=== PATIENT | female | born 1985 | race Caucasian/White ===

== ENCOUNTER 2020-04-27 13:39 | Emergency (ER) | payer SELFPAY ==
--- NOTE | 2020-04-27 14:55 | ER ---
Nurse's Notes [facility] Name: Alison Morelos Age: 34 yrs Sex: Female : 1985 Arrival Date: 04/27/2020 Time: 13:50 Bed 12 Private MD: Diagnosis: Allergic contact dermatitis Presentation: 04/27 14:16 Chief complaint: Patient states: Rashes on arms and legs x 1 week. Reports itchiness. ca1 Coronavirus screen: Proceed with normal triage. Patient denies a cough. Patient denies shortness of breath or difficulty breathing. Patient denies measured and/or subjective temperature greater than 100.4F prior to today's visit. Patient denies travel on a cruise ship or to a country the [facility] currently lists as an affected area. Patient denies contact with known and/or suspected case of COVID-19. Ebola Screen: Patient negative for fever greater than or equal to 101.5 degrees Fahrenheit, and additional compatible Ebola Virus Disease symptoms Patient denies exposure to infectious person. Patient denies travel to an Ebola-affected area in the 21 days before illness onset. No symptoms or risks identified at this time. Initial Sepsis Screen: Does the patient meet any 2 criteria? No. Patient's initial sepsis screen is negative. Does the patient have a suspected source of infection? No. Patient's initial sepsis screen is negative. Risk Assessment: Do you want to hurt yourself or someone else? Patient reports no desire to harm self or others. Onset of symptoms was April 27, 2020. 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 - Social history:: Smoking status: Patient reports the use of cigarette tobacco products, smokes one-half pack cigarettes per day. Screenin:51 Abuse screen: Denies threats or abuse. Denies injuries from another. Nutritional ss screening: No deficits noted. Tuberculosis screening: Never had TB. Fall Risk None identified. Assessment: 14:51 General: Appears in no apparent distress. comfortable, Behavior is calm, cooperative. ss Pain: Denies pain. Neuro: Level of Consciousness is awake, alert, obeys commands, Oriented to person, place, time, situation. Cardiovascular: Capillary refill < 3 seconds is brisk in bilateral fingers. Respiratory: Airway is patent Respiratory effort is even, unlabored, Respiratory pattern is regular, symmetrical. GI: Patient currently denies diarrhea, nausea, vomiting. Derm: Skin is intact, is healthy with good turgor, Skin is pink, warm \T\ dry. normal. Derm: Skin Skin is Skin is Rash noted that is itchy, on right arm, left arm, right leg and left leg. Musculoskeletal: Circulation, motion, and sensation intact. Range of motion: intact in all extremities. 14:51 Reassessment: Pt reports she climbed a tree and two days later her rash popped up. Has ss been 6 days. Vital Signs: 14:16 BP 111 / 79; Pulse 88; Resp 15 S; Temp 97.4(TE); Pulse Ox 100% on R/A; Weight 58.97 kg ca1 (R); Height 5 ft. 1 in. (154.94 cm) (M); 14:16 Body Mass Index 24.56 (58.97 kg, 154.94 cm) ca1 ED Course: 13:50 Patient arrived in ED. fj1 14:18 Triage completed. ca1 14:19 Arm band placed on right wrist. ca1 14:39 Patricia Bass [facility]-C [facility]. kb 14:39 Tommy Bone MD is Attending Physician. kb 14:51 Damari Bernal RN is Primary Nurse. ss 14:51 Patient has correct armband on for positive identification. Bed in low position. Call ss light in reach. 14:57 No provider procedures requiring assistance completed. Patient did not have IV access ss during this emergency room visit. Administered Medications: No medications were administered Outcome: 14:55 Discharge ordered by . kb 14:57 Discharged to home ss 14:57 Condition: good 14:57 Discharge instructions given to patient, Instructed on discharge instructions, follow up and referral plans. medication usage, Demonstrated understanding of instructions, follow-up care, medications, Prescriptions given X 2. 14:58 Patient left the ED. Signatures: Patricia Bass FNP-C OCCUPATIONAL THERAPY CO DIRECTOR-Damari Alarcon RN RN Gypsy Maldonado RN RN ca1 Shalom, Michael fj1
--- NOTE | 2020-04-27 14:55 | EDPHYS ---
Physician Documentation [facility] Name: Alison Morelos Age: 34 yrs Sex: Female : 1985 Arrival Date: 04/27/2020 Time: 13:50 Bed 12 Private MD: ED Physician Tommy Bone HPI: 04/27 14:53 This 34 yrs old Female presents to ER via Ambulatory with complaints of Rash. kb 14:53 The patient's rash thought to be caused by an unknown cause. The rash is located on the kb right arm, left arm, right leg and left leg. The rash can be described as macular, papular. Onset: The symptoms/episode began/occurred 7 day(s) ago. Associated signs and symptoms: Pertinent positives: itching. Severity of symptoms: At their worst the symptoms were moderate in the emergency department the symptoms are unchanged. Treatment given at home: Benadryl. The patient has not experienced similar symptoms in the past. The patient has not recently seen a physician. Pt reports rash to arms and legs that started on Friday and has been spreading. 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 - Social history:: Smoking status: Patient reports the use of cigarette tobacco products, smokes one-half pack cigarettes per day. ROS: 14:52 Constitutional: Negative for fever, chills, and weight loss, Cardiovascular: Negative kb for chest pain, palpitations, and edema, Respiratory: Negative for shortness of breath, cough, wheezing, and pleuritic chest pain, Abdomen/GI: Negative for abdominal pain, nausea, vomiting, diarrhea, and constipation, Back: Negative for injury and pain, MS/Extremity: Negative for injury and deformity, Neuro: Negative for headache, weakness, numbness, tingling, and seizure. 14:52 Skin: Positive for rash, of the right arm, left arm, right leg and left leg. Exam: 14:52 Constitutional: This is a well developed, well nourished patient who is awake, alert, kb and in no acute distress. Head/Face: Normocephalic, atraumatic. Chest/axilla: Normal chest wall appearance and motion. Nontender with no deformity. No lesions are appreciated. Cardiovascular: Regular rate and rhythm with a normal S1 and S2. No gallops, murmurs, or rubs. Normal PMI, no JVD. No pulse deficits. Respiratory: Lungs have equal breath sounds bilaterally, clear to auscultation and percussion. No rales, rhonchi or wheezes noted. No increased work of breathing, no retractions or nasal flaring. Abdomen/GI: Soft, non-tender, with normal bowel sounds. No distension or tympany. No guarding or rebound. No evidence of tenderness throughout. MS/ Extremity: Pulses equal, no cyanosis. Neurovascular intact. Full, normal range of motion. Neuro: Awake and alert, GCS 15, oriented to person, place, time, and situation. Cranial nerves II-XII grossly intact. Motor strength 5/5 in all extremities. Sensory grossly intact. Cerebellar exam normal. Normal gait. 14:52 Skin: rash a moderate rash is noted, consistent with contact dermatitis, on the right arm, left arm, right leg and left leg. Vital Signs: 14:16 BP 111 / 79; Pulse 88; Resp 15 S; Temp 97.4(TE); Pulse Ox 100% on R/A; Weight 58.97 kg ca1 (R); Height 5 ft. 1 in. (154.94 cm) (M); 14:16 Body Mass Index 24.56 (58.97 kg, 154.94 cm) ca1 MDM: 14:39 Patient medically screened. kb 14:51 Data reviewed: vital signs, nurses notes. Data interpreted: Pulse oximetry: on room air kb is 100 %. Interpretation: normal. Counseling: I had a detailed discussion with the patient and/or guardian regarding: the historical points, exam findings, and any diagnostic results supporting the discharge/admit diagnosis, the need for outpatient follow up, a family practitioner, to return to the emergency department if symptoms worsen or persist or if there are any questions or concerns that arise at home. Administered Medications: No medications were administered Disposition: 04/27/20 14:55 Discharged to Home. Impression: Allergic contact dermatitis. - Condition is Stable. - Discharge Instructions: Contact Dermatitis, [id number]. - Prescriptions for Pepcid 20 mg Oral Tablet - take 1 tablet by ORAL route every 12 hours for 5 days; 10 tablet. Prednisone 20 mg Oral Tablet - take 1 tablet by ORAL route once daily for 5 days; 5 tablet. - Medication Reconciliation Form, Thank You Letter, Antibiotic Education, Prescription Opioid Use form. - Follow up: Private Physician; When: 2 - 3 days; Reason: Recheck today's complaints, Continuance of care, Re-evaluation by your physician. Follow up: Emergency Department; When: As needed; Reason: Worsening of condition. Addendum: 05/01/2020 16:30 Co-signature as Attending Physician, Tommy Bone MD I agree with the assessment and k dr plan of care. Signatures: Patricia Bass, MAXIM-C STUDENT ACTIVITIES DIRECTOR-CkTommy Garcia MD MD [facility] Damari Bernal, NELSON RN ss Gypsy Maldonado RN RN ca1 Corrections: (The following items were deleted from the chart) 04/27 14:58 14:55 04/27/2020 14:55 Discharged to Home. Impression: Allergic contact dermatitis. ss Condition is Stable. Forms are Medication Reconciliation Form, Thank You Letter, Antibiotic Education, Prescription Opioid Use. Follow up: Private Physician; When: 2 - 3 days; Reason: Recheck today's complaints, Continuance of care, Re-evaluation by your physician. Follow up: Emergency Department; When: As needed; Reason: Worsening of condition. kb
[2020-04-27 15:26] VITALS: BP 111/79; TEMP 97.4; O2SAT 100
== END 2020-04-27 14:58 | disposition home or self-care (01) ==
LOC: ER 13:39
DX: L23.9 Allergic contact dermatitis, unspecified cause (principal); F17.210 Nicotine dependence, cigarettes, uncomplicated
CPT/HCPCS: 99282

== ENCOUNTER 2020-10-26 15:52 | Emergency (ER) | payer SELFPAY ==
--- OUTSIDE RECORDS SUMMARY | 2020-10-26 15:53 | XMS REPORT | Clinical Summary ---
:1985 Author Organization [facility] Address [address] [place] [address] Care Team Providers Name Role Phone Pcp, No MD Primary Care Provider Unavailable Allergies No Known Allergies Medications Not on file Active Problems Not on file Encounters Date Type Specialty Care Team Description 06/13/2020 Emergency Emergency Medicine Obinna Fortune MD Rash (Primary Dx) 06/13/2020 Travel 06/12/2020 Travel after 10/26/2019 Social History Tobacco Use Types Packs/Day Years Used Date Never Assessed Sex Assigned at Date Recorded Not on file Last Filed Vital Signs Vital Sign Reading Time Taken Comments Blood Pressure 135/80 06/13/2020 2:30 AM CDT Pulse 92 06/13/2020 2:30 AM CDT Temperature 36.6 C (97.9 F) 06/12/2020 5:45 PM CDT Respiratory Rate 17 06/13/2020 2:30 AM CDT Oxygen Saturation 98% 06/13/2020 2:30 AM CDT Inhaled Oxygen Concentration - - Weight 59 kg (130 lb) 06/12/2020 5:45 PM CDT Height 154.9 cm (5' 1") 06/12/2020 5:45 PM CDT Body Mass Index 24.56 06/12/2020 5:45 PM CDT Plan of Treatment Health Maintenance Due Date Last Done Comments CERVICAL CANCER SCREENING PAP ONLY (Age 21-65) 2006 INFLUENZA VACCINE (#1) 2020 Results Not on fileafter 10/26/2019
--- OUTSIDE RECORDS SUMMARY | 2020-10-26 15:53 | XMS REPORT | Continuity of Care Document ---
:1985 Author Organization [facility] t Address [address] [place] [address] Care Team Providers Name Role Phone Pcp MD Primary Care Physician Unavailable Devika ARZATE, R Attending Clinician Zurdo SEANZ L Attending Clinician Adin ARZATE O Attending Clinician Problems This patient has no known problems. Allergies, Adverse Reactions, Alerts This patient has no known allergies or adverse reactions. Social History Social Habit Start Date Stop Date Quantity Comments Source Sex Assigned At [facility] Medications This patient has no known medications. Vital Signs Vital Name Observation Time Observation Value Comments Source Systolic blood 2020-06-13 02:30:00 135 mm[Hg] [facility] Diastolic blood 2020-06-13 02:30:00 80 mm[Hg] [facility] Heart rate 2020-06-13 02:30:00 92 /min [facility] Respiratory rate 2020-06-13 02:30:00 17 /min [facility] Oxygen saturation in 2020-06-13 02:30:00 98 /min [facility] - Arterial blood by [facility] Pulse oximetry Body temperature 2020-06-12 17:45:00 36.61 Precious [facility] Body height 2020-06-12 17:45:00 154.9 cm [facility] Body weight 2020-06-12 17:45:00 58.968 kg [facility] BMI 2020-06-12 17:45:00 24.56 kg/m2 [facility] Procedures This patient has no known procedures. Plan of Care Planned Activity Planned Date Details Comments Source Future Scheduled 2020-06-[address] [facility] - Test 00:00:00 (#1) [code = [facility] INFLUENZA VACCINE (#1)] Future Scheduled 2006 Screening for JORDIN Khoury es - Test 00:00:00 malignant neoplasm Medical [facility] enter of cervix (procedure) [code = 236553523] Encounters Start End Encounter Admission Attending Care Care Encounter Source Date/Time Date/Time Type Type Clinicians Facility Department ID 2020-04-30 2020-05-01 Emergency Renner, TRAUMA [id number] 23:17:08 00:49:00 Dexter Omalley DRISCOLL [id number] 2019-12-04 2019-12-04 Emergency Morrical, TRAUMA [id number] 13:46:09 17:21:00 Paco Harvey DRISCOLL [id number] Results This patient has no known results.
[2020-10-26] MEDS ORDERED: NA CHLORIDE 0.9% 1,000 ML ONE (17:46)
[2020-10-26] MEDS ORDERED: KETOROLAC 30 MG/ML INJ ONE (17:46)
[2020-10-26 17:51] LABS: Urine Bacteria <20 /HPF (<20); Urine RBC <5 /HPF (NONE SEEN)
[2020-10-26 17:52] LABS: Urine Mucus 1+ /HPF (NONE SEEN)
[2020-10-26 17:52] LABS: Urine Blood NEGATIVE (NEG); Urine Glucose NEGATIVE (NEG); Urine Protein NEGATIVE (NEG); Urine Specific Gravity 1.025 (1.005-1.030)
--- NOTE | 2020-10-26 19:08 | RAD REPORT ---
EXAM DESCRIPTION: CT - Abdomen Pelvis Wo Contrast - 10/26/2020 6:33 pm CLINICAL HISTORY: Abdominal pain COMPARISON: None TECHNIQUE: Computed axial tomography of the abdomen and pelvis was obtained. IV and oral contrast we re not requested. All CT scans are performed using dose optimization technique as appropriate and may include automated exposure control or mA/KV adjustment according to patient size. FINDINGS: The evaluation of solid organs, vessels and bowel is limited secondary to the lack of con trast administration. The liver, pancreas, adrenals and kidneys appear grossly normal. Splenic granulomata The appendix is normal. There is no evidence of diverticulitis. Moderate amount of stool within the colon. An IUD is in good position Mild dilatation of several loops of jejunum. Mild wall thickening. Fluid is present within jejunum Mild to moderate anterior subluxation L5 on S1. Spondylolysis L5 IMPRESSION: Mild dilatation of several loops of jejunum. Mild wall thickening. Fluid is present with in jejunum. These findings may indicate an enteritis Moderate amount stool within the colon
[2020-10-26 21:21] LABS: Basophils % 0.1 % (0-1.3); Hematocrit 41.7 % (36.0-45.0); Lymphocytes % 4.1 % (15.3-44.8); MPV 8.7 fL (7.6-11.3); RBC Red Blood Cell Count 4.65 M/uL (3.86-4.86)
[2020-10-26 21:24] LABS: BUN Blood Urea Nitrogen 12 mg/dL (7-18); Bicarbonate 24 mmol/L (21-32); Glucose Level 113 mg/dL (74-106); Potassium 3.4 mmol/L (3.5-5.1); Sodium Level 138 mmol/L (136-145)
[2020-10-26 22:00] LABS: Blood Morphology Comment NOT SEEN (NOT SEEN); Platelet Estimate ADEQ
[2020-10-26] MEDS ORDERED: AZITHROMYCIN 250 MG TAB ONE (22:16)
[2020-10-26] MEDS ORDERED: CEFTRIAXONE 250 MG/VIAL ONE (22:17)
[2020-10-26] MEDS ORDERED: WATER FOR INJ,STERILE 10 ML ONE (22:18)
--- NOTE | 2020-10-26 23:38 | EDPHYS ---
Physician Documentation [facility] Name: Alison Morelos Age: 35 yrs Sex: Female : 1985 Arrival Date: 10/26/2020 Time: 15:54 Bed 23 Private MD: ED Physician Tommy Bone HPI: 10/26 20:18 This 35 yrs old Female presents to ER via Ambulatory with complaints of Side kb Pain. 20:18 The patient presents with abdominal pain in the left lower quadrant. Onset: The kb symptoms/episode began/occurred this morning. The symptoms do not radiate. Associated signs and symptoms: none. The symptoms are described as constant. Modifying factors: The symptoms are alleviated by nothing, the symptoms are aggravated by pressure. Severity of pain: At its worst the pain was moderate in the emergency department the pain is unchanged. The patient has not experienced similar symptoms in the past. The patient has not recently seen a physician. Pt reports LLQ pain that started this morning. Also reports vaginal discharge for 4 days. Reports she has had unprotected sex and believes she got a STD from a partner. 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 - Social history:: Smoking status: Patient reports the use of cigarette tobacco products, smokes one-half pack cigarettes per day. ROS: 20:18 Constitutional: Negative for fever, chills, and weight loss, Cardiovascular: Negative kb for chest pain, palpitations, and edema, Respiratory: Negative for shortness of breath, cough, wheezing, and pleuritic chest pain, Back: Negative for injury and pain, MS/Extremity: Negative for injury and deformity, Skin: Negative for injury, rash, and discoloration, Neuro: Negative for headache, weakness, numbness, tingling, and seizure. 20:18 Abdomen/GI: Positive for abdominal pain, Negative for nausea, vomiting, and diarrhea. 20:18 : Positive for vaginal discharge. Exam: 20:18 Constitutional: This is a well developed, well nourished patient who is awake, alert, kb and in no acute distress. Head/Face: Normocephalic, atraumatic. Chest/axilla: Normal chest wall appearance and motion. Nontender with no deformity. No lesions are appreciated. Cardiovascular: Regular rate and rhythm with a normal S1 and S2. No gallops, murmurs, or rubs. Normal PMI, no JVD. No pulse deficits. Respiratory: Lungs have equal breath sounds bilaterally, clear to auscultation and percussion. No rales, rhonchi or wheezes noted. No increased work of breathing, no retractions or nasal flaring. Skin: Warm, dry with normal turgor. Normal color with no rashes, no lesions, and no evidence of cellulitis. MS/ Extremity: Pulses equal, no cyanosis. Neurovascular intact. Full, normal range of motion. Neuro: Awake and alert, GCS 15, oriented to person, place, time, and situation. Cranial nerves II-XII grossly intact. Motor strength 5/5 in all extremities. Sensory grossly intact. Cerebellar exam normal. Normal gait. 20:18 Abdomen/GI: Inspection: abdomen appears normal, Bowel sounds: normal, in all quadrants, Palpation: soft, in all quadrants, mild abdominal tenderness, in the left lower quadrant. Vital Signs: 16:10 BP 118 / 91; Pulse 115; Resp 18; Temp 98.7(O); Pulse Ox 100% on R/A; Weight 57.61 kg; em Height 5 ft. 1 in. (154.94 cm); Pain 8/10; 17:30 BP 107 / 59; Pulse 107; Resp 16; Pulse Ox 98% on R/A; vg1 18:30 BP 112 / 78; Pulse 96; Resp 16; Pulse Ox 100% on R/A; vg1 19:00 BP 119 / 81; Pulse 98; Resp 16; Pulse Ox 100% on R/A; vg1 20:00 BP 110 / 76; Pulse 100; Resp 18; Pulse Ox 100% on R/A; vg1 21:00 BP 120 / 85; Pulse 105; Resp 18; Pulse Ox 97% on R/A; vg1 22:00 BP 107 / 69; Pulse 103; Resp 16; Pulse Ox 98% on R/A; vg1 23:00 BP 107 / 68; Pulse 102; Resp 14; Pulse Ox 98% on R/A; vg1 16:10 Body Mass Index 24.00 (57.61 kg, 154.94 cm) em MDM: 17:12 Patient medically screened. kb 20:17 Data reviewed: vital signs, nurses notes. Data interpreted: Pulse oximetry: on room air kb is 100 %. Interpretation: normal. 21:58 ED course: Pt reports she doesn't drink fluids like she should and has had decreased kb urine output. . 23:29 Counseling: I had a detailed discussion with the patient and/or guardian regarding: the kb historical points, exam findings, and any diagnostic results supporting the discharge/admit diagnosis, lab results, radiology results, the need for outpatient follow up, a family practitioner, an OB/Gyne specialist, to return to the emergency department if symptoms worsen or persist or if there are any questions or concerns that arise at home. 10/26 16:20 Order name: Urine Microscopic Only; Complete Time: 17:54 kb 10/26 17:22 Order name: Basic Metabolic Panel; Complete Time: 21:37 kb 10/26 17:22 Order name: CBC with Diff; Complete Time: 22:06 kb 10/26 17:29 Order name: Urine Dipstick--Ancillary (enter results); Complete Time: 17:54 kj1 10/26 17:29 Order name: Urine --Ancillary (enter results); Complete Time: 17:54 kj1 10/26 17:53 Order name: Urine Culture EDKS 10/26 18:32 Order name: Abdomen ; Complete Time: 19:11 [facility] 10/26 21:31 Order name: Manual Differential; Complete Time: 22:06 [facility] 10/26 16:20 Order name: Urine Test (obtain specimen); Complete Time: 17:27 kb 10/26 16:20 Order name: Urine Dipstick-Ancillary (obtain specimen); Complete Time: 17:27 kb 10/26 17:22 Order name: IV Saline Lock; Complete Time: 23:16 kb 10/26 17:22 Order name: Labs collected and sent; Complete Time: 20:03 kb Administered Medications: 20:02 Not Given (Physician Discretion): NS 0.9% 1000 ml IV at 1000 ml once kb 20:02 Not Given (Other Intervention Used): TORadol 30 mg IVP once kb 20:10 Drug: TORadol 30 mg Route: IM; Site: left deltoid; vg1 21:09 Follow up: Response: No adverse reaction; Pain is decreased vg1 22:15 Drug: Zithromax 1 grams Route: PO; vg1 10/27 00:33 Follow up: Response: No adverse reaction vg1 10/26 22:15 Drug: Rocephin (cefTRIAXone) 250 mg Route: IM; Site: right gluteus; vg1 10/27 00:33 Follow up: Response: No adverse reaction vg1 10/26 23:14 Drug: NS 0.9% 1000 ml Route: IV; Rate: 1000 ml; Site: right wrist; vg1 10/27 00:33 Follow up: IV Status: Completed infusion; IV Intake: 1000ml vg1 Disposition: 06:09 Co-signature as Attending Physician, Tommy Bone MD I agree with the assessment and kdr plan of care. PA/SEISMOLOGY TECHNICAL OFFICER's history reviewed, patient interviewed, and examined. Disposition: 10/26/20 23:37 Discharged to Home. Impression: Lower abdominal pain, unspecified, Enteritis. - Condition is Stable. - Discharge Instructions: Sexually Transmitted Disease, [id number], Abdominal Pain, Adult, [id number]. - Prescriptions for Cipro 500 mg Oral Tablet - take 1 tablet by ORAL route every 12 hours for 10 days; 20 tablet. - Medication Reconciliation Form, Thank You Letter, Antibiotic Education, Prescription Opioid Use form. - Follow up: Emergency Department; When: As needed; Reason: Worsening of condition. Follow up: Private Physician; When: 2 - 3 days; Reason: Recheck today's complaints, Continuance of care, Re-evaluation by your physician. Signatures: Dispatcher [employer] [facility] Patricia Bass, TOBACCO CONDITIONER-C TOBACCO CONDITIONER-Tommy Moses MD MD kdr Munoz, Edgar, RN RN Jovana Cartwright, RN RN vg1 Corrections: (The following items were deleted from the chart) 10/26 18:31 17:23 Abdomen Pelvis W Con+CT.RAD.BRZ ordered. [facility] 20:19 20:17 Counseling: I had a detailed discussion with the patient and/or guardian adan regarding: the historical points, exam findings, and any diagnostic results supporting the discharge/admit diagnosis, the need for outpatient follow up, a pipeliner, to return to the emergency department if symptoms worsen or persist or if there are any questions or concerns that arise at home, adan 20:19 20:17 Response to treatment: the patient's symptoms have markedly improved after kb treatment, 10/27 00:41 10/26 23:37 10/26/2020 23:37 Discharged to Home. Impression: Lower abdominal pain, vg1 unspecified; Enteritis. Condition is Stable. Forms are Medication Reconciliation Form, Thank You Letter, Antibiotic Education, Prescription Opioid Use. Follow up: Emergency Department; When: As needed; Reason: Worsening of condition. Follow up: Private Physician; When: 2 - 3 days; Reason: Recheck today's complaints, Continuance of care, Re-evaluation by your physician. adan 10/27 13:31 10/26 20:18 Pt reports LLQ pain that started this morning. Also reports vaginal kb discharge for 4 days.. kb
--- NOTE | 2020-10-26 23:38 | ER ---
Nurse's Notes [facility] Name: Alison Morelos Age: 35 yrs Sex: Female : 1985 Arrival Date: 10/26/2020 Time: 15:54 Bed 23 Private MD: Diagnosis: Lower abdominal pain, unspecified;Enteritis Presentation: 10/26 16:10 Chief complaint: Patient states: reports lower abdominal pain that started this em morning, also reports vaginal discharge that has foul odor, denies fever N/V/D. Coronavirus screen: Client denies travel out of the [place] in the last 14 days. Ebola Screen: Patient negative for fever greater than or equal to 101.5 degrees Fahrenheit, and additional compatible Ebola Virus Disease symptoms Patient denies exposure to infectious person. Patient denies travel to an Ebola-affected area in the 21 days before illness onset. No symptoms or risks identified at this time. Initial Sepsis Screen: Does the patient meet any 2 criteria? HR > 90 bpm. No. Patient's initial sepsis screen is negative. Does the patient have a suspected source of infection? Yes: Dysuria/Frequency/Urgency/UTI. Risk Assessment: Do you want to hurt yourself or someone else? Patient reports no desire to harm self or others. Onset of symptoms was October 20, 2020. 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 - Social history:: Smoking status: Patient reports the use of cigarette tobacco products, smokes one-half pack cigarettes per day. Screenin:35 Abuse screen: Denies threats or abuse. Nutritional screening: No deficits noted. vg1 Tuberculosis screening: No symptoms or risk factors identified. Fall Risk None identified. Assessment: 17:35 General: Appears in no apparent distress. Behavior is calm, cooperative. vg1 17:35 Pain: Complains of pain in left upper quadrant and left lower quadrant Pain currently vg1 is 6 out of 10 on a pain scale. Pain began this morning. Neuro: Level of Consciousness is awake, alert, obeys commands, Oriented to person, place, time, situation. Cardiovascular: Patient's skin is warm and dry. Respiratory: Airway is patent Respiratory effort is even, unlabored, Respiratory pattern is regular, symmetrical. GI: Abdomen is flat, Bowel sounds present X 4 quads. hypoactive in right upper quadrant, left upper quadrant, right lower quadrant and left lower quadrant Abd is soft and non tender X 4 quads. Reports Last BM on Friday. Stated stool was hard and were like alka. Stated that usually has a BM once a week. Patient currently denies diarrhea, nausea, vomiting. : Reports vaginal discharge with odor. EENT: No signs and/or symptoms were reported regarding the EENT system. Derm: Skin is intact, is healthy with good turgor. Musculoskeletal: Circulation, motion, and sensation intact. 17:45 Reassessment: Unable to find a vein to begin IV. Asked for assistance. Provider vg1 notified. 18:50 Reassessment: Patient appears in no apparent distress at this time. No changes from vg1 previously documented assessment. Patient is alert, oriented x 3, equal unlabored respirations, skin warm/dry/pink. Lab was called to assist in blood draw. Provider Notified. 20:11 Reassessment: Patient appears in no apparent distress at this time. Rated pain level vg1 03/29. 21:08 Reassessment: Patient appears in no apparent distress at this time. Provider Notified. vg1 Patient denies pain at this time. 21:29 Reassessment: Spoke with Josselin Allen from lab and reported patients WBC results 23.9. vg1 Notified provider. 22:40 Reassessment: Patient appears in no apparent distress at this time. No changes from vg1 previously documented assessment. Patient is alert, oriented x 3, equal unlabored respirations, skin warm/dry/pink. 23:44 Reassessment: Patient appears in no apparent distress at this time. Patient resting vg1 with eyes closed. Patient up for d/c, awaiting for IV fluids to finish. Vital Signs: 16:10 BP 118 / 91; Pulse 115; Resp 18; Temp 98.7(O); Pulse Ox 100% on R/A; Weight 57.61 kg; em Height 5 ft. 1 in. (154.94 cm); Pain 8/10; 17:30 BP 107 / 59; Pulse 107; Resp 16; Pulse Ox 98% on R/A; vg1 18:30 BP 112 / 78; Pulse 96; Resp 16; Pulse Ox 100% on R/A; vg1 19:00 BP 119 / 81; Pulse 98; Resp 16; Pulse Ox 100% on R/A; vg1 20:00 BP 110 / 76; Pulse 100; Resp 18; Pulse Ox 100% on R/A; vg1 21:00 BP 120 / 85; Pulse 105; Resp 18; Pulse Ox 97% on R/A; vg1 22:00 BP 107 / 69; Pulse 103; Resp 16; Pulse Ox 98% on R/A; vg1 23:00 BP 107 / 68; Pulse 102; Resp 14; Pulse Ox 98% on R/A; vg1 16:10 Body Mass Index 24.00 (57.61 kg, 154.94 cm) em ED Course: 15:54 Patient arrived in ED. ds1 16:13 Triage completed. em 16:14 Arm band placed on. em 16:19 Patricia Bass FNP-C is PHCP. kb 16:19 Tommy Bone MD is Attending Physician. kb 17:15 Jovana Black, NELSON is Primary Nurse. vg1 17:26 Radiology exam delayed due to test not completed at this time. vm2 17:27 Urine collected: clean catch specimen, cloudy. em 17:40 Patient has correct armband on for positive identification. Bed in low position. Call vg1 light in reach. Door closed. Warm blanket given. 18:[address] via stretcher. vg1 18:34 Abdomen In Process Unspecified. EDMS 18:38 Patient moved back from [address]. vg1 18:40 Missed attempt(s): 22 gauge in right antecubital area. Bleeding controlled, band aid em applied, catheter tip intact. 19:00 Missed attempt(s): 20 gauge in right antecubital area. Bleeding controlled, band aid jp3 applied, catheter tip intact. 19:45 Initial lab(s) drawn, by me, sent to lab. jp3 22:31 Missed attempt(s): 22 gauge in left antecubital area. Bleeding controlled, band aid sg applied, catheter tip intact. Missed attempt(s): 22 gauge in left forearm. Bleeding controlled, band aid applied, catheter tip intact. 23:16 Inserted saline lock: 24 gauge in right wrist, using aseptic technique. rr5 10/27 00:34 No provider procedures requiring assistance completed. IV discontinued, intact, vg1 bleeding controlled, No redness/swelling at site. Pressure dressing applied. Administered Medications: 10/26 20:02 Not Given (Physician Discretion): NS 0.9% 1000 ml IV at 1000 ml once kb 20:02 Not Given (Other Intervention Used): TORadol 30 mg IVP once kb 20:10 Drug: TORadol 30 mg Route: IM; Site: left deltoid; vg1 21:09 Follow up: Response: No adverse reaction; Pain is decreased vg1 22:15 Drug: Zithromax 1 grams Route: PO; vg1 10/27 00:33 Follow up: Response: No adverse reaction vg1 10/26 22:15 Drug: Rocephin (cefTRIAXone) 250 mg Route: IM; Site: right gluteus; vg1 10/27 00:33 Follow up: Response: No adverse reaction vg1 10/26 23:14 Drug: NS 0.9% 1000 ml Route: IV; Rate: 1000 ml; Site: right wrist; vg1 10/27 00:33 Follow up: IV Status: Completed infusion; IV Intake: 1000ml vg1 Intake: 00:33 IV: 1000ml; Total: 1000ml. vg1 Outcome: 10/26 23:37 Discharge ordered by . kb 10/27 00:34 Discharged to home ambulatory. vg1 Condition: stable Discharge instructions given to patient, Instructed on discharge instructions, follow up and referral plans. medication usage, Demonstrated understanding of instructions, follow-up care, medications, Prescriptions given X 1. 00:41 Patient left the ED. vg1 Signatures: Dispatcher [employer] EDHI Patricia Bass, [employer] SALES REPRESENTATIVE-Sammy Danielson RN RN sg Hoang Campos, NELSON RN Ester Alba ds1 Jovana Trevizo2 Estiven Elizondo jp3 Nishant Fuentes RN RN rr5 Jovana Black, RN RN vg1 Corrections: (The following items were deleted from the chart) 10/26 19:34 18:50 Reassessment: Lab was called to assist in blood draw. vg1 vg1 19:34 18:50 Reassessment: Patient appears in no apparent distress at this time. No changes vg1 from previously documented assessment. Patient is alert, oriented x 3, equal unlabored respirations, skin warm/dry/pink. Lab was called to assist in blood draw. vg1
[2020-10-27 01:31] VITALS: TEMP 98.7
[2020-10-27 01:39] VITALS: O2SAT 98
[2020-10-27 01:40] VITALS: BP 107/68
== END 2020-10-27 00:41 | disposition home or self-care (01) ==
LOC: ER 15:52
DX: K52.9 Noninfective gastroenteritis and colitis, unspecified (principal); F17.210 Nicotine dependence, cigarettes, uncomplicated
CPT/HCPCS: 36415; 74176; 80048; 81003; 81015; 81025; 85025; 87086; 87088; 96360; 96372; 99284; J0696; J7030

== ENCOUNTER 2021-10-24 09:42 | Emergency (ER) | payer SELFPAY ==
--- OUTSIDE RECORDS SUMMARY | 2021-10-24 09:46 | XMS REPORT | Continuity of Care Document ---
:[address] [facility] t Address [address] [place] [address] Care Team Providers Name Role Phone Tutu Ramirez Attending Clinician TUTU MCGILL Attending Clinician Unavailable Lyssa Shepard APN Attending Clinician Lyssa SHEPARD Attending Clinician Unavailable Morjim ARZATE O Attending Clinician Problems Condition Condition Condition Status Onset Resolution Last Treating Co mments Source Name Details Category Date Date Treatment Clinician Date Acute Acute Disease Active 2016-10 [facility] osteomyeli osteomyeli 0-22 it y of [place] [facility] Allergies, Adverse Reactions, Alerts Allergy Allergy Status Severity Reaction(s) Onset Inactive Treating Comm ents Source Name Type Date Date Clinician NO KNOWN Drug Active Univers ALLERGIE Class ity of [facility] NO KNOWN Allergy Active [facility] Social History Social Habit Start Date Stop Date Quantity Comments Source Exposure to Not sure [facility] SARS-CoV-2 (event) Medica l Branch Sex Ass[birth year] [facility] 00:00:00 00:00:00 Medical Branch Smoking Status Start Date Stop Date Source Unknown if ever smoked [facility] acute hospital Medications Ordered Filled Start Stop Current Ordering Indication Dosage Frequency Signature Comments Components Source Medication Medication Date Date Medication? Clinician (SIG) Name Name cephALEXin 2020-0 202- No 500mg 500 mg, Un jareth (KEFLEX) 7-17 07-17 Oral, ity of capsule 500 01:30: 00:31 ONCE, 1 [place] 00 :00 dose, Fri Medical 05/04/21 at Branch 2030, PRIMITIVO
Re ason for Anti-Infec tive: Documented Infection< br>Documen nj Infection Site: Skin / Soft Tissue
Duration of Therapy: 10 days ibuprofen Yes [id number] 600mg Take 1 U nivers 600 mg 7-16 tablet by ity of tablet 00:00: mouth [place] 00 every 6 Medical (six) Branch hours as needed for Pain (scale 4-6). cephALEXin 2020- No [id number] 500mg Take 1 Univers (KEFLEX) 7-16 07-27 capsule by ity of 500 mg 00:00: 04:59 mouth 3 [place] capsule 00 :00 (three) Medical times Branch daily for 10 days. clindamycin Yes 450mg 450 mg, Un jareth (CLEOCIN 7-13 Oral, QID, ity o f HCL) 13:00: First dose [place] capsule 450 00 on Mon Medica l mg 05/01/20 at Branch 0800, Until Discontinu ed, PRIMITIVO
Re ason for Anti-Infec tive: Empiric Therapy for Suspected Infection< br>Empiric Therapy Site: Skin / Soft tissue
Duration of therapy: 72 hours
R estricted use approved by: ED PROVIDER<b r>Indicati on for Clindamyci n use: cellulitis clindamycin 2019- 2020- No [id number] 450mg Take 3 Univers 150 mg 7-13 07-24 capsules ity of capsule 00:00: 04:59 by mouth 3 [place] 00 :00 (three) Medical times Branch daily for 10 days. sulfamethox 2019-0 Yes [id number] 2{tbl} Take 2 Univers azole-trime 2-15 tablets by it y of thoprim 00:00: mouth [place] 800-160 mg 00 every 12 Medic al per tablet (twelve) Branc h hours. hydrocortis 2019-0 Yes [id number] Apply to Univers one 2.5 % 2-15 affected ity of cream 00:00: area(s) 2 [place] 00 (two) Medical times Branch daily. methylPREDN 2019-0 Yes [id number] Take by [facility] ISolone 4 2-15 mouth ity of mg tablets 00:00: [place]-INSTRU [place] 00 CTIONS. Medical follow Branch package directions sulfamethox 2020-0 Yes [id number] 2{tbl} Take 2 Univers azole-trime 2-15 tablets by it y of thoprim 00:00: mouth [place] 800-160 mg 00 every 12 Medic al per tablet (twelve) Branc h hours. hydrocortis 2020-0 Yes [id number] Apply to Univers one 2.5 % 2-15 affected ity of cream 00:00: area(s) 2 [place] (two) Medical times Branch daily. methylPREDN 2020-0 Yes [id number] Take by Univers ISolone 4 2-15 mouth ity of mg tablets 00:00: [place]-INSTRU [place] CTIONS. Medical follow Branch package directions sulfamethox 2020-0 Yes [id number] 2{tbl} Take 2 Univers azole-trime 2-15 tablets by it y of thoprim 00:00: mouth [place] 800-160 mg 00 every 12 Medic al per tablet (twelve) Branc h hours. hydrocortis 2020-0 Yes [id number] Apply to Univers one 2.5 % 2-15 affected ity of cream 00:00: area(s) 2 [place] (two) Medical times Branch daily. methylPREDN 2020-0 Yes [id number] Take by Univers ISolone 4 2-15 mouth ity of mg tablets 00:00: SEE-INSTRU [place] 00 CTIONS. Medical follow Branch package directions cephALEXin 2020-0 2020- No [id number] 500mg Take 1 Univers 500 mg 2-15 - capsule by ity of capsule 00:00: 05:59 mouth 2 [place] 00 :00 (two) Medical times Branch daily for 10 days. ketorolac 2018-0 Yes 10mg Take 1 Univer s 10 mg 9-03 tablet by ity of tablet 00:00: mouth [place] 00 every 6 Medical (six) Branch hours as needed for Pain (scale 4-6). ketorolac 2018-0 Yes 10mg Take 1 Univer s 10 mg 9-03 tablet by ity of tablet 00:00: mouth [place] 00 every 6 Medical (six) Branch hours as needed for Pain (scale 4-6). ketorolac 2018-0 Yes 10mg Take 1 Univer s 10 mg 9-03 tablet by ity of tablet 00:00: mouth [place] 00 every 6 Medical (six) Branch hours as needed for Pain (scale 4-6). cephALEXin 2016- Yes 500mg Take 1 Univ ers (KEFLEX) 0-22 capsule by ity o f 500 mg 00:00: mouth 4 [place] capsule 00 (four) Medical times Branch daily. traMADOL 2016-10 Yes 50mg Take 1 Univers (ULTRAM) 50 0-22 tablet by ity of mg tablet 00:00: mouth [place] 00 every 6 Medical (six) Branch hours as needed for Pain (scale 7-10). cephALEXin 2016-10 Yes 500mg Take 1 Univ ers (KEFLEX) 0-22 capsule by ity o f 500 mg 00:00: mouth 4 [place] capsule 00 (four) Medical times Branch daily. traMADOL 2016-10 Yes 50mg Take 1 Univers (ULTRAM) 50 0-22 tablet by ity of mg tablet 00:00: mouth [place] 00 every 6 Medical (six) Branch hours as needed for Pain (scale 7-10). cephALEXin 2016-10 Yes 500mg Take 1 Univ ers (KEFLEX) 0-22 capsule by ity o f 500 mg 00:00: mouth 4 [place] capsule 00 (four) Medical times Branch daily. traMADOL 2016-10 Yes 50mg Take 1 Univers (ULTRAM) 50 0-22 tablet by ity of mg tablet 00:00: mouth [place] 00 every 6 Medical (six) Branch hours as needed for Pain (scale 7-10). traMADOL 2016- Yes 50mg Take 1 Univers (ULTRAM) 50 0-11 tablet by ity of mg tablet 00:00: mouth [place] 00 every 6 Medical (six) Branch hours as needed for Pain (scale 4-6). traMADOL 2016- Yes 50mg Take 1 Univers (ULTRAM) 50 0-11 tablet by ity of mg tablet 00:00: mouth [place] 00 every 6 Medical (six) Branch hours as needed for Pain (scale 4-6). traMADOL 2016- Yes 50mg Take 1 Univers (ULTRAM) 50 0-11 tablet by ity of mg tablet 00:00: mouth [place] 00 every 6 Medical (six) Branch hours as needed for Pain (scale 4-6). proMETHazin Yes 25mg Take 1 Univ ers e 25 mg 3-19 tablet by ity of tablet 00:00: mouth [place] 00 every 6 Medical (six) Branch hours as needed for Nausea and Vomiting (N/V). metroNIDAZO 2017-0 Yes 500mg Take 1 Uni vers LE 500 mg 3-19 tablet by ity o f tablet 00:00: mouth 2 [place] 00 (two) Medical times Branch daily. proMETHazin 2017-0 Yes 25mg Take 1 Univ ers e 25 mg 3-19 tablet by ity of tablet 00:00: mouth [place] 00 every 6 Medical (six) Branch hours as needed for Nausea and Vomiting (N/V). metroNIDAZO 2017-0 Yes 500mg Take 1 Uni vers LE 500 mg 3-19 tablet by ity o f tablet 00:00: mouth 2 [place] 00 (two) Medical times Branch daily. proMETHazin 2017-0 Yes 25mg Take 1 Univ ers e 25 mg 3-19 tablet by ity of tablet 00:00: mouth [place] 00 every 6 Medical (six) Branch hours as needed for Nausea and Vomiting (N/V). metroNIDAZO 2017-0 Yes 500mg Take 1 Uni vers LE 500 mg 3-19 tablet by ity o f tablet 00:00: mouth 2 [place] 00 (two) Medical times Branch daily. Vital Signs Vital Name Observation Time Observation Value Comments Source Systolic blood 2021-05-05 00:00:00 135 mm[Hg] [place] [facility] 2021-05-05 00:00:00 91 mm[Hg] [facility] Heart rate 2021-05-05 00:00:00 111 /min [facility] Body temperature 2021-05-05 00:00:00 36.78 [facility] Respiratory rate 2021-05-05 00:00:00 16 /min [facility] Body weight 2021-05-05 00:00:[address] [facility] BMI 2021-05-05 00:00:00 23.62 kg/m2 [facility] Oxygen saturation in 2021-05-05 00:00:00 99 /min [facility] Arterial blood by [facility] Pulse oximetry Branch HEIGHT 2020-06-12 00:00:00 154.9 cm WEIGHT 2020-06-12 00:00:00 58.968 kg Systolic blood 2020-05-01 04:16:00 128 mm[Hg] Univer sity of pressure [place] [facility] Diastolic blood 2020-05-01 04:16:00 95 mm[Hg] Unive rsity of pressure [place] [facility] Heart rate 2020-05-01 04:16:00 95 /min [facility] [place] [facility] Body temperature 2020-05-01 04:16:00 36.94 Precious [facility] [place] [facility] Respiratory rate 2020-05-01 04:16:00 16 /min [facility] [place] [facility] Body weight 2020-05-01 04:16:00 58.999 kg [facility] [place] [facility] BMI 2020-05-01 04:16:00 24.58 kg/m2 [facility] [place] [facility] Oxygen saturation in 2020-05-01 04:16:00 97 /min University of [facility]ial blood by [facility] Pulse oximetry Branch Systolic blood 2020-05-01 04:16:00 128 mm[Hg] Univer sity of pressure [place] [facility] Diastolic blood 2020-05-01 04:16:00 95 mm[Hg] Unive rsity of pressure [place] [facility] Heart rate 2020-05-01 04:16:00 95 /min [facility] [place] [facility] Body temperature 2020-05-01 04:16:00 36.94 Precious [facility] [place] [facility] Respiratory rate 2020-05-01 04:16:00 16 /min [facility] [place] [facility] Body weight 2020-05-01 04:16:00 58.999 kg [facility] [place] [facility] BMI 2020-05-01 04:16:00 24.58 kg/m2 [facility] [place] [facility] Oxygen saturation in 2020-05-01 04:16:00 97 /min [facility] Pulse oxim[facility] Branch Body temperature 2019-12-04 21:54:00 36.78 Precious [facility] [place] [facility] Respiratory rate 2019-12-04 21:54:00 18 /min [facility] [place] [facility] Oxygen saturation in 2019-12-04 21:54:00 100 /min University [facility] by [facility] Pulse oxim[facility] Branch Systolic blood 2019-12-04 21:54:00 131 mm[Hg] Univer sity of pressure [place] [facility] Diastolic blood 2019-12-04 21:54:00 89 mm[Hg] Unive rsity of pressure [facility] Heart rate 2019-12-04 21:54:00 96 /min Universi ty of [facility] Body weight 2019-12-04 19:44:00 68.04 kg Universi ty of [facility] BMI 2019-12-04 19:44:00 28.34 kg/m2 Universi ty of [facility] Body temperature 2019-12-04 21:54:00 36.78 Precious Univ ersity of [facility] Respiratory rate 2019-12-04 21:54:00 18 /min [facility] Oxygen saturation in 2019-12-04 21:54:00 100 /min [facility] Arterial blood by [facility] Pulse oximetry Branch Systolic blood 2019-12-04 21:54:00 131 mm[Hg] Univer sity of pressure [facility] Diastolic blood 2019-12-04 21:54:00 89 mm[Hg] Unive rsity of pressure [facility] Heart rate 2019-12-04 21:54:00 96 /min Universi ty of [facility] Body weight 2019-12-04 19:44:00 68.04 kg Universi ty of [facility] BMI 2019-12-04 19:44:00 28.34 kg/m2 Universi ty [facility] Procedures Procedure Date / Time Performed Performing Clinician Sourc e URINALYSIS 2021-05-05 00:28:00 Kehinde Mcgill [place] [facility] NOTICE OF PRIVACY 2021-05-04 23:51:32 [facility]igned, [facility] Branch CONSENT/REFUSAL FOR 2021-05-04 23:51:08 Doctor Unassigned, [facility] [place] [facility] DI[facility] AND Name Medical Branch TREATMENT Encounters Start End Encounter Admission Attending Care Care Encounter Source Date/Time Date/Time Type Type Clinicians Facility Department ID 2021-05-04 2021-05-04 Emergency Kehinde Mcgill [facility] [id number] [facility] [place] [facility] 18:58:00 20:28:00 Tutu Martinez [id number] i [facility] [id number] [facility] [id number] [facility] 084 Branch 2021-05-04 2021-05-04 Emergency X Kehinde MCGILL [facility] ERT [id number] Univers 18:48:00 18:48:00 ity of [facility] 2020-06-12 2020-06-12 Emergency ER [facility] Emergency [id number] [facility] 17:39:00 17:39:00 2020-04-30 2020-05-01 Emergency Shepard, TRAUMA [id number] 23:17:08 00:49:00 Sandhya L CENTER [id number] 2020-04-30 2020-05-01 Emergency Shepard, TRAUMA [id number] Univers 23:17:08 00:49:00 Sandhya L CENTER [id number] [place] [id number] [address] 2020-04-30 2020-04-30 Emergency X DEVYN, [facility] ERT [id number] Univers 23:17:08 23:17:08 SANDHYA ity of [facility] 2020-03-21 2020-03-21 Emergency X [facility] ERT [id number] Univers 11:28:00 11:28:00 ity of [facility] 2019-12-04 2019-12-04 Emergency Morrical, TRAUMA [id number] Univers 13:46:09 17:21:00 [place] [facility] [id number] [place] [id number] [address] 2019-12-04 2019-12-04 Emergency Morrical, TRAUMA [id number] 13:46:09 17:21:00 [place] [facility] [id number] Results Test Description Test Time Test Comments Results Result Comments Source URINALYSIS 2021-05-05 01:06:22 Test Item Value Reference Range Interpretation Comme nts APPEARANCE (test code = Clear Clear [id number]) COLOR (test code = 2928625129) Ashley Yellow A PH (test code = 5877479598) 4.8-8.0 SP GRAVITY (test code = 1.003-1.030 9910449996) GLU U QUAL (test code = Normal Normal 4898983815) BLOOD (test code = 8256073499) Negative Negative KETONES (test code = 4819524396) 5 mg/dL Negative A PROTEIN (test code = 2887-8) Negative Negative UROBILIN (test code = Normal Normal 2971266308) BILIRUBIN (test code = Negative Negative 2604291807) NITRITE (test code = 4522020240) Negative Negative LEUK CRUZ (test code = Negative Negative 0442625849) RBC/HPF (test code = 5940333554) See_Comment [Automated message] The system which [employer] nerated this result transmit jn reference range: 0 - 3 HP F. The reference range was not used to interpret th is result as normal/abnormal . WBC/HPF (test code = 5803073368) See_Comment [Automated message] The system which [employer] nerated this result transmit jn reference range: 0 - 5 HP F. The reference range was not used to interpret th is result as normal/abnormal . BACTERIA (test code = Negative Negative 9229019226) MUCOUS (test code = 1561451852) Moderate Negative LPF A SQ EPITH (test code = HPF 6395434297) Lab Interpretation (test code = Abnormal 17548-3) [facility]
[2021-10-24 10:20] LABS: Urine Blood Trace-intact (Negative); Urine Glucose Negative (Negative); Urine Protein Negative (Negative); Urine Specific Gravity 1.025 (1.005-1.030); Urine pH 6.5 (5.0-7.0)
--- NOTE | 2021-10-24 10:24 | ER ---
Nurse's Notes [facility] Name: Alison Morelos Age: 36 yrs Sex: Female : 1985 Arrival Date: 10/24/2021 Time: 09:46 Bed 9 Private MD: Diagnosis: Cutaneous abscess of right lower limb;UTI/ Urinary tract infection, site not specified Presentation: 10/24 10:06 Chief complaint: Patient states: pain with urination x1 week. ant bite with reddness eisenberg middle of right calf x1 week. Coronavirus screen: Vaccine status: Patient reports being unvaccinated. Ebola Screen: Patient denies travel to an Ebola-affected area in the 21 days before illness onset. Initial Sepsis Screen: Does the patient meet any 2 criteria? RR > 20 per min. HR > 90 bpm. Does the patient have a suspected source of infection? No. Patient's initial sepsis screen is negative. Risk Assessment: Do you want to hurt yourself or someone else? Patient reports no desire to harm self or others. Onset of symptoms was October 16, 2021. 10:06 Method Of Arrival: Ambulatory eisenberg 10:06 Acuity: TRACI 3 eisenberg Triage Assessment: 10:10 General: Appears in no apparent distress. Behavior is calm, cooperative. Pain: eisenberg Complains of pain in abdomen and pelvis. 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 - Social history:: Smoking status: Patient reports the use of cigarette tobacco products, smokes one-half pack cigarettes per day. Screenin:11 Abuse screen: Denies threats or abuse. Denies injuries from another. Nutritional eisenberg screening: No deficits noted. Tuberculosis screening: No symptoms or risk factors identified. Fall Risk None identified. Vital Signs: 10:06 BP 136 / 95; Pulse 100; Resp 20; Temp 97.6(O); Pulse Ox 100% ; Weight 61.23 kg; Height eisenberg 5 ft. 1 in. (154.94 cm); 10:06 Body Mass Index 25.51 (61.23 kg, 154.94 cm) eisenberg ED Course: 09:46 Patient arrived in ED. 10:00 Sebastien Rhoades NP is PHCP. pm1 10:00 Prieto Damon MD is Attending Physician. pm1 10:04 PHCP role handed off by Sebastien Rhoades NP kb 10:04 Patricia Bass FNP-C is PHCP. kb 10:10 Triage completed. eisenberg 10:10 Arm band placed on. eisenberg 10:11 Patient has correct armband on for positive identification. eisenberg 10:11 No provider procedures requiring assistance completed. eisenberg 10:25 Urine Microscopic Only Sent. eisenberg 10:31 Patient did not have IV access during this emergency room visit. eisenberg Administered Medications: No medications were administered Outcome: 10:23 Discharge ordered by . kb 10:31 Discharged to home eisenberg 10: Condition: good 10: Discharge instructions given to Prescriptions given X 1. 10:31 Patient left the ED. eisenberg Addendum: 10/27/2021 07:13 Addendum: Culture Results: Positive urine culture. No further action required. Bacteria e b sensitive to prescribed antibiotic. Signatures: Patricia Bass FNP-C FNP-Nikki Leal mr Sebastien Rhoades NP PHARMACY PICKING TECHNICIAN pm1 Dori Yao Heather, RN RN eisenberg
--- NOTE | 2021-10-24 10:24 | EDPHYS ---
Physician Documentation [facility] Name: Alison Morelos Age: 36 yrs Sex: Female : 1985 Arrival Date: 10/24/2021 Time: 09:46 Bed 9 Private MD: ED Physician Prieto Damon HPI: 10/24 10:27 This 36 yrs old Female presents to ER via Ambulatory with complaints of Urinary kb Problem, Abscess. 10:27 The patient presents with urinary symptoms, dysuria. Onset: The symptoms/episode kb began/occurred 1 month(s) ago. Modifying factors: The symptoms are alleviated by nothing, the symptoms are aggravated by nothing. Associated signs and symptoms: Pertinent positives: dysuria, urinary frequency, Pertinent negatives: fever. Severity of symptoms: At their worst the symptoms were mild, in the emergency department the symptoms are unchanged. The patient has not experienced similar symptoms in the past. The patient has not recently seen a physician. Pain with urination for a month. Also reports she had an ant bite that got infected. States she popped it and got purulent drainage out of it, but it is red and hard around the bite.. 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 - Social history:: Smoking status: Patient reports the use of cigarette tobacco products, smokes one-half pack cigarettes per day. ROS: 10:26 Constitutional: Negative for fever, chills, and weight loss. kb 10:26 : Positive for urinary symptoms, burning with urination. 10:26 Skin: Positive for abscess, of the medial aspect of right calf. 10:26 All other systems are negative. Exam: 10:26 Constitutional: This is a well developed, well nourished patient who is awake, alert, kb and in no acute distress. Head/Face: Normocephalic, atraumatic. ENT: Moist Mucous membranes Respiratory: Respirations even and unlabored. No increased work of breathing. Talking in full sentences Abdomen/GI: Soft, non-tender. No distention MS/ Extremity: Pulses equal, no cyanosis. Neurovascular intact. Full, normal range of motion. Neuro: Awake and alert, GCS 15, oriented to person, place, time, and situation. Moves all extremities. Normal gait. Psych: Awake, alert, with orientation to person, place and time. Behavior, mood, and affect are within normal limits. 10:26 Skin: abscess, that is small, of the medial aspect of right calf, with induration. Vital Signs: 10:06 BP 136 / 95; Pulse 100; Resp 20; Temp 97.6(O); Pulse Ox 100% ; Weight 61.23 kg; Height eisenberg 5 ft. 1 in. (154.94 cm); 10:06 Body Mass Index 25.51 (61.23 kg, 154.94 cm) eisenberg MDM: 10:04 Patient medically screened. pm1 10:26 Data reviewed: vital signs, nurses notes. Data interpreted: Pulse oximetry: on room air kb is 100 %. Interpretation: normal. Counseling: I had a detailed discussion with the patient and/or guardian regarding: the historical points, exam findings, and any diagnostic results supporting the discharge/admit diagnosis, lab results, the need for outpatient follow up, a family practitioner, to return to the emergency department if symptoms worsen or persist or if there are any questions or concerns that arise at home. 10/24 10:05 Order name: Urine Microscopic Only kb 10/24 10:19 Order name: Urine Dipstick-Ancillary; Complete Time: 10:22 EDMS 10/24 10:05 Order name: Urine Dipstick-Ancillary (obtain specimen); Complete Time: 10:21 kb 10/24 10:05 Order name: Urine Test (obtain specimen); Complete Time: 10:21 kb 10/24 10:21 Order name: Test Urine - POC 5 Administered Medications: No medications were administered Disposition: 15:36 Co-signature as Attending Physician, Prieto Damon MD I agree with the assessment and rn plan of care. Attestation: The patient's history, exam findings, diagnostics, and a summary of any interventions or procedures was reviewed in detail with Patricia CRESPO. Disposition Summary: 10/24/21 10:23 Discharge Ordered Location: Home kb Condition: Stable kb Diagnosis - Cutaneous abscess of right lower limb kb - UTI/ Urinary tract infection, site not specified kb Followup: kb - With: Emergency Department - When: As needed - Reason: Worsening of condition Followup: kb - With: Private Physician - When: 2 - 3 days - Reason: Recheck today's complaints, Continuance of care, Re-evaluation by your physician Discharge Instructions: - Discharge Summary Sheet kb - Skin Abscess, [id number] kb - Urinary Tract Infection, Adult, [id number] kb Forms: - Medication Reconciliation Form kb - Thank You Letter kb - Antibiotic Education kb - Prescription Opioid Use kb Prescriptions: - sulfamethoxazole-trimethoprim 200-40 mg/5 mL Oral Suspension - take 20 milliliter by ORAL route every 12 hours for 10 days; 400 milliliter; kb Refills: 0, Product Selection Permitted Signatures: Dispatcher [employer] EDMS Patricia Bass, MICROSOFT OFFICE INSTRUCTOR-C [employer]FT OFFICE INSTRUCTOR-Prieto Saez MD MD rn Marinas, Patrick, LIZA DYNAMIC ETCHING PROCESSOR pm1 Anne-Marie Terrell RN RN eisenberg
[2021-10-24 10:40] LABS: Urine Bacteria LOADED /HPF (<20); Urine RBC 20-50 /HPF (NONE SEEN)
[2021-10-24 10:48] VITALS: BP 136/95; TEMP 97.6; O2SAT 100
[2021-10-24 14:11] LABS: Urine Specific Gravity/Preg 1.025 (1.005-1.030)
== END 2021-10-24 10:31 | disposition home or self-care (01) ==
LOC: ER 09:42
DX: N39.0 Urinary tract infection, site not specified (principal); L02.415 Cutaneous abscess of right lower limb; F17.210 Nicotine dependence, cigarettes, uncomplicated
CPT/HCPCS: 81003; 81015; 81025; 87077; 87086; 87088; 87186; 99283

== ENCOUNTER 2021-11-09 02:48 | Inpatient (IN) | payer SELFPAY ==
--- OUTSIDE RECORDS SUMMARY | 2021-11-09 02:52 | XMS REPORT | Continuity of Care Document ---
:1985 Author Organization Formerly [facility] t Address [address] [place] [address] Care Team Providers Name Role Phone PCP, DOES NOT HAVE A Primary Care Physician Unavailable Christiana EUBANKS Attending Clinician Unavailable Christiana Eubanks MD Attending Clinician Doctor Unassigned, Name Attending Clinician Unavailable Tutu Ramirez Attending Clinician TUTU MCGILL Attending Clinician Unavailable Lyssa Shepard APN Attending Clinician Lyssa SHEPARD Attending Clinician Unavailable Adin ARZATE O Attending Clinician Payers Payer Name Policy Type Policy Number Effective Date Expiration Date S jaja MEDICAID PENDING PENDING 2021 00:00:00 Problems Condition Condition Condition Status Onset Resolution Last Treating Co mments Source Name Details Category Date Date Treatment Clinician Date Acute Acute Disease Active 2016-10 Univers osteomyeli osteomyeli 0-22 it y of t[place] [facility] Allergies, Adverse Reactions, Alerts Allergy Allergy Status Severity Reaction(s) Onset Inactive Treating Comm ents Source Name Type Date Date Clinician NO KNOWN Drug Active Univers ALLERGIE Class ity of S [facility] NO KNOWN Allergy Active [facility] Social History Social Habit Start Date Stop Date Quantity Comments Source Exposure to Not sure [facility] SARS-CoV-2 (event) Medica l Branch Sex Assigned At [birth year] [facility] [place] 00:00:00 00:00:00 Medical Branch Smoking Status Start Date Stop Date Source Unknown if ever smoked [facility] Medications Ordered Filled Start Stop Current Ordering Indication Dosage Frequency Signature Comments Components Source Medication Medication Date Date Medication? Clinician (SIG) Name Name sulfamethox Yes [id number] 1{tbl} Take 1 Univers azole-trime 1-17 tablet by ity of thoprim 00:00: mouth [place] 800-160 mg 00 every 12 Medic al per tablet (twelve) Branc h hours. ibuprofen Yes [id number] 800mg Take 1 Univers 800 mg 1-17 [id number] tablet by ity of tablet 00:00: mouth [place] 00 every 8 Medical (eight) Branch hours as needed for Pain (scale 4-6) or Temp > 38.5 C. cephALEXin Yes [id number] 500mg Take 1 Univers (KEFLEX) 1-17 capsule by ity o f 500 mg 00:00: mouth 4 [place] capsule 00 (four) Medical times Branch daily. cephALEXin 2020- No 500mg 500 mg, Un jareth (KEFLEX) 7-17 07-17 Oral, ity of capsule 500 01:30: 00:31 ONCE, 1 [place] mg 00 :00 dose, Fri Medical 05/04/21 at Branch 2030, PRIMITIVO
Re ason for Anti-Infec tive: Documented Infection< br>Documen jn Infection Site: Skin / Soft Tissue
Duration of Therapy: 10 days ibuprofen Yes [id number] 600mg Take 1 U nivers 600 mg 7-16 tablet by ity of tablet 00:00: mouth [place] 00 every 6 Medical (six) Branch hours as needed for Pain (scale 4-6). ibuprofen Yes [id number] 600mg Take 1 U nivers 600 mg 7-16 tablet by ity of tablet 00:00: mouth [place] 00 every 6 Medical (six) Branch hours as needed for Pain (scale 4-6). ibuprofen Yes [id number] 600mg Take 1 U nivers 600 mg 7-16 tablet by ity of tablet 00:00: mouth [place] 00 every 6 Medical (six) Branch hours as needed for Pain (scale 4-6). cephALEXin 2020- No [id number] 500mg Take 1 Univers (KEFLEX) 05-04- capsule by ity of 500 mg 00:00: 04:59 mouth 3 [place] capsule 00 :00 (three) Medical times Branch daily for 10 days. clindamycin 2019-0 Yes 450mg 450 mg, Un jareth (CLEOCIN [...] n use: cellulitis clindamycin 2019- 2020- No [id number] 450mg Take 3 Univers 150 mg 05-01-24 capsules ity of capsule 00:00: 04:59 by mouth 3 [place] as 00 :00 (three) Medical times Branch daily for 10 days. sulfamethox 2020-0 Yes [id number] 2{tbl} Take 2 Univers azole-trime 2-15 tablets by it y of thoprim 00:00: mouth [place] 800-160 mg 00 every 12 Medic al per tablet (twelve) Branc h hours. hydrocortis 2020-0 Yes [id number] Apply to Univers one 2.5 % 2-15 affected ity of cream 00:00: area(s) 2 [place] [address] (two) Medical times Branch daily. methylPREDN 2020-0 Yes [id number] Take by Univers ISolone 4 2-15 mouth ity of mg tablets 00:00: [place]-INSTRU [place] 00 CTIONS. Medical follow Branch package directions sulfamethox 2020-0 Yes [id number] 2{tbl} Take 2 Univers azole-trime 2-15 tablets by it y of thoprim 00:00: mouth [place] 800-160 mg 00 every 12 Medic al per tablet (twelve) Branc h hours. hydrocortis 2020-0 Yes [id number] Apply to Univers one 2.5 % 2-15 affected ity of cream 00:00: area(s) 2 [place] [address] (two) Medical times Branch daily. methylPREDN 2020-0 Yes [id number] Take by Univers ISolone 4 2-15 mouth ity of mg tablets 00:00: [place]INSTRU [place] 00 CTIONS. Medical follow Branch package directions sulfamethox 2020-0 Yes [id number] 2{tbl} Take 2 Univers azole-trime 2-15 tablets by it y of thoprim 00:00: mouth [place] 800-160 mg 00 every 12 Medic al per tablet (twelve) Branc h hours. hydrocortis 2020-0 Yes [id number] Apply to Univers one 2.5 % 2-15 affected ity of cream 00:00: area(s) 2 [place] (two) Medical times Branch daily. methylPREDN 2020-0 Yes [id number] Take by Univers ISolone 4 2-15 mouth ity of mg tablets 00:00: [place]INSTRU [place] 00 CTIONS. Medical follow Branch package directions sulfamethox 2020-0 Yes [id number] 2{tbl} Take 2 Univers azole-trime 2-15 tablets by it y of thoprim 00:00: mouth [place] 800-160 mg 00 every 12 Medic al per tablet (twelve) Branc h hours. hydrocortis 2020-0 Yes [id number] Apply to Univers one 2.5 % 2-15 affected ity of cream 00:00: area(s) 2 [place] (two) Medical times Branch daily. methylPREDN 2020-0 Yes [id number] Take by Univers ISolone 4 2-15 mouth ity of mg tablets 00:00: [place]-INSTRU [place] 00 CTIONS. Medical follow Branch package directions sulfamethox 2020-0 Yes [id number] 2{tbl} Take 2 Univers azole-trime 2-15 tablets by it y of thoprim 00:00: mouth [place] 800-160 mg 00 every 12 Medic al per tablet (twelve) Branc h hours. hydrocortis 2020-0 Yes [id number] Apply to Univers one 2.5 % 2-15 affected ity of cream 00:00: area(s) 2 [place] [address] (two) Medical times Branch daily. methylPREDN 2020-0 Yes [id number] Take by Univers ISolone 4 2-15 mouth ity of mg tablets 00:00: [place]-INSTRU [place] 00 CTIONS. Medical follow Branch package directions cephALEXin 2020-0 2020- No [id number] 500mg Take 1 Univers 500 mg 12-04 capsule by ity of capsule 00:00: 05:59 [...] as needed for Pain (scale 4-6). cephALEXin 2016-10 Yes 500mg Take 1 Univ ers (KEFLEX) 0-22 capsule by ity o f 500 mg 00:00: mouth 4 [place] capsule 00 (four) Medical times Branch daily. traMADOL 2016-10 Yes 50mg Take 1 Univers (ULTRAM) 50 0-22 tablet by ity of mg tablet 00:00: mouth [place] 00 every 6 Medical (six) Branch hours as needed for Pain (scale 7-10). cephALEXin 2017- Yes 500mg Take 1 Univ ers (KEFLEX) 0-22 capsule by ity o f 500 mg 00:00: mouth 4 [place] capsule 00 (four) Medical times Branch daily. traMADOL 2016- Yes 50mg Take 1 Univers (ULTRAM) 50 0-22 tablet by ity of mg tablet 00:00: mouth [place] 00 every 6 Medical (six) Branch hours as needed for Pain (scale 7-10). cephALEXin 2016- Yes 500mg Take 1 Univ ers (KEFLEX) 0-22 capsule by ity o f 500 mg 00:00: mouth 4 [place] capsule 00 (four) Medical times Branch daily. traMADOL 2016-10 Yes 50mg Take 1 Univers (ULTRAM) 50 0-22 tablet by ity of mg tablet 00:00: mouth [place] 00 every 6 Medical (six) Branch hours as needed for Pain (scale 7-10). cephALEXin 2016- Yes 500mg Take 1 Univ [...] as needed for Pain (scale 7-10). traMADOL 2016-10 Yes 50mg Take 1 Univers [...] as needed for Pain (scale 4-6). traMADOL 2016-1 Yes 50mg Take 1 Univers (ULTRAM) 50 0-11 tablet by ity of mg tablet 00:00: mouth [place] 00 every 6 Medical (six) Branch hours as needed for Pain (scale 4-6). traMADOL 2016-1 Yes 50mg Take 1 Univers (ULTRAM) 50 0-11 tablet by ity of mg tablet 00:00: mouth [place] 00 every 6 Medical (six) Branch hours as needed for Pain (scale 4-6). traMADOL 2017-1 Yes 50mg Take 1 Univers (ULTRAM) 50 0-11 tablet by ity of mg tablet 00:00: mouth [place] 00 every 6 Medical (six) Branch hours as needed for Pain (scale 4-6). metroNIDAZO 2017-0 Yes 500mg Take 1 Uni vers LE 500 mg 3-19 tablet by ity o f tablet 00:00: mouth 2 [place] 00 (two) Medical times Branch daily. proMETHazin 2017-0 Yes 25mg Take 1 Univ ers e 25 mg 3-19 tablet by ity of tablet 00:00: mouth [place] 00 every 6 Medical (six) Branch hours as needed for Nausea and Vomiting (N/V). metroNIDAZO 2017-0 Yes 500mg Take 1 Uni vers LE 500 mg 3-19 tablet by ity o f tablet 00:00: mouth 2 [place] 00 (two) Medical times Branch daily. proMETHazin 2017-0 Yes 25mg Take 1 Univ ers e 25 mg 3-19 tablet by ity of tablet 00:00: mouth [place] 00 every 6 Medical (six) Branch hours as needed for Nausea and Vomiting (N/V). metroNIDAZO 2017-0 Yes 500mg Take 1 Uni vers LE 500 mg 3-19 tablet by ity o f tablet 00:00: mouth 2 [place] 00 (two) Medical times Branch daily. proMETHazin 2017-0 Yes 25mg Take 1 Univ ers e 25 mg 3-19 tablet by ity of tablet 00:00: mouth [place] 00 every 6 Medical (six) Branch hours as needed for Nausea and Vomiting (N/V). metroNIDAZO 2017-0 Yes 500mg Take 1 Uni vers LE 500 mg 3-19 tablet by ity o f tablet 00:00: mouth 2 [place] 00 (two) Medical times Branch daily. proMETHazin 2017-0 Yes 25mg Take 1 Univ ers e 25 mg 3-19 tablet by ity of tablet 00:00: mouth [place] 00 every 6 Medical (six) Branch hours as needed for Nausea and Vomiting (N/V). metroNIDAZO 2017-0 Yes 500mg Take 1 Uni vers LE 500 mg 3-19 tablet by ity o f tablet 00:00: mouth 2 [place] 00 (two) Medical times Branch daily. proMETHazin 2017-0 Yes 25mg Take 1 Univ ers e 25 mg 3-19 tablet by ity of tablet 00:00: mouth [place] 00 every 6 Medical (six) Branch hours as needed for Nausea and Vomiting (N/V). Vital Signs Vital Name Observation Time Observation Value Comments Source Systolic blood 2021-11-05 08:53:00 118 mm[Hg] Univer sity of pressure [facility] Branch Diastolic blood 2021-11-05 08:53:00 75 mm[Hg] Unive rsity of [facility] Heart rate 2021-11-05 08:53:00 92 /min Universi ty of [facility] Oxygen saturation in 2021-11-05 08:53:00 100 /min University of Arterial blood by [facility] Pulse oximetry Branch Body temperature 2021-11-05 07:28:00 36.67 Precious [facility] Respiratory rate 2021-11-05 07:28:00 20 /min Univ ersity of [facility] Body weight 2021-11-05 07:28:00 56.7 kg Universi ty of [facility] BMI 2021-11-05 07:28:00 23.62 kg/m2 Universi ty of [facility] Branch Systolic blood 2021-05-05 00:00:00 135 mm[Hg] Univer sity of [facility] Diastolic blood 2021-05-05 00:00:00 91 mm[Hg] Unive rsity of [facility] Heart rate 2021-05-05 00:00:00 111 /min Universi ty of [place] [facility] Body temperature 2021-05-05 00:00:00 36.78 Precious Univ ersity [facility] Branch Respiratory rate 2021-05-05 00:00:00 16 /min Univ ersity of [facility] Body weight 2021-05-05 00:00:00 56.7 kg Universi ty of [place] [facility] BMI 2021-05-05 00:00:00 23.62 kg/m2 Universi ty of [facility] Branch Oxygen saturation in 2021-05-05 00:00:00 99 /min University of Arterial blood by [facility] Pulse oximetry Branch HEIGHT 2020-06-12 00:00:00 154.9 cm WEIGHT 2020-06-12 00:00:00 58.968 kg Systolic blood 2020-05-01 04:16:00 128 mm[Hg] Univer sity of [facility] Branch Diastolic blood 2020-05-01 04:16:00 95 mm[Hg] Unive rsity of pressure [place] [facility] Heart rate 2020-05-01 04:16:00 95 /min Universi ty of [place] [facility] Body temperature 2020-05-01 04:16:00 36.94 Precious Univ ersity of [place] [facility] Respiratory rate 2020-05-01 04:16:00 16 /min Univ ersity of [place] [facility] Body weight 2020-05-01 04:16:00 58.999 kg Universi ty of [place] [facility] BMI 2020-05-01 04:16:00 24.58 kg/m2 Universi ty of [place] [facility] Oxygen saturation in 2020-05-01 04:16:00 97 /min University of Arterial blood by [facility] Pulse oximetry Branch Systolic blood 2020-05-01 04:16:00 128 mm[Hg] Univer sity of pressure [place] [facility] Diastolic blood 2020-05-01 04:16:00 95 mm[Hg] Unive rsity of pressure [place] [facility] Heart rate 2020-05-01 04:16:00 95 /min Universi ty of [place] [facility] Body temperature 2020-05-01 04:16:00 36.94 Precious Univ ersity of [place] [facility] Respiratory rate 2020-05-01 04:16:00 16 /min Univ ersity of [place] [facility] Body weight 2020-05-01 04:16:00 58.999 kg Universi ty of [place] [facility] BMI 2020-05-01 04:16:00 24.58 kg/m2 Universi ty of [place] [facility] Oxygen saturation in 2020-05-01 04:16:00 97 /min University of Arterial blood by [facility] Pulse oximetry Branch Systolic blood 2019-12-04 21:54:00 131 mm[Hg] Univer sity of pressure [place] [facility] Diastolic blood 2019-12-04 21:54:00 89 mm[Hg] Unive rsity of pressure [place] [facility] Heart rate 2019-12-04 21:54:00 96 /min Universi ty of [place] [facility] Body temperature 2019-12-04 21:54:00 36.78 Precious Univ ersity of [place] [facility] Respiratory rate 2019-12-04 21:54:00 18 /min Univ ersity of [place] [facility] Oxygen saturation in 2019-12-04 21:54:00 100 /min University of Arterial blood by [place] [facility] Pulse oximetry Branch Body weight 2019-12-04 19:44:00 68.04 kg Universi ty [facility] [facility] [place] BMI 2019-12-04 19:44:00 28.34 kg/m2 Universi ty [facility] Systolic blood 2019-12-04 21:54:00 131 mm[Hg] Univer sity of pressure [facility] Diastolic blood 2019-12-04 21:54:00 89 mm[Hg] Unive rsity of pressure [facility] Heart rate 2019-12-04 21:54:00 96 /min Universi ty [facility] Body temperature 2019-12-04 21:54:00 36.78 Precious Univ ersity of [facility] Respiratory rate 2019-12-04 21:54:00 18 /min [facility] O[facility] saturation in 2019-12-04 21:54:00 100 /min [facility] Arterial blood by [facility] Pulse oximetry [place] Body weight 2019-12-04 19:44:00 68.04 kg Universi ty [facility] BMI 2019-12-04 19:44:00 28.34 kg/m2 [facility] Procedures Procedure Date / Time Performed Performing Clinician Sour e URINALYSIS 2021-11-05 07:58:00 Jimbo Eubanks [facility] POCT TEST 2021-11-05 07:58:00 Jimbo Eubanks [facility] CONSENT/REFUSAL FOR 2021-11-05 07:20:05 Doctor Unassigned, No Un iversity of [place] DIAGNOSIS AND Name Medical Branch TREATMENT URINALYSIS 2021-05-05 00:28:00 Kehinde Mcgill Tutu [place] o f [facility] NOTICE OF PRIVACY 2021-05-04 23:51:32 Doctor Unassigned, No Univ ersity of [place] PRACTICES Name [facility] Branch CONSENT/REFUSAL FOR 2021-05-04 23:51:08 Doctor Unassigned, No Un [facility] [place] DIAGNOSIS AND Name Medical Branch TREATMENT Encounters Start End Encounter Admission Attending Care Care Encounter Source Date/Time Date/Time Type Type Clinicians Facility Department ID 2021-11-05 2021-11-05 Emergency X BREE EUBANKS ERT [id number] Univers 01:32[facility]00 [facility]59[facility]-05 2021-11-05 Emergency [facility] [id number] Univers 01:32:00 02:59:00 Jimbo MARTINEZ [id number] ity of [facility] [place] [id number] [place] [address] [place] 2021-11-05 2021-11-05 Orders Doctor MARLON [id number] Univers 00:00:00 00:00:00 Only Unassigned, JUNIOR [id number] ity of [place] [facility] 4.2.7.2.686 [place] [id number] [facility] 009 Branch 2021-05-04 2021-05-04 Emergency [place] Kehinde [facility] [id number] Univers 18:58:00 20:28:00 Tutu Martinez 350.1.13.10 i ty of [place] 4[place]7.2.686 [place] [facility] [id number] [place] [address] Branch 2021-05-04 2021-05-04 Emergency X Kehinde MCGILL [facility] ERT [id number] Univers 18:58:00 20:28:00 ity of [facility] 2020-06-12 2020-06-12 Emergency ER [facility] Emergency [id number] [facility] 17:39:00 17:39:00 2020-04-30 2020-05-01 Emergency Shepard, TRAUMA [id number] Univers 23:17:08 00:49:00 Sandhya FREEMAN [id number] [place] [id number] [facility] 014 Branch 2020-04-30 2020-05-01 Emergency Shepard, TRAUMA [id number] 23:17:08 00:49:00 Sandhya FREEMAN 350.1.13.10 4.2.7.2.686 [id number] 2020-04-30 2020-04-30 Emergency X DEVYN, [facility] ERT [id number] Univers 23:17:08 23:17:08 SANDHYA ity of [facility] 2020-03-21 2020-03-21 Emergency X [facility] ERT [id number] Univers 11:28:00 11:28:00 ity of [facility] 2019-12-04 2019-12-04 Emergency Morrical, TRAUMA [id number] Univers 13:46:09 17:21:00 [facility] [id number] [place] [id number] [address] 2019-12-04 2019-12-04 Emergency Morrical, TRAUMA [id number] 13:46:09 17:21:00 [facility] [id number] 4.2.7.2.686 [id number] Results Test Description Test Time Test Comments Results Result Comments Source POCT TEST 2021-11-05 07:58:00 Test Item Value Reference Range Interpretation Comme nts POCT PREG (test code = 1605) negative On board controls acceptable with C Line (test code = 3574) present POCT PREG LOT # (test code = 3575) [id number] POCT PREG TEST DATE (test code = 3576) 2022-12-17 Lab Interpretation (test code = 16100-8) [facility] Test Item Value Reference Range Interpretation Comments APPEARANCE (test code = Clear Clear 8076734065) COLOR (test code = Ashley Yellow A 6406261192) PH (test code = 4.8-8.0 1751134474) SP GRAVITY (test code = 1.003-1.030 3855574722) GLU U QUAL (test code = Normal Normal 7896409396) BLOOD (test code = Negative Negative 5008380206) KETONES (test code = 5 mg/dL Negative A 4715441770) PROTEIN (test code = Negative Negative 2887-8) UROBILIN (test code = Normal Normal 1888790440) BILIRUBIN (test code = Negative Negative 1515613468) NITRITE (test code = Negative Negative 1996114031) LEUK CRUZ (test code = Negative Negative 1234307615) RBC/HPF (test code = See_Comment [Autom ated message] 5049872799) The system whic h generated this result transmitted ref erence range: 0 - 3 HP F. The reference range was not used to int erpret this result as normal/abnormal . WBC/HPF (test code = See_Comment [Autom ated message] 0083842903) The system Muse generated this result transmitted ref erence range: 0 - 5 HP F. The reference range was not used to int erpret this result as normal/abnormal . BACTERIA (test code = Negative Negative 9921794542) MUCOUS (test code = Moderate Negative LPF A 3375433897) SQ EPITH (test code = HPF 6837386000) Lab Interpretation (test Abnormal code = 79651-8) [facility]
[2021-11-09 03:35] LABS: Urine Blood Negative (Negative); Urine Glucose Negative (Negative); Urine Protein Negative (Negative); Urine Specific Gravity >=1.030 (1.005-1.030)
[2021-11-09 03:44] LABS: Urine Specific Gravity/Preg >1.030 (1.005-1.030)
[2021-11-09 03:55] LABS: Barbiturates NEGATIVE (NEGATIVE); Benzodiazepines NEGATIVE (NEGATIVE); Cocaine NEGATIVE (NEGATIVE); METHAMPHETAM POSITIVE (NEGATIVE); Methadone NEGATIVE (NEGATIVE); Opiates NEGATIVE (NEGATIVE); Phencyclidine NEGATIVE (NEGATIVE); THC Cannibis NEGATIVE (NEGATIVE)
[2021-11-09 04:02] LABS: Absolute Lymphocytes (CBC) 1.7 K/uL (0.7-4.9); Hematocrit 39.6 % (36.0-45.0); Lymphocytes % 21.3 % (15.3-44.8); MPV 8.2 fL (7.6-11.3); RBC Red Blood Cell Count 4.43 M/uL (3.86-4.86)
[2021-11-09] MEDS ORDERED: VANCOMYCIN 1 GM/VIAL ONE (04:02)
[2021-11-09] MEDS ORDERED: CEFEPIME 1 GM/VIAL ONE (04:02)
[2021-11-09] MEDS ORDERED: NA CHLORIDE 0.9% 250 ML ONE (04:02)
[2021-11-09] MEDS ORDERED: NA CHLORIDE 0.9% 1,000 ML ONE (04:03)
[2021-11-09] MEDS ORDERED: NA CHLORIDE 0.9% 100 ML ONE (04:04)
[2021-11-09 04:08] LABS: Protime INR 0.93
--- NOTE | 2021-11-09 04:08 | ER ---
Nurse's Notes [facility] Name: Alison Morelos Age: 36 yrs Sex: Female : 1985 Arrival Date: 11/09/2021 Time: 02:50 Bed 25 Private MD: Diagnosis: Cellulitis of right lower limb-Failed outpatient treatment, IV drug use Presentation: 11/09 02:57 Chief complaint:. Chief complaint: Patient states: pt thinks she is getting a boil on as6 her right inner thigh, pt was seen in the [place] ER the and was diagnosed with an abscess and was sent home with antibiotics. Coronavirus screen: At this time, the client does not indicate any symptoms associated with coronavirus-19. Ebola Screen: No symptoms or risks identified at this time. Initial Sepsis Screen: Does the patient meet any 2 criteria? HR > 90 bpm. No. Patient's initial sepsis screen is negative. Does the patient have a suspected source of infection? Yes: Skin breakdown/wound. Risk Assessment: Do you want to hurt yourself or someone else? Patient reports no desire to harm self or others. Onset of symptoms was November 02, 2021. 02:57 Method Of Arrival: Ambulatory as6 02:57 Acuity: TRACI 4 as6 Triage Assessment: 03:24 General: Behavior is calm, cooperative. 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 - Social history:: Smoking status: Patient reports the use of cigarette tobacco products, smokes one-half pack cigarettes per day. Screenin:24 Abuse screen: Denies threats or abuse. Nutritional screening: No deficits noted. st1 Tuberculosis screening: No symptoms or risk factors identified. Fall Risk None identified. No fall in past 12 months (0 pts). No secondary diagnosis (0 pts). IV access (20 points). Ambulatory Aid- None/Bed Rest/Nurse Assist (0 pts). Gait- Normal/Bed Rest/Wheelchair (0 pts) Mental Status- Oriented to own ability (0 pts). 03:24 Fall Risk Total Ortiz Fall Scale indicates No Risk (0-24 pts). st1 Assessment: 03:22 General: Appears in no apparent distress. uncomfortable, . Pain: Complains of pain in st1 right inner thigh Pain does not radiate. Pain currently is 10 out of 10 on a pain scale. at worst was 10 out of 10 on a pain scale. level that patient reports is acceptable is 2 out of 10 on a pain scale. Derm: Reports she has a history of abscess. Vital Signs: 02:57 BP 141 / 89; Pulse 108; Resp 18 S; Temp 98.0(TE); Pulse Ox 100% on R/A; Weight 61.23 kg as6 (R); Height 5 ft. 1 in. (154.94 cm) (R); Pain 6/10; 03:11 BP 109 / 67; Pulse 99; Resp 16; Pulse Ox 100% on R/A; st1 03:45 BP 132 / 74; Pulse 98; Resp 16; Temp 98.0; Pulse Ox 100% on R/A; st1 04:48 BP 126 / 87; Pulse 98; Resp 16; Pulse Ox 100% on R/A; st1 05:37 BP 117 / 76; Pulse 87; Resp 16; Pulse Ox 100% on R/A; st1 02:57 Body Mass Index 25.51 (61.23 kg, 154.94 cm) as6 ED Course: 02:50 Patient arrived in ED. wm 03:02 Triage completed. as6 03:05 Arm band placed on. as6 03:08 Tyrese Eaton MD is Attending Physician. 7 03:08 Lore Harris, NELSON is Primary Nurse. st1 03:25 Patient has correct armband on for positive identification. Fall risk band placed. st1 Placed in gown. Bed in low position. Call light in reach. Side rails up X 1. Door closed. Warm blanket given. Verbal reassurance given. Head of bed elevated. 03:48 UDS Sent. as6 03:55 US Extremity Venous Unilateral Ltd Sent. st1 03:56 the patient is a heavy meth IV drug user her veins are scarred and difficult to insert st1 IV or butterfly for additional blood cultures. Dr. Eaton notified. 03:56 Inserted saline lock: 20 gauge in left antecubital area, using aseptic technique. st1 Missed attempt(s): 20 gauge in left antecubital area. Bleeding controlled, band aid applied, catheter tip intact. 04:04 US Extremity Venous Unilateral Ltd In Process Unspecified. EDMS 04:06 Yahir Queen DO is Hospitalizing Provider. [facility] 04:20 COVID-19 SARS RT PCR (Document "Date of Onset" if Symptomatic) Sent. st1 04:20 No provider procedures requiring assistance completed. st1 05:36 attempted to call report. Charge nurse states she has not assigned a s nurse to the st1 patient and will have to call back later. 06:05 Patient admitted, IV remains in place. st1 Administered Medications: 04:03 Drug: Cefepime 1 grams Route: IVPB; Rate: 200 ml/hr; Infused Over: 30 mins; Site: left st1 antecubital; 04:04 Drug: NS 0.9% 1000 ml Route: IV; Rate: 1000 ml; Site: left antecubital; st1 04:04 Drug: vancoMYCIN 1 grams Route: IVPB; Infused Over: 2 hrs; Site: left antecubital; st1 Outcome: 04:07 Decision to Hospitalize by Provider. [facility] 06:03 Admitted to Med/surg accompanied by nurse, via wheelchair, room 206, with chart, Report st1 called to NELSON bates 06:04 Condition: stable st1 06:37 Patient left the ED. st1 Signatures: Dispatcher [employer] Tyrese Gibbs MD MD mh7 Atiya Landa Ashby, RN RN as6 Lore Harris RN RN st1 Corrections: (The following items were deleted from the chart) 05:48 03:24 General: Behavior is st1 st1
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
[2021-11-09 04:22] LABS: ALT/SGPT 26 U/L (12-78); AST/SGOT 17 U/L (15-37); Albumin 3.4 g/dL (3.4-5.0); Alkaline Phosphatase 112 U/L (45-117); BUN Blood Urea Nitrogen 11 mg/dL (7-18); Bicarbonate 27 mmol/L (21-32); Bilirubin Direct < 0.1 mg/dL (0-0.2); Bilirubin Total 0.2 mg/dL (0.2-1.0); Glucose Level 95 mg/dL (74-106); Protein, Total 7.9 g/dL (6.4-8.2); Sodium Level 137 mmol/L (136-145)
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
--- NOTE | 2021-11-09 06:07 | P.PN ---
Subjective Date of Service: 11/09/21 Primary Care Provider: None Chief Complaint: RLE cellulitis Subjective: Other (Overall stable. Pain controlled.) Physical Examination - Studies Laboratory Data (last 24 hrs) 11/09/21 03:35: PT 10.7, INR 0.93, APTT 31.6 11/09/21 03:35: Sodium 137, Potassium 4.0, BUN 11, Creatinine 0.82, Glucose 95, Total Bilirubin 0.2, AST 17, ALT 26, Alkaline Phosphatase 112 11/09/21 03:35: WBC 8.20, Hgb 13.2, Hct 39.6, Plt Count 383 Assessment & Plan Discharge Plan: Home Plan to discharge in: 48 Hours Physician Review Additional Text: COVID: negative Venous doppler: Pending Physical Exam: General: Alert, In no apparent distress, Oriented x3 HEENT: Atraumatic, PERRLA, Mucous membr. moist/pink, EOMI, Sclerae nonicteric Neck: Supple, 2+ carotid pulse no bruit, No LAD, Without JVD or thyroid abnormality Respiratory: Clear to auscultation bilaterally, Normal air movement Cardiovascular: Regular rate/rhythm, Normal S1 S2 Gastrointestinal: Normal bowel sounds, No tenderness Musculoskeletal: Erythema, Tenderness, Warmth Integumentary: Erythema, warmth noted to the right medial thigh. Abscess noted. Abscess moderate size. Neurological: Normal speech, Normal strength at 5/5 x4 extr, Normal tone, Normal affect Impression: Right lower extremity cellulitis failed outpatient therapy with abscess present to the medial right thigh Tobacco abuse Amphetamine abuse Plan: Right lower extremity cellulitis failed outpatient therapy with abscess present to the medial right thigh: Patient currently n.p.o. in anticipation for surgical intervention. Will discuss with surgery. Continue IV cefepime and vancomycin. Venous Doppler done. Await final results. Continue with treatment. We will provide medication for pain. Anticipate improvement over the next 48 hours. I will turn the service over to the hospitalist team tomorrow. I will go over the plan of care with him. Tobacco abuse: Patient counseled on need for tobacco cessation, declined NicoDerm patch. Amphetamine abuse: Counseled on need for cessation of amphetamines, patient denies injecting to right leg. Patient plans to quit. DVT PPX: Lovenox Code status: Full code Discharge Plan: Home at discharge Time Spent Managing Pts Care (In Minutes): 55
[2021-11-09] MEDS ORDERED: ACETAMINOPHEN 500 MG TAB PO PRN (06:49)
[2021-11-09] MEDS ORDERED: ONDANSETRON 4 MG/2 ML VIAL IV PRN (06:49)
[2021-11-09] MEDS ORDERED: MORPHINE 2 MG/ML SYR IV PRN (06:49)
[2021-11-09 07:28] VITALS: BMI 25.4
[2021-11-09] MEDS ORDERED: HYDROCODONE/APAP 7.5/325 MG TAB PO PRN (07:36)
[2021-11-09] MEDS ORDERED: TRAMADOL HCL 50 MG TAB PO PRN (07:36)
[2021-11-09] MEDS ORDERED: INFLUENZA VACCINE (for 6+ mo) 0.5 ML DOSE IMVAC ONE (08:00)
--- NOTE | 2021-11-09 08:35 | RAD REPORT ---
EXAM DESCRIPTION: USExtremity Venous Uni Ltd11/09/2021 4:04 am CLINICAL HISTORY: Right leg pain and swelling. COMPARISON: 2016 FINDINGS: Right common femoral, superficial femoral, popliteal and right posterior tibial veins are compressible and demonstrate augmentation. Doppler demonstrates good flow. Grayscale, color and spectral analysis performed on all vessels IMPRESSION: No evidence of deep venous thrombosis involving the right lower extremity.
[2021-11-09] MEDS: NICOTINE 21 MG/PAT TD SCH ×2 (08:51→09:00)
[2021-11-09] MEDS: CEFEPIME 1 GM in NA CHLORIDE 0.9% 100 ML IV SCH ×2 (08:52→20:32)
[2021-11-09] MEDS: NA CHLORIDE 0.9% 1,000 ML IV SCH ×2 (08:55→16:49)
[2021-11-09] MEDS ORDERED: Ringers Lactate 1,000 ML IV ONE (13:24)
[2021-11-09] MEDS ORDERED: LIDOCAINE 1% W/EPI 1:100,000 10 ML VIAL ONE (13:45)
[2021-11-09] MEDS ORDERED: propofoL 200 MG/20 ML VIAL IV ONE (14:28)
[2021-11-09] MEDS ORDERED: LIDOCAINE 1% MPF 5 ML VIAL ONE (14:28)
[2021-11-09] MEDS ORDERED: MIDAZOLAM HCL 2 MG/2 ML INJ ONE (14:28)
[2021-11-09] MEDS ORDERED: FENTANYL CITR 100 MCG/2 ML ONE (14:28)
[2021-11-09] MEDS ORDERED: ONDANSETRON 4 MG/2 ML VIAL ONE (14:31)
[2021-11-09] MEDS ORDERED: SODIUM HYPOCHLORITE 0.25% 473 ML ONE (15:03)
--- NOTE | 2021-11-09 15:05 | P.OP ---
Preoperative diagnosis: RIGHT Medial thigh Abscess Postoperative diagnosis: RIGHT Medial thigh Abscess Primary procedure: Debridement of RIGHT Medial thigh Abscess with necrosis Anesthesia: Gen + Local Estimated blood loss: <1cc Specimen: debridement tissue, cultures Findings: ~3cm round abscess with necrosis into adipose plane Complications: None Transferred to: Recovery Room Condition: Good
[2021-11-09] MEDS ORDERED: KETOROLAC 30 MG/ML INJ ONE (15:06)
[2021-11-09] MEDS: ENOXAPARIN 40 MG/0.4 ML SQ SCH ×2 (17:15→17:21)
[2021-11-09] MEDS: VANCOMYCIN 1 GM in NA CHLORIDE 0.9% 250 ML IVPB SCH (17:16)
--- NOTE | 2021-11-10 01:32 | OP ---
Date of Procedure: 11/09/2021 Surgeon: Ricci Becerra MD, Preoperative Diagnosis: Right medial thigh abscess. Postoperative Diagnosis: Right medial thigh abscess. Procedure Performed: Debridement of right medial thigh abscess with necrosis. Anesthesia: General endotracheal plus local 1% lidocaine with epinephrine. Estimated Blood Loss: 1 cc Specimens: Debridement tissue and cultures sent for aerobic and anaerobic speciation. Findings: Approximately 3 cm round abscess with necrosis and adipose plane. Complications: None. The patient was transferred to recovery room in good condition. Procedure In Detail: After informed consent was obtained, the patient was brought to the operating r oom, prepped and draped in the usual sterile fashion. After adequate anesthesia was achieved, I made a curvilinear incision circumferentially around the area of the medial thigh down through subcutaneo us tissues using a 15 blade. Immediately encountered was abscess material. This was cultured for jennifer th aerobic and anaerobic speciation. I then proceeded to remove an ellipse of skin approximately 3 c m round disk of obviously infected and necrotic skin with abscess. I removed all necrotic tissue wit h a curette down to subcutaneous fat and into the fat plane, abutting up to but not including the mus cular fascia. I then circumferentially dissected this using the same said curette. I then irrigated the area copiously with sterile saline. Electrocautery was used to achieve hemostasis. The wound w as then packed with Dakin soaked gauze and sterile dressing placed over top. The patient tolerated p rocedure well without evidence of complication and transferred to PACU in good condition. All counts were correct at the end of the case. PILY/LIZET Voice ID: [id number] Report ID: [id number]
[2021-11-10] MEDS: NA CHLORIDE 0.9% 1,000 ML IV SCH (02:49)
[2021-11-10] MEDS: VANCOMYCIN 1 GM in NA CHLORIDE 0.9% 250 ML IVPB SCH ×2 (04:00→17:30)
[2021-11-10 06:31] LABS: ALT/SGPT 18 U/L (12-78); AST/SGOT 13 U/L (15-37); Albumin 2.1 g/dL (3.4-5.0); Alkaline Phosphatase 89 U/L (45-117); BUN Blood Urea Nitrogen 9 mg/dL (7-18); Bicarbonate 20 mmol/L (21-32); Bilirubin Total 0.2 mg/dL (0.2-1.0); Glucose Level 89 mg/dL (74-106); Potassium 4.5 mmol/L (3.5-5.1); Protein, Total 5.7 g/dL (6.4-8.2); Sodium Level 138 mmol/L (136-145)
[2021-11-10 08:17] LABS: Absolute Lymphocytes (CBC) 1.9 K/uL (0.7-4.9); Lymphocytes % 36.4 % (15.3-44.8); MPV 8.2 fL (7.6-11.3); RBC Red Blood Cell Count 4.21 M/uL (3.86-4.86)
[2021-11-10] MEDS: NICOTINE 21 MG/PAT TD SCH (09:00)
[2021-11-10] MEDS: CEFEPIME 1 GM in NA CHLORIDE 0.9% 100 ML IV SCH ×2 (09:32→21:15)
--- NOTE | 2021-11-10 09:37 | P.PN ---
Subjective Date of Service: 11/10/21 Primary Care Provider: None Chief Complaint: RLE cellulitis Subjective: No new changes (c/o of hand swelling , low urine outpt today) Physical Examination - Vital Signs Temperature: 97.7 F Blood Pressure: 103/57 Pulse: 77 Respirations: 16 Pulse Ox (%): 99 - Physical Exam General: In no apparent distress Assessment And Plan - Current Problems (Diagnosis) (1) Cellulitis of right lower leg Onset Date: 08/12/16 Current Visit: No Status: Acute (2) Drug abuse, amphetamine type Current Visit: No Status: Acute (3) Tobacco abuse Current Visit: No Status: Chronic Physician Review Additional Text: COVID: negative Venous doppler: Pending Physical Exam: General: Alert, In no apparent distress, Oriented x3 HEENT: Atraumatic, PERRLA, Mucous membr. moist/pink, EOMI, Sclerae nonicteric Neck: Supple, 2+ carotid pulse no bruit, No LAD, Without JVD or thyroid abnormality Respiratory: Clear to auscultation bilaterally, Normal air movement Cardiovascular: Regular rate/rhythm, Normal S1 S2 Gastrointestinal: Normal bowel sounds, No tenderness Musculoskeletal: no pedal edema , noted b/l hand diigts edema Integumentary: dressing over right medal thigh - s/p abscess debridement Neurological: Normal speech, Normal strength at 5/5 x4 extr, Normal tone, Normal affect Impression: Right lower extremity cellulitis failed outpatient therapy with abscess present to the medial right thigh Tobacco abuse Amphetamine abuse Hand edema Plan: Right lower extremity cellulitis failed outpatient therapy with abscess present to the medial right thigh: s/p debridement now -start regular diet -Continue plan of antibiotics with cefepime and vancomycin Status post negative venous Doppler for DVT Follow wound care Follow-up pending culture of aspirate Continue pain regimen Hand edema -be due to IV, with dose Lasix x1 today since reported low urine output Bladder scan to rule out urinary retention Tobacco abuse: Patient counseled on need for tobacco cessation, declined NicoDerm patch. Amphetamine abuse: Counseled on need for cessation of amphetamines, patient denies injecting to right leg. Patient plans to quit. DVT PPX: Lovenox Code status: Full code Discharge Plan: Home at discharge
[2021-11-11] MEDS: VANCOMYCIN 1 GM in NA CHLORIDE 0.9% 250 ML IVPB SCH (04:17)
--- NOTE | 2021-11-11 08:53 | P.PN ---
Subjective Date of Service: 11/11/21 Primary Care Provider: None Chief Complaint: RLE cellulitis Subjective: No new changes, No C/O voiced (Improved pain symptoms now) Physical Examination - Vital Signs Temperature: 97 F Blood Pressure: 109/57 Pulse: 88 Respirations: 17 Pulse Ox (%): 94 Assessment And Plan - Current Problems (Diagnosis) (1) Cellulitis of right lower leg Onset Date: 08/12/16 Current Visit: No Status: Acute (2) Drug abuse, amphetamine type Current Visit: No Status: Acute (3) Tobacco abuse Current Visit: No Status: Chronic Physician Review Additional Text: COVID: negative Venous doppler: Pending Physical Exam: General: Alert, In no apparent distress, Oriented x3 HEENT: Atraumatic, PERRLA, Mucous membr. moist/pink, EOMI, Sclerae nonicteric Neck: Supple, 2+ carotid pulse no bruit, No LAD, Without JVD or thyroid abnormality Respiratory: Clear to auscultation bilaterally, Normal air movement Cardiovascular: Regular rate/rhythm, Normal S1 S2 Gastrointestinal: Normal bowel sounds, No tenderness Musculoskeletal: no pedal edema , noted b/l hand diigts edema Integumentary: dressing over right medal thigh, reduced area of tenderness, s/p abscess debridement Neurological: Normal speech, Normal strength at 5/5 x4 extr, Normal tone, Normal affect Impression: Right lower extremity cellulitis failed outpatient therapy with abscess present to the medial right thigh with MRSA infection Tobacco abuse Amphetamine abuse Hand edema Plan: Right lower extremity cellulitis failed outpatient therapy with abscess present to the medial right thigh: s/p debridement now -Now with MRSA wound infection, will DC cefepime and continue vancomycin We will consult with case management in a.m. about long-term IV antibiotics May need to switch of antibiotics to p.o. if improving wound infection post debridement -Status post negative venous Doppler for DVT Follow wound care Continue pain regimen Hand edema -improved post discontinuation of IVF and Lasix dose yesterday Tobacco abuse: Patient counseled on need for tobacco cessation, declined NicoDerm patch. Amphetamine abuse: Counseled on need for cessation of amphetamines, patient denies injecting to right leg. Patient plans to quit. DVT PPX: Lovenox Code status: Full code Discharge Plan: Home at discharge
[2021-11-11] MEDS: NICOTINE 21 MG/PAT TD SCH (09:00)
[2021-11-11] MEDS ORDERED: VANCOMYCIN 1.25 GM in NA CHLORIDE 0.9% 250 ML IVPB SCH (16:00)
[2021-11-11] MEDS: ENOXAPARIN 40 MG/0.4 ML SQ SCH (18:57)
[2021-11-11 19:32] LABS: Absolute Lymphocytes (CBC) 2.2 K/uL (0.7-4.9); Hematocrit 37.5 % (36.0-45.0); Lymphocytes % 28.2 % (15.3-44.8); MPV 8.4 fL (7.6-11.3); RBC Red Blood Cell Count 4.16 M/uL (3.86-4.86)
[2021-11-11 21:22] LABS: ALT/SGPT 22 U/L (12-78); AST/SGOT 18 U/L (15-37); Albumin 2.3 g/dL (3.4-5.0); BUN Blood Urea Nitrogen 12 mg/dL (7-18); Bicarbonate 24 mmol/L (21-32); Bilirubin Total < 0.1 mg/dL (0.2-1.0); Glucose Level 135 mg/dL (74-106); Potassium 4.1 mmol/L (3.5-5.1); Protein, Total 5.8 g/dL (6.4-8.2); Sodium Level 143 mmol/L (136-145)
[2021-11-11 21:23] LABS: Alkaline Phosphatase 99 U/L (45-117)
[2021-11-12 03:09] LABS: Absolute Lymphocytes (CBC) 2.3 K/uL (0.7-4.9); Lymphocytes % 32.7 % (15.3-44.8); MPV 8.1 fL (7.6-11.3); RBC Red Blood Cell Count 4.13 M/uL (3.86-4.86)
[2021-11-12 03:21] LABS: ALT/SGPT 20 U/L (12-78); AST/SGOT 13 U/L (15-37); Albumin 2.2 g/dL (3.4-5.0); Alkaline Phosphatase 90 U/L (45-117); BUN Blood Urea Nitrogen 11 mg/dL (7-18); Bicarbonate 25 mmol/L (21-32); Bilirubin Total 0.1 mg/dL (0.2-1.0); Glucose Level 100 mg/dL (74-106); Potassium 3.9 mmol/L (3.5-5.1); Protein, Total 5.6 g/dL (6.4-8.2); Sodium Level 141 mmol/L (136-145)
[2021-11-12] MEDS ORDERED: VANCOMYCIN 1.25 GM in NA CHLORIDE 0.9% 250 ML IVPB SCH ×7 (09:00→18:00)
[2021-11-12] MEDS: NICOTINE 21 MG/PAT TD SCH (09:00)
[2021-11-12] MEDS ORDERED: POTASSIUM CL SA 10 MEQ TAB PO ONE (09:00)
[2021-11-12 09:55] VITALS: O2SAT 97
[2021-11-12] MEDS: ENOXAPARIN 40 MG/0.4 ML SQ SCH (16:17)
[2021-11-12 16:56] VITALS: BP 117/65; TEMP 98.1
== END 2021-11-12 18:50 | disposition home or self-care (01) | DRG 581 ==
LOC: ER 02:48 → ERHOLD 05:07 → 2ND 06:40
PROVIDERS: ADMIT Family Medicine; ATTEND Family Medicine
PROC: 0JDL0ZZ Extraction of Right Upper Leg Subcutaneous Tissue and Fascia, Open Approach (ICD-10-PCS; principal; 2021-11-09 14:00)
DX: L03.115 Cellulitis of right lower limb (principal); L02.415 Cutaneous abscess of right lower limb; F15.10 Other stimulant abuse, uncomplicated; B95.62 Methicillin resistant Staphylococcus aureus infection as the cause of diseases classified elsewhere; M79.89 Other specified soft tissue disorders; F17.210 Nicotine dependence, cigarettes, uncomplicated; Z20.822 Contact with and (suspected) exposure to COVID-19
CPT/HCPCS: 36415; 80048; 80053; 80076; 80202; 80307; 80320; 81003; 81025; 83605; 84145; 85025; 85610; 85730; 86140; 87040; 87070; 87075; 87077; 87186; 87205; 88304; 93971; 96374; 96375; 99285; J0692; J1650; J2250; J2405; J2704; J3010; J3370; J7030; J7050; J7120; U0003

== ENCOUNTER 2022-02-15 11:32 | Emergency (ER) | payer SELFPAY ==
--- OUTSIDE RECORDS SUMMARY | 2022-02-15 11:35 | XMS REPORT | Continuity of Care Document ---
:1985 Author Organization [facility] t Address [address] [place] [address] Care Team Providers Name Role Phone PCP, DOES NOT HAVE A Primary Care Physician Unavailable Crhistiana EUBANKS Attending Clinician Unavailable Katheryn ARZATE S Attending Clinician Doctor Unassigned, Name Attending Clinician [...] Name Type Date Date Clinician NO KNOWN Allergy Active [facility] NO KNOWN Drug Active Univers ALLERGIE Class ity of S [facility] Social History Social Habit Start Date Stop Date Quantity Comments Source Exposure to Not sure [facility] SARS-CoV-2 (event) Medica l Branch Sex Assigned At [birth year] [facility] 00:00:00 00:00:00 [facility] Branch Smoking Status Start Date Stop Date Source Unknown if ever smoked [facility] Medications Ordered Filled Start Stop Current Ordering Indication Dosage Frequency Signature Comments Components Source Medication Medication Date Date Medication? Clinician (SIG) Name Name sulfamethox Yes [id number] 1{tbl} Take 1 Univers azole-trime 1-17 tablet by ity of thoprim 00:00: mouth [place] 800-160 mg 00 every 12 Medic al per tablet (twelve) Branc h hours. ibuprofen Yes [id number] 800mg Take 1 Univers 800 mg 1-17 [id number] tablet by ity of tablet 00:00: mouth [place] 00 every 8 Medical (eight) Branch hours as needed for Pain (scale 4-6) or Temp > 38.5 C. cephALEXin Yes [id number] 500mg Take 1 Univers (KEFLEX) 1-17 capsule by ity o f 500 mg 00:00: mouth 4 [place] capsule 00 (four) Medical times Branch daily. cephALEXin No 500mg 500 mg, Un jareth (KEFLEX) 7-17 07-17 Oral, ity of capsule 500 01:30: 00:31 ONCE, 1 [place] mg 00 :00 dose, Fri Medical 05/04/21 at Branch 2030, PRIMITIVO
Re ason for Anti-Infec tive: Documented Infection< br>Documen jn Infection Site: Skin / Soft Tissue
Duration of Therapy: 10 days ibuprofen Yes [id number] 600mg Take 1 U nivers 600 mg 7-16 tablet by ity of tablet 00:00: mouth [place] 00 every 6 Medical (six) Branch hours as needed for Pain (scale 4-6). ibuprofen Yes [id number] 600mg Take 1 U nivers 600 mg 7-16 tablet by ity of tablet 00:00: mouth [place] 00 every 6 Medical (six) Branch hours as needed for Pain (scale 4-6). ibuprofen Yes [id number] 600mg Take 1 U nivers 600 mg 7-16 tablet by ity of tablet 00:00: mouth [place] 00 every 6 Medical (six) Branch hours as needed for Pain (scale 4-6). cephALEXin 2020- No [id number] 500mg Take 1 Univers (KEFLEX) 05-04- capsule [...] on for Clindamyci n use: cellulitis clindamycin 2020- No [id number] 450mg Take 3 Univers 150 mg 05-01 07-24 capsules ity of capsule 00:00: 04:59 by mouth 3 [place] 00 :00 (three) Medical times Branch daily for 10 days. sulfamethox 2020-0 Yes [id number] 2{tbl} Take 2 Univers azole-trime 2-15 tablets by it y of thoprim 00:00: mouth [place] 800-160 mg 00 every 12 Medic al per tablet (twelve) Branc h hours. hydrocortis 2020-0 Yes [id number] Apply to Univers one 2.5 % 2-15 affected ity of cream 00:00: area(s) 2 [place] [address] (two) Medical times Branch daily. methylPREDN 2020-0 Yes [id number] Take by Univers ISolone 4 2-15 mouth ity of mg tablets 00:00: [place]-INSTRU [place] 00 CTIONS. Medical follow Branch package directions sulfamethox 2020-0 Yes [id number] 2{tbl} Take 2 Univers azole-trime 2-15 tablets by it y of thoprim 00:00: mouth [place] 800-160 mg 00 every 12 Medic al per tablet (twelve) Branc h hours. hydrocortis 2020-0 Yes [id number] Apply to Univers one 2.5 % 2-15 affected ity of cream 00:00: area(s) 2 [place] [address] (two) Medical times Branch daily. methylPREDN 2020-0 Yes [id number] Take by Univers ISolone 4 2-15 mouth ity of mg tablets 00:00: [place]-INSTRU [place] 00 CTIONS. Medical follow Branch package directions sulfamethox 2020-0 Yes [id number] 2{tbl} Take 2 Univers azole-trime 2-15 tablets by it y of thoprim 00:00: mouth [place] 800-160 mg 00 every 12 Medic al per tablet (twelve) Branc h hours. hydrocortis 2020-0 Yes [id number] Apply to Univers one 2.5 % 2-15 affected ity of cream 00:00: area(s) 2 [place] [address] (two) Medical times Branch daily. methylPREDN 2020-0 Yes [id number] Take by Univers ISolone 4 2-15 mouth ity of mg tablets 00:00: [place]-INSTRU [place] 00 CTIONS. Medical follow Branch package directions sulfamethox 2020-0 Yes [id number] 2{tbl} Take 2 Univers azole-trime 2-15 tablets by it y of thoprim 00:00: mouth [place] 800-160 mg 00 every 12 Medic al per tablet (twelve) Branc h hours. hydrocortis 2020-0 Yes [id number] Apply to Univers one 2.5 % 2-15 affected ity of cream 00:00: area(s) 2 [place] [address] (two) Medical times Branch daily. methylPREDN 2020-0 Yes [id number] Take by Univers ISolone 4 2-15 mouth ity of mg tablets 00:00: SEE-INSTRU [place] 00 CTIONS. Medical follow Branch package directions sulfamethox 2020-0 Yes [id number] 2{tbl} Take 2 Univers azole-trime 2-15 tablets by it y of thoprim 00:00: mouth [place] 800-160 mg 00 every 12 Medic al per tablet (twelve) Branc h hours. hydrocortis 2020-0 Yes [id number] Apply to Univers one 2.5 % 2-15 affected ity of cream 00:00: area(s) 2 [place] [address] (two) Medical times Branch daily. methylPREDN 2020-0 Yes [id number] Take by Univers ISolone 4 2-15 mouth ity of mg tablets 00:00: [place]-INSTRU [place] 00 CTIONS. Medical follow Branch package directions cephALEXin 2019-0 2020- No [id number] 500mg Take 1 Univers 500 mg 2-15 [...] as needed for Pain (scale 4-6). cephALEXin 2017 Yes 500mg Take 1 Univ ers (KEFLEX) [...] ity o f tablet 00:00: mouth 2 00 (two) Medical times Branch daily. proMETHazin [...] 08:53:00 118 mm[Hg] Univer sity of pressure [place] [facility] Diastolic blood 2021-11-05 08:53:00 75 mm[Hg] Unive rsity of [facility] Heart rate 2021-11-05 08:53:00 92 /min Universi ty of [facility] Oxygen saturation in 2021-11-05 08:53:00 100 /min University of Arterial blood by [facility] Pulse oximetry Branch Body temperature 2021-11-05 07:28:00 36.67 Precious Univ ersity of [facility] [place] [facility] Branch Respiratory rate 2021-11-05 07:28:00 20 /min Univ ersity of [facility] Body weight 2021-11-05 07:28:00 56.7 kg Universi ty of [facility] BMI 2021-11-05 07:28:00 23.62 kg/m2 Universi ty of [place] [facility] Systolic blood 2021-05-05 00:00:00 135 mm[Hg] Univer sity of [facility] Branch Diastolic blood 2021-05-05 00:00:00 91 mm[Hg] Unive rsity of [facility] Branch Heart rate 2021-05-05 00:00:00 111 /min Universi ty of [place] [facility] Body temperature 2021-05-05 00:00:00 36.78 Precious Univ ersity of [facility] [place] [facility] Branch Respiratory rate 2021-05-05 00:00:00 16 /min Univ ersity of [place] [facility] Body weight 2021-05-05 00:00:00 56.7 kg Universi ty of [place] [facility] BMI 2021-05-05 00:00:00 23.62 kg/m2 Universi ty of [facility] [place] [facility] Branch Oxygen saturation in 2021-05-05 00:00:00 99 /min University of Arterial blood by [facility] Pulse oximetry Branch HEIGHT 2020-06-12 00:00:00 154.9 cm WEIGHT 2020-06-12 00:00:00 58.968 kg Systolic blood 2020-05-01 04:16:00 128 mm[Hg] Univer sity of pressure [place] [facility] Diastolic blood 2020-05-01 04:16:00 95 mm[Hg] Unive rsity of pressure [place] [facility] Heart rate 2020-05-01 04:16:00 95 /min Universi ty of [place] [facility] Body temperature 2020-05-01 04:16:00 36.94 Percious Univ ersity of [place] [facility] Respiratory rate 2020-05-01 04:16:00 16 /min Univ ersity of [place] [facility] Body weight 2020-05-01 04:16:00 58.999 kg Universi ty of [place] [facility] BMI 2020-05-01 04:16:00 24.58 kg/m2 Universi ty of [place] [facility] Oxygen saturation in 2020-05-01 04:16:00 97 /min University of Arterial blood by [place] [facility] Pulse oximetry Branch Systolic blood 2020-05-01 04:16:00 128 mm[Hg] Univer sity of pressure [place] [facility] Diastolic blood 2020-05-01 04:16:00 95 mm[Hg] Unive rsity of pressure [place] [facility] Heart rate 2020-05-01 04:16:00 95 /min Universi ty of [place] [facility] Body temperature 2020-05-01 04:16:00 36.94 Precious Univ ersity of [place] [facility] Respiratory rate 2020-05-01 04:16:00 16 /min Univ ersity of [place] [facility] Body weight 2020-05-01 04:16:00 58.999 kg Universi ty of [place] [facility] BMI 2020-05-01 04:16:00 24.58 kg/m2 Universi ty of [place] [facility] Oxygen saturation in 2020-05-01 04:16:00 97 /min University of Arterial blood by [employer] Pulse oximetry Branch Systolic blood 2019-12-04 21:54:00 131 mm[Hg] Univer sity of pressure [place] [facility] Diastolic blood 2019-12-04 21:54:00 89 mm[Hg] Unive rsity of pressure [place] [facility] Heart rate 2019-12-04 21:54:00 96 /min Universi ty of [place] [facility] Body temperature 2019-12-04 21:54:00 36.78 Precious Univ ersity of [place] [facility] Respiratory rate 2019-12-04 21:54:00 18 /min Univ ersity of [place] [facility] Oxygen saturation in 2019-12-04 21:54:00 100 /min University of Arterial blood by [facility] Pulse oximetry Branch Body weight 2019-12-04 19:44:00 68.04 kg Universi [facility] BMI 2019-12-04 19:44:00 28.34 kg/m[facility] Sy[facility] blood 2019-12-04 21:54:00 131 mm[Hg] Univer sity of pressure [facility] Diastolic blood 2019-12-04 21:54:00 89 mm[Hg] Unive rsity of pressure [facility] Heart rate 2019-12-04 21:54:00 96 /min Universi [facility] Body temperature 2019-12-04 21:54:00 36.78 Precious Univ ersity of [facility] Respiratory rate 2019-12-04 21:54:00 18 /min [facility] O[facility] saturation in 2019-12-04 21:54:00 100 /min [facility] Arterial blood by [facility] Pulse oximetry Branch Body weight 2019-12-04 19:44:00 68.04 kg [facility] BMI 2019-12-04 19:44:00 28.34 kg/m2 [facility] Procedures Procedure Date / Time Performed Performing Clinician Sourc e URINALYSIS 2021-11-05 07:58:00 Jimbo Eubanks [facility] POCT TEST 2021-11-05 07:58:00 Jimbo Eubanks [facility] CONSENT/REFUSAL FOR 2021-11-05 07:20:05 Doctor Unassigned, No Un iversity of [place] DIAGNOSIS AND Name Medical Branch TREATMENT URINALYSIS 2021-05-05 00:28:00 Kehinde Mcgill [place] o f [facility] NOTICE OF PRIVACY 2021-05-04 23:51:32 Doctor Unassigned, No Univ ersity [facility] PRACTICES Name [facility] Branch CONSENT/REFUSAL FOR 2021-05-04 23:51:08 Doctor Unassigned, No Un iversity [facility] DIAGNOSIS AND Name Medical Branch TREATMENT Encounters Start End Encounter Admission Attending Care Care Encounter Source Date/Time Date/Time Type Type Clinicians Facility Department ID 2021-11-05 2021-11-05 Emergency X BREE EUBANKS ERT [id number] Univers 01:32:00 02:59:00 JIMBO ity of [facility] 2021-11-05 2021-11-05 Emergency [facility] [id number] Univers 01:32:00 02:59:00 Jimbo MARTINEZ [id number] [facility] [place] [id number] [place] [id number] Branch 2021-11-05 2021-11-05 Orders Doctor MARLON [id number] Univers 00:00:00 00:00:00 Only Unassigned, JUNIOR [id number] ity of [place] [facility] 4.2.7.2.686 [place] [id number] [facility] 009 Branch 2021-05-04 2021-05-04 Emergency Kehinde Mcgill [facility] [id number] Univers 18:58:00 20:28:00 Tutu Martinez [id number] i ty of [place] 4.2.7.2.686 [facility] [id number] [place] [address] Branch 2021-05-04 2021-05-04 Emergency X Kehinde MCGILL [facility] ERT [id number] Univers 18:58:00 20:28:00 ity of [facility] 2020-06-12 2020-06-12 Emergency ER [facility] Emergency [id number] [facility] 17:39:00 17:39:00 2020-04-30 2020-05-01 Emergency Shepard, TRAUMA [id number] Univers 23:17:08 00:49:00 Sandhya [place]mal[place] [id number] ity of [place] [id number] [facility] 014 Branch 2020-04-30 2020-05-01 Emergency Shepard, TRAUMA [id number] 23:17:08 00:49:00 Sandhya Omalley [place] [id number] 4.2.7.2.686 [id number] 2020-04-30 2020-04-30 Emergency [facility] ERT [id number] Univers 23:17:08 23:17:08 SANDHYA ity of [facility] 2020-03-21 2020-03-21 Emergency X [facility] ERT [id number] Univers 11:28:00 11:28:00 ity of [facility] 2019-12-04 2019-12-04 Emergency Morrical, TRAUMA [id number] Univers 13:46:09 17:21:00 [facility] [id number] [place] [id number] [address] 2019-12-04 2019-12-04 Emergency Morrical, TRAUMA [id number] 13:46:09 17:21:00 [facility] [id number] [id number] Results Test Description Test Time Test Comments Results Result Comments Source POCT TEST 2021-11-05 07:58:00 Test Item Value Reference Range Interpretation Comme nts POCT PREG (test code = 1605) negative On board controls acceptable with C Line (test code = 3574) present POCT PREG LOT # (test code = 3575) [id number] POCT PREG TEST DATE (test code = 3576) 2022-12-17 Lab Interpretation (test code = 64771-1) [facility] Test Item Value Reference Range Interpretation Comments APPEARANCE (test code = Clear Clear 1828135526) COLOR (test code = Ashley Yellow A 3335244304) PH (test code = 4.8-8.0 4338871834) SP GRAVITY (test code = 1.003-1.030 3391584853) GLU U QUAL (test code = Normal Normal 5135234646) BLOOD (test code = Negative Negative 9667541774) KETONES (test code = 5 mg/dL Negative A 0479580659) PROTEIN (test code = Negative Negative 2887-8) UROBILIN (test code = Normal Normal 1076689318) BILIRUBIN (test code = Negative Negative 6919284288) NITRITE (test code = Negative Negative 7880944669) LEUK CRUZ (test code = Negative Negative 6557867957) RBC/HPF (test code = See_Comment [Autom ated message] 6267354363) The system [employer] generated this result transmitted ref erence range: 0 - 3 HP F. The reference range was not used to int erpret this result as normal/abnormal . WBC/HPF (test code = See_Comment [Autom ated message] 4328796104) The system [employer] generated this result transmitted ref erence range: 0 - 5 HP F. The reference range was not used to int erpret this result as normal/abnormal . BACTERIA (test code = Negative Negative 5395814457) MUCOUS (test code = Moderate Negative LPF A 8711445928) SQ EPITH (test code = HPF 4705002657) Lab Interpretation (test Abnormal code = 79317-9) [facility]
--- NOTE | 2022-02-15 12:00 | EDPHYS ---
Physician Documentation [facility] Name: Alison Morelos Age: 36 yrs Sex: Female : 1985 Arrival Date: 02/15/2022 Time: 11:35 Bed 30 Private MD: ED Physician Tommy Bone HPI: 02/15 18:30 This 36 yrs old Female presents to ER via Ambulatory with complaints of Insect Bite. kdr 18:30 The patient presents with an abscess, small. The complaints affect the medial aspect of kdr left thigh. Context: The problem was sustained at home, resulted from an unknown cause, the patient can fully bear weight, the patient is able to ambulate, Problem is a result from a previous injury: No. She has had a prior abscess on right medial thigh. Onset: The symptoms/episode began/occurred 3 day(s) ago. Modifying factors: The symptoms are alleviated by nothing. the symptoms are aggravated by nothing. Associated signs and symptoms: The patient has no apparent associated signs or symptoms. Treatment prior to arrival includes: no previous treatment. Severity of symptoms: At their worst the symptoms were very mild, in the emergency department the symptoms are unchanged. The patient has experienced a previous episode, last year. The patient has not recently seen a physician. Historical: - Allergies: 11:41 No Known Allergies; iw - PMHx: 11:41 TBI; iw - PSHx: 11:41 Tonsillectomy; neck; hip; back; iw - Immunization history:: Adult Immunizations up to date. - Social history:: Smoking status: unknown. ROS: 18:30 Constitutional: Negative for fever, chills, and weight loss, Eyes: Negative for injury, kdr pain, redness, and discharge, Neck: Negative for injury, pain, and swelling. 18:30 Skin: Positive for abscess, of the medial aspect of left thigh. Exam: 18:30 Constitutional: This is a well developed, well nourished patient who is awake, alert, kdr and in no acute distress. 18:30 Skin: abscess, that is small, of the medial aspect of left thigh, with drainage, that is purulent, with induration, with pointing, with surrounding cellulitis. Vital Signs: 11:39 BP 126 / 93; Pulse 113; Resp 16; Temp 98.9; Pulse Ox 100% on R/A; iw MDM: 11:59 Patient medically screened. kdr 18:30 Data reviewed: vital signs, nurses notes. Counseling: I had a detailed discussion with kdr the patient and/or guardian regarding: the historical points, exam findings, and any diagnostic results supporting the discharge/admit diagnosis, the need for outpatient follow up. ED course: Clean the site briefly and then expressed a small amount of purulent material. I was followed by some bloody purulent material. Patient tolerated well. Since the wound is already draining, it was felt that incision and drainage would not be necessary as the abscess was very small. Patient tolerated well. She was happy with the care provided the plan for discharge and follow-up. She understood that she needed to take her antibiotics for this a few days and that she should return should she worsen in any way. Patient was happy with the care provided the plan for discharge and follow-up. Administered Medications: 12:10 Drug: Bactrim (trimethoprim-sulfamethoxazole) (160 mg-800 mg (DS) 1 tablet Route: PO; bp 12:15 Follow up: Response: No adverse reaction bp 12:10 Drug: Ancef (cefazolin) 1 grams Route: IM; Site: right gluteus; bp 12:15 Follow up: Response: No adverse reaction bp 12:15 CANCELLED (Physician Discretion): Clindamycin 900 mg IM once bp 12:30 Drug: Flagyl (metroNIDAZOLE) 1 grams Route: PO; bp 12:35 Follow up: Response: No adverse reaction bp Disposition Summary: 02/15/22 11:59 Discharge Ordered Location: Home kdr Problem: new kdr Symptoms: have improved kdr Condition: Stable kdr Diagnosis - Cellulitis of medial left thigh with a small abscess that is draining kdr Followup: kdr - With: Private Physician - When: 2 - 3 days - Reason: If symptoms return, Further diagnostic work-up, Recheck today's complaints, Continuance of care, Re-evaluation by your physician Discharge Instructions: - Discharge Summary Sheet kdr - Skin Abscess, [id number] kdr - Cellulitis, Adult, [id number] kdr Forms: - Medication Reconciliation Form kdr - Thank You Letter kdr - Antibiotic Education kdr - Work release form eb Prescriptions: - Bactrim DS 800-160 mg Oral Tablet - take 1 tablet by ORAL route every 12 hours for 7 days; 14 tablet; Refills: 0, kdr Product Selection Permitted - Ibuprofen 600 mg Oral Tablet - take 1 tablet by ORAL route every 6 hours As needed take with food; 15 tablet; kdr Refills: 0, Product Selection Permitted Signatures: Tommy Bone MD MD kdr Karishma Lopez RN RN iw Bernardo Roach RN RN bp Corrections: (The following items were deleted from the chart) 12:15 11:56 Clindamycin 900 mg IM once ordered. [facility] bp
--- NOTE | 2022-02-15 12:00 | ER ---
Nurse's Notes [facility] Name: Alison Morelos Age: 36 yrs Sex: Female : 1985 Arrival Date: 02/15/2022 Time: 11:35 Bed 30 Private MD: Diagnosis: Cellulitis of medial left thigh with a small abscess that is draining Presentation: 02/15 11:39 Chief complaint: Patient states: abscess on left upper thigh, redness and swelling iw noted and popped by itself , also has a foul vaginal odor, says she needs a prescription for flagyl. Coronavirus screen: At this time, the client does not indicate any symptoms associated with coronavirus-19. Ebola Screen: Patient negative for fever greater than or equal to 101.5 degrees Fahrenheit, and additional compatible Ebola Virus Disease symptoms Patient denies exposure to infectious person. Patient denies travel to an Ebola-affected area in the 21 days before illness onset. No symptoms or risks identified at this time. Initial Sepsis Screen: Does the patient meet any 2 criteria? No. Patient's initial sepsis screen is negative. Does the patient have a suspected source of infection? No. Patient's initial sepsis screen is negative. Risk Assessment: Do you want to hurt yourself or someone else? Patient reports no desire to harm self or others. Onset of symptoms was February 11, 2022. 11:39 Method Of Arrival: Ambulatory iw 11:39 Acuity: TRACI 4 iw Triage Assessment: 11:57 Bite description: bite by a spider, animal information: vaccination(s) is not ab2 applicable. General: Appears in no apparent distress. uncomfortable, Behavior is calm, cooperative, appropriate for age. Pain: Complains of pain in left leg. EENT: No deficits noted. No signs and/or symptoms were reported regarding the EENT system. Neuro: Level of Consciousness is awake, alert, obeys commands, Oriented to person, place, time, situation, Appropriate for age [employer] are equal bilaterally Moves all extremities. Gait is steady, Speech is normal, Facial symmetry appears normal. Cardiovascular: No deficits noted. Denies chest pain, shortness of breath. 12:00 Bite description: bite sustained to medial aspect of left thigh. bp Historical: - Allergies: 11:41 No Known Allergies; iw - PMHx: 11:41 TBI; iw - PSHx: 11:41 Tonsillectomy; neck; hip; back; iw - Immunization history:: Adult Immunizations up to date. - Social history:: Smoking status: unknown. Screenin:57 Abuse screen: Denies threats or abuse. Denies injuries from another. Nutritional ab2 screening: No deficits noted. Tuberculosis screening: No symptoms or risk factors identified. Fall Risk None identified. Assessment: 11:56 General: Appears in no apparent distress. uncomfortable, Behavior is calm, cooperative, ab2 appropriate for age. Pain: Complains of pain in medial aspect of left thigh Pain does not radiate. Neuro: Level of Consciousness is awake, alert, obeys commands, Oriented to person, place, time, situation, Appropriate for age [employer] Development [employer] are equal bilaterally Moves all extremities. Gait is steady, Speech is normal. Cardiovascular: No deficits noted. Denies chest pain, shortness of breath, Heart tones S1 S2 present Patient's skin is warm and dry. Respiratory: No deficits noted. Airway is patent Respiratory effort is even, unlabored, Respiratory pattern is regular, symmetrical, Breath sounds are clear bilaterally. GI: No deficits noted. No signs and/or symptoms were reported involving the gastrointestinal system. Abdomen is round non-distended, Bowel sounds present X 4 quads. : No deficits noted. No signs and/or symptoms were reported regarding the genitourinary system. Derm: Skin Skin is pink, warm \T\ dry. Wound noted Abscess located on medial aspect of left thigh is dime sized. 12:35 Reassessment: PT D/C HOME AMBULATORY, DX WITH SKIN INFECTION. bp Vital Signs: 11:39 BP 126 / 93; Pulse 113; Resp 16; Temp 98.9; Pulse Ox 100% on R/A; iw ED Course: 11:35 Patient arrived in ED. as 11:36 Tommy Bone MD is Attending Physician. kdr 11:41 Triage completed. iw 11:41 Arm band placed on. iw 11:45 Tato Looney is Primary Nurse. ab2 11:57 No provider procedures requiring assistance completed. ab2 11:58 Patient has correct armband on for positive identification. Side rails up X2. ab2 12:35 Patient did not have IV access during this emergency room visit. bp Administered Medications: 12:10 Drug: Bactrim (trimethoprim-sulfamethoxazole) (160 mg-800 mg (DS) 1 tablet Route: PO; bp 12:15 Follow up: Response: No adverse reaction bp 12:10 Drug: Ancef (cefazolin) 1 grams Route: IM; Site: right gluteus; bp 12:15 Follow up: Response: No adverse reaction bp 12:15 CANCELLED (Physician Discretion): Clindamycin 900 mg IM once bp 12:30 Drug: Flagyl (metroNIDAZOLE) 1 grams Route: PO; bp 12:35 Follow up: Response: No adverse reaction bp Outcome: 11:59 Discharge ordered by . kdr 12:35 Discharged to home ambulatory. bp 12:35 Condition: stable 12:35 Discharge instructions given to patient, Instructed on discharge instructions, follow up and referral plans. medication usage, wound care, Demonstrated understanding of instructions, follow-up care, medications, wound care, Prescriptions given X 2. 12:40 Patient left the ED. bp Signatures: Tommy Bone MD MD kdr Richa Ford as Karishma Lopez, NELSON RN iw Bernardo Roach RN RN bp Tato Looney2 Corrections: (The following items were deleted from the chart) 11:42 11:39 Chief complaint: Patient states: abscess on left upper thigh, redness and iw swelling noted and popped by itself iw
[2022-02-15] MEDS ORDERED: SMZ./TMP. 800/160 MG TABLET ONE (12:11)
[2022-02-15] MEDS ORDERED: CEFAZOLIN SODIUM 1 GM/VIAL ONE (12:12)
[2022-02-15] MEDS ORDERED: LIDOCAINE 1% MPF 2 ML AMPULE ONE (12:13)
[2022-02-15] MEDS ORDERED: metroNIDAZOLE 500 MG TABLET ONE (12:30)
[2022-02-15 12:45] VITALS: BP 126/93; TEMP 98.9; O2SAT 100
== END 2022-02-15 12:40 | disposition home or self-care (01) ==
LOC: ER 11:32
DX: L03.116 Cellulitis of left lower limb (principal); Z87.820 Personal history of traumatic brain injury
CPT/HCPCS: 96372; 99283; J0690

== ENCOUNTER 2022-05-24 10:24 | Emergency (ER) | payer SELFPAY ==
--- OUTSIDE RECORDS SUMMARY | 2022-05-24 10:28 | XMS REPORT | Continuity of Care Document ---
:1985 Author Organization [facility] t Address [address] [place] [address] Care Team Providers Name Role Phone PCP, PATIENT DOES NOT HAVE A Primary Care Physician UnavailJIMBO Miranda Attending Clinician Unavailable Jimbo Campa MD Attending Clinician Doctor Unassigned, [place] Attending Clinician Unavailable Kehinde Ramirez Attending Clinician Kehinde MCGILL Attending Clinician Unavailable Sandhya Shepard APN Attending Clinician SANDHYA SHEPARD Attending Clinician Unavailable Paco Oakley MD Attending Clinician Payers Payer Name Policy Type Policy Number Effective Date Expiration Date S jaja MEDICAID PENDING PENDING 2021 00:00:00 Problems Condition Condition Condition Status Onset Resolution Last Treating Co mments Source Name Details Category Date Date Treatment Clinician Date Acute Acute Disease Active 2016-10 Univers osteomyeli osteomyeli 0-22 [place] y [place] [address] [place] [address] Branch Allergies, Adverse Reactions, Alerts Allergy Allergy Status Severity Reaction(s) Onset Inactive Treating Comm ents Source Name Type Date Date Clinician NO KNOWN Allergy Active [facility] NO KNOWN Drug Active Univers ALLERGIE Class ity of S [facility] Social History Social Habit Start Date Stop Date Quantity Comments Source Exposure to Not sure [facility] SARS-CoV-2 (event) Medica l [place] Sex Assigned At [birth year] [facility] 00:00:00 00:00:00 Medical Branch Smoking Status Start Date Stop Date Source Unknown if ever smoked [facility] Medications Ordered Filled Start Stop Current Ordering Indication Dosage Frequency Signature Comments Components Source Medication Medication Date Date Medication? Clinician (SIG) Name Name sulfamethox Yes [id number] 1{tbl} Take 1 Univers azole-trime 1-17 tablet by ity of thoprim 00:00: mouth [place] 800-160 mg 00 every 12 Medic al per tablet (twelve) Branc h hours. ibuprofen Yes [id number] 800mg Take 1 Univers 800 mg 1-17 [id number] tablet by ity of tablet 00:00: mouth [place] 00 every 8 Medical (eight) Branch hours as needed for Pain (scale 4-6) or Temp > 38.5 C. cephALEXin Yes [id number] 500mg Take 1 Univers (KEFLEX) 1-17 capsule by ity o f 500 mg 00:00: mouth 4 [place] capsule 00 (four) Medical times Branch daily. cephALEXin No 500mg 500 mg, Un jareth (KEFLEX) 7-17 -17 Oral, ity of capsule 500 01:30: 00:31 ONCE, 1 [place] mg 00 :00 dose, Fri Medical 05/04/21 at Branch 2030, PRIMITIVO
Re ason for Anti-Infec tive: Documented Infection< br>Documen jn Infection Site: Skin / Soft Tissue
Duration of Therapy: 10 days ibuprofen Yes [id number] 600mg Take 1 U nivers 600 mg 7-16 tablet by ity of tablet 00:00: mouth [place] 00 every 6 Medical (six) Branch hours as needed for Pain (scale 4-6). ibuprofen Yes [id number] 600mg Take 1 U nivers 600 mg 7-16 tablet by ity of tablet 00:00: mouth [place] 00 every 6 Medical (six) Branch hours as needed for Pain (scale 4-6). ibuprofen Yes [id number] 600mg Take 1 U nivers 600 mg 7-16 tablet by ity of tablet 00:00: mouth [place] 00 every 6 Medical (six) Branch hours as needed for Pain (scale 4-6). cephALEXin 2020- No [id number] 500mg Take 1 Univers (KEFLEX) 05-04-27 capsule by ity of 500 mg 00:00: 04:59 mouth 3 [place] capsule 00 :00 (three) Medical times Branch daily for 10 days. clindamycin Yes 450mg 450 mg, Un jareth (CLEOCIN 7- Oral, QID, ity o f HCL) 13:00: [...] for Clindamyci n use: cellulitis clindamycin 2019- No [id number] 450mg Take 3 Univers 150 mg 05-01-24 capsules ity of capsule 00:00: 04:59 by mouth 3 [place] 00 :00 (three) Medical times Branch daily for 10 days. sulfamethox 2019-0 Yes [id number] 2{tbl} Take 2 Univers azole-trime 2-15 tablets by it y of thoprim 00:00: mouth [place] 800-160 mg 00 every 12 Medic al per tablet (twelve) Branc h hours. hydrocortis 2019-0 Yes [id number] Apply to Univers one 2.5 % 2-15 affected ity of cream 00:00: area(s) 2 [place] (two) Medical times Branch daily. methylPREDN 2020-0 Yes [id number] Take by Univers ISolone 4 2-15 mouth ity of mg tablets 00:00: [place]-INSTRU [place] 00 CTIONS. Medical follow Branch package directions sulfamethox 2020-0 Yes [id number] 2{tbl} Take 2 Univers azole-trime 2-15 tablets by it y of thoprim 00:00: mouth [place] 800-160 mg 00 every 12 Medic al per tablet (twelve) Branc h hours. hydrocortis 2020-0 Yes [id number] Apply to Univers one 2.5 % 2-15 affected ity of cream 00:00: area(s) 2 [place] (two) Medical times Branch daily. methylPREDN 2020-0 Yes [id number] Take by Univers ISolone 4 2-15 mouth ity of mg tablets 00:00: [place]-INSTRU [place] 00 CTIONS. Medical follow Branch package directions sulfamethox 2020-0 Yes [id number] 2{tbl} Take 2 Univers azole-trime 2-15 tablets by it y of thoprim 00:00: mouth [place] 800-160 mg 00 every 12 Medic al per tablet (twelve) Branc h hours. hydrocortis 2020-0 Yes [id number] Apply to Univers one 2.5 % 2-15 affected ity of cream 00:00: area(s) [address] [place] [address] (two) Medical times Branch daily. methylPREDN 2020-0 Yes [id number] Take by Univers ISolone 4 2-15 mouth ity of mg tablets 00:00: SEE-INSTRU [place] 00 CTIONS. Medical follow Branch package directions sulfamethox 2020-0 Yes [id number] 2{tbl} Take 2 Univers azole-trime 2-15 tablets by it y of thoprim 00:00: mouth [place] 800-160 mg 00 every 12 Medic al per tablet (twelve) Branc h hours. hydrocortis 2020-0 Yes [id number] Apply to Univers one 2.5 % 2-15 affected ity of cream 00:00: area(s) [address] [place] [address] (two) Medical times Branch daily. methylPREDN 2020-0 Yes [id number] Take by Univers ISolone 4 2-15 mouth ity of mg tablets 00:00: SEE-INSTRU [place] 00 CTIONS. Medical follow Branch package directions sulfamethox 2020-0 Yes [id number] 2{tbl} Take 2 Univers azole-trime 2-15 tablets by it y of thoprim 00:00: mouth [place] 800-160 mg 00 every 12 Medic al per tablet (twelve) Branc h hours. hydrocortis 2020-0 Yes [id number] Apply to Univers one 2.5 % 2-15 affected ity of cream 00:00: area(s) 2 [place] (two) Medical times Branch daily. methylPREDN 2020-0 Yes [id number] Take by Univers ISolone 4 2-15 mouth ity of mg tablets 00:00: [place]-INSTRU [place] 00 CTIONS. Medical follow Branch package directions cephALEXin 0 2020- No [id number] 500mg Take 1 Univers 500 mg 2-15 -26 capsule by ity of capsule 00:00: 05:59 [...] as needed for Pain (scale 4-6). ketorolac 2017- Yes 10mg Take 1 Univer s 10 mg 9-03 tablet by ity of tablet 00:00: mouth [place] 00 every 6 Medical (six) Branch hours as needed for Pain (scale 4-6). ketorolac 2017-0 Yes 10mg Take 1 Univer s 10 [...] 08:53:00 118 mm[Hg] Univer sity of pressure [facility] Diastolic blood 2021-11-05 08:53:00 75 mm[Hg] Unive rsity of [facility] Heart rate 2021-11-05 08:53:00 92 /min Universi ty of [facility] Oxygen saturation in 2021-11-05 08:53:00 100 /min University of Arterial blood by [facility] Pulse oximetry Branch Body temperature 2021-11-05 07:28:00 36.67 Precious Univ ersity [facility] Respiratory rate 2021-11-05 07:28:00 20 /min Univ ersity [facility] Body weight 2021-11-05 07:28:00 56.7 kg Universi ty of [facility] BMI 2021-11-05 07:28:00 23.62 kg/m2 Universi ty of [facility] Systolic blood 2021-05-05 00:00:00 135 mm[Hg] Univer sity of [facility] Diastolic blood 2021-05-05 00:00:00 91 mm[Hg] Unive rsity of [facility] Heart rate 2021-05-05 00:00:00 111 /min Universi ty of [facility] Body temperature 2021-05-05 00:00:00 36.78 Precious Univ ersity [facility] Respiratory rate 2021-05-05 00:00:00 16 /min Univ ersity [facility] Body weight 2021-05-05 00:00:00 56.7 kg Universi ty of [facility] BMI 2021-05-05 00:00:00 23.62 kg/m2 Universi ty of [facility] Oxygen saturation in 2021-05-05 00:00:00 99 /min University of Arterial blood by [place] [employer] [facility] Pulse oximetry Branch HEIGHT 2020-06-12 00:00:00 154.9 cm WEIGHT 2020-06-12 00:00:00 58.968 kg Systolic blood 2020-05-01 04:16:00 128 mm[Hg] Univer sity of pressure [place] [facility] Diastolic blood 2020-05-01 04:16:00 95 mm[Hg] Unive rsity of pressure [place] [facility] Heart rate 2020-05-01 04:16:00 95 /min Universi ty of [place] [facility] Body temperature 2020-05-01 04:16:00 36.94 Precious Univ ersity of [place] [facility] Respiratory rate 2020-05-01 04:16:00 16 /min Univ ersity of [place] [facility] Body weight 2020-05-01 04:16:00 58.999 kg Universi ty of [place] [facility] BMI 2020-05-01 04:16:00 24.58 kg/m2 Universi ty of [place] [facility] Oxygen saturation in 2020-05-01 04:16:00 97 /min University of Arterial blood by [facility] Pulse oximetry Branch Systolic blood 2020-05-01 04:16:00 128 mm[Hg] Univer sity of pressure [place] [facility] Diastolic blood 2020-05-01 04:16:00 95 mm[Hg] Unive rsity of pressure [place] [facility] Heart rate 2020-05-01 04:16:00 95 /min Universi ty of [place] [facility] Body temperature 2020-05-01 04:16:00 36.94 Precious Univ ersity of [place] [facility] Respiratory rate 2020-05-01 04:16:00 16 /min Univ ersity of [place] [facility] Body weight 2020-05-01 04:16:00 58.999 kg Universi ty of [place] [facility] BMI 2020-05-01 04:16:00 24.58 kg/m2 Universi ty of [place] [facility] Oxygen saturation in 2020-05-01 04:16:00 97 /min University of Arterial blood by [facility]ike Pulse oximetry Branch Systolic blood 2019-12-04 21:54:00 131 mm[Hg] Univer sity of pressure [place] [facility] Diastolic blood 2019-12-04 21:54:00 89 mm[Hg] Unive rsity of pressure [place] [facility] Heart rate 2019-12-04 21:54:00 96 /min Universi ty of [place] [facility] Body temperature 2019-12-04 21:54:00 36.78 Precious Univ ersity of [place] [facility] Respiratory rate 2019-12-04 21:54:00 18 /min Univ ersity of [place] [facility] Oxygen saturation in 2019-12-04 21:54:00 100 /min University of Arterial blood by [facility] heike Pulse oximetry Branch Body weight 2019-12-04 19:44:00 68.04 kg Universi ty [facility] [place] BMI 2019-12-04 19:44:00 28.34 kg/m2 Universi ty [facility] Systolic blood 2019-12-04 21:54:00 131 mm[Hg] Univer sity of pressure [place] [facility] [place] Diastolic blood 2019-12-04 21:54:00 89 mm[Hg] Unive rsity of pressure [facility] Heart rate 2019-12-04 21:54:00 96 /min Universi ty [facility] Body temperature 2019-12-04 21:54:00 36.78 Precious [facility] Respiratory rate 2019-12-04 21:54:00 18 /min [facility] 2019-12-04 21:54:00 100 /min University of Arterial blood by [facility] Pulse oximetry Branch Body weight 2019-12-04 19:44:00 68.04 kg Universi ty [facility] Medical [place] BMI 2019-12-04 19:44:00 28.34 kg/m2 Universi [facility] Procedures Procedure Date / Time Performed Performing Clinician Sour e URINALYSIS 2021-11-05 07:58:00 Jimbo Campa [facility] POCT TEST 2021-11-05 07:58:[address] [facility] CONSENT/REFUSAL FOR 2021-11-05 07:20:05 Doctor Unassigned, No Un iversity of [place] DIAGNOSIS AND Name Medical Branch TREATMENT URINALYSIS 2021-05-05 00:28:00 Kehinde Mcgill [facility] o f [facility] NOTICE OF PRIVACY 2021-05-04 23:51:32 Doctor Unassigned, No Univ ersity of [place] PRACTICES Name Medical Branch CONSENT/REFUSAL FOR 2021-05-04 23:51:08 Doctor Unassigned, No Un iversity of [place] DIAGNOSIS AND Name Medical Branch TREATMENT Encounters Start End Encounter Admission Attending Care Care Encounter Source Date/Time Date/Time Type Type Clinicians Facility Department ID 2021-11-05 2021-11-05 Emergency [facility] [id number] Univers 01:32:00 02:59:00 WAKILI ity of [facility] 2021-11-05 2021-11-05 [facility] [id number] Univers 01:32:00 02:59:00 Jimbo MARTINEZ [id number] ity of [place] [facility]2.7.2.686 [facility] [id number] [place] [id number] Branch 2021-11-05 2021-11-05 Orders Doctor MARLON [id number] Univers 00:00:00 00:00:00 Only Unassigned, JUNIOR [id number] ity of [facility] 4.2.7.2.686 [place] [id number] [facility] 009 Branch 2021-05-04 2021-05-04 Emergency Kehinde Mcgill [facility] [id number] Univers 18:58:00 20:28:00 Blessing Martinez [id number] i ty of [place] 4.2.7.2.686 [facility] [id number] [place] [id number] Branch 2021-05-04 2021-05-04 Emergency X Kehinde MCGILL [facility] ERT [id number] Univers 18:58:00 20:28:00 ity of [facility] 2020-06-12 2020-06-12 Emergency ER [facility] Emergency [id number] [facility] 17:39:00 17:39:00 2020-04-30 2020-05-01 Emergency Shepard, TRAUMA [id number] Univers 23:17:08 00:49:00 Sandhya Omalley [place] [id number] ity of 4[place].2.686 [place] [id number] [facility] 014 Branch 2020-04-30 2020-05-01 Emergency Shepard, TRAUMA [id number] 23:17:08 00:49:00 Sandhya L [place] [id number] [id number] [id number] 2020-04-30 2020-04-30 Emergency X DEVYN [facility] ERT [id number] Univers 23:17:08 23:17:08 SANDHYA ity of [facility] 2020-03-21 2020-03-21 Emergency X [facility] ERT [id number] Univers 11:28:00 11:28:00 ity of [facility] 2019-12-04 2019-12-04 Emergency Morrical, TRAUMA [id number] Univers 13:46:09 17:21:00 [facility] [id number] [place] [id number] [address] 2019-12-04 2019-12-04 Emergency Morrical, TRAUMA [id number] 13:46:09 17:21:00 [facility] [id number] [id number] Results Test Description Test Time Test Comments Results Result Comments Source POCT TEST 2021-11-05 07:58:00 Test Item Value Reference Range Interpretation Comme nts POCT PREG (test code = 1605) negative On board controls acceptable with C Line (test code = 3574) present POCT PREG LOT # (test code = 3575) [id number] POCT PREG TEST DATE (test code = 3576) 2022-12-17 Lab Interpretation (test code = 91457-3) Normal [facility] 01:06:22 Test Item Value Reference Range Interpretation Comments APPEARANCE (test code = Clear Clear 5771306095) COLOR (test code = Ashley Yellow A 1809956057) PH (test code = 4.8-8.0 1860030886) SP GRAVITY (test code = 1.003-1.030 8776889685) GLU U QUAL (test code = Normal Normal 1939733912) BLOOD (test code = Negative Negative 6670263814) KETONES (test code = 5 mg/dL Negative A 6425161036) PROTEIN (test code = Negative Negative 2887-8) UROBILIN (test code = Normal Normal 2427555942) BILIRUBIN (test code = Negative Negative 6791863429) NITRITE (test code = Negative Negative 3171528956) LEUK CRUZ (test code = Negative Negative 7788072901) RBC/HPF (test code = See_Comment [Autom ated message] 4036301501) The system [employer] generated this result transmitted ref erence range: 0 - 3 HP F. The reference range was not used to int erpret this result as normal/abnormal . WBC/HPF (test code = See_Comment [Autom ated message] 7235674545) The system [employer] generated this result transmitted ref erence range: 0 - 5 HP F. The reference range was not used to int erpret this result as normal/abnormal . BACTERIA (test code = Negative Negative 2934772946) MUCOUS (test code = Moderate Negative LPF A 3504798101) SQ EPITH (test code = HPF 0872124489) Lab Interpretation (test Abnormal code = 32258-4) [facility]
--- NOTE | 2022-05-24 12:16 | ER ---
Nurse[facility] Name: Alison Morelos Age: 36 yrs Sex: Female : 1985 Arrival Date: 05/24/2022 Time: 10:25 Bed 12 Private MD: Diagnosis: Cellulitis of right lower limb-Foot Presentation: 05/24 10:29 Chief complaint: Patient states: she was bitten by a spider on 05/19/2022 on the top of ap3 her right foot. patient reports the symptoms and the inflammation have improved, but she wants to be evaluated to make sure the bite area is not infected at this time. Coronavirus screen: At this time, the client does not indicate any symptoms associated with coronavirus-19. Ebola Screen: No symptoms or risks identified at this time. Initial Sepsis Screen: Does the patient meet any 2 criteria? No. Patient's initial sepsis screen is negative. Does the patient have a suspected source of infection? Yes: Skin breakdown/wound. Risk Assessment: Do you want to hurt yourself or someone else? Patient reports no desire to harm self or others. Onset of symptoms was May 19, 2022. 10:29 Method Of Arrival: Ambulatory ap3 10:29 Acuity: TRACI 4 ap3 Triage Assessment: 10:33 Bite description: bite sustained to dorsum of right foot by an unknown animal, animal ap3 information: vaccination(s) is not applicable. General: Appears in no apparent distress. Behavior is calm, cooperative. Pain: Complains of pain in right foot Pain began gradually. Neuro: Level of Consciousness is awake, alert, obeys commands, Oriented to person, place, time, situation, Appropriate for age Gait is steady, Speech is normal. Cardiovascular: Patient's skin is warm and dry. Respiratory: Airway is patent Respiratory effort is even, unlabored, Respiratory pattern is regular, symmetrical. Derm: Wound noted dorsum of right foot. 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 - Social history:: Smoking status: Patient reports the use of cigarette tobacco products, smokes one-half pack cigarettes per day, Patient uses street drugs, marijuana, Methamphetamine (Meth). Screenin:35 Abuse screen: Denies threats or abuse. Nutritional screening: No deficits noted. ap3 Tuberculosis screening: No symptoms or risk factors identified. 12:22 Fall Risk None identified. ap3 Assessment: 10:44 General: Appears in no apparent distress. Behavior is calm, cooperative. Pain: Denies iw pain. Neuro: Level of Consciousness is awake, alert, obeys commands, Oriented to person, place, time, situation, Moves all extremities. Full function. Respiratory: Respiratory effort is even, unlabored. Derm: Skin is intact, has lesions on top of right foot Skin is pink, warm \T\ dry. Musculoskeletal: Range of motion: intact in all extremities. Vital Signs: 10:29 BP 119 / 84; Pulse 95; Resp 18; Temp 98.3; Pulse Ox 100% ; Weight 61.23 kg; Height 5 ap3 ft. 1 in. (154.94 cm); 10:29 Body Mass Index 25.51 (61.23 kg, 154.94 cm) ap3 ED Course: 10:25 Patient arrived in ED. am2 10:28 Tommy Bone MD is Attending Physician. kdr 10:31 Triage completed. ap3 10:35 Arm band placed on left wrist. ap3 10:37 Karishma Lopez, RN is Primary Nurse. iw 10:44 No provider procedures requiring assistance completed. iw 10:50 Patient has correct armband on for positive identification. Bed in low position. Call ap3 light in reach. Side rails up X 1. Adult w/ patient. Pulse ox on. NIBP on. Door closed. Noise minimized. 12:22 Patient did not have IV access during this emergency room visit. ap3 Administered Medications: No medications were administered Medication: 12:22 VIS not applicable for this client. ap3 Outcome: 12:15 Discharge ordered by . kdr 12:21 Discharged to home ambulatory. ap3 12:21 Condition: good 12:21 Discharge instructions given to patient, Instructed on discharge instructions, follow up and referral plans. medication usage, Demonstrated understanding of instructions, follow-up care, medications, Prescriptions given X 1. 12:22 Patient left the ED. ap3 Signatures: Tommy Bone MD MD kdr Karishma Lopez, RN RN iw aKt [place] am2 Kat Castillo, RN RN ap3
--- NOTE | 2022-05-24 12:16 | EDPHYS ---
Physician Documentation [facility] Name: Alison Morelos Age: 36 yrs Sex: Female : 1985 Arrival Date: 05/24/2022 Time: 10:25 Bed 12 Private MD: ED Physician Tommy Bone HPI: 05/24 15:46 This 36 yrs old Female presents to ER via Ambulatory with complaints of Insect Bite - kdr spider. 15:46 Patient complains of swelling to the dorsum of her right foot. She attributes this to a kdr possible spider bite. She indicated that although the swelling is mild to moderate at this time, it is improved over the last few days.. Onset: The symptoms/episode began/occurred gradually, 5 day(s) ago. Severity of symptoms: At their worst the symptoms were mild in the emergency department the symptoms are unchanged. The patient has not experienced similar symptoms in the past. The patient has not recently seen a physician. 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 - Social history:: Smoking status: Patient reports the use of cigarette tobacco products, smokes one-half pack cigarettes per day, Patient uses street drugs, marijuana, Methamphetamine (Meth). ROS: 15:46 Constitutional: Negative for fever, chills, and weight loss, Eyes: Negative for injury, kdr pain, redness, and discharge, Neck: Negative for injury, pain, and swelling, Cardiovascular: Negative for chest pain, palpitations, and edema, Respiratory: Negative for shortness of breath, cough, wheezing, and pleuritic chest pain, Abdomen/GI: Negative for abdominal pain, nausea, vomiting, diarrhea, and constipation, Back: Negative for injury and pain, : Negative for injury, bleeding, discharge, and swelling, MS/Extremity: Negative for injury and deformity, Neuro: Negative for headache, weakness, numbness, tingling, and seizure activity. Psych: Negative for depression, anxiety, suicide ideation, homicidal ideation, and hallucinations, Allergy/Immunology: Negative for hives, rash, and allergies, Endocrine: Negative for neck swelling, polydipsia, polyuria, polyphagia, and marked weight changes, Hematologic/Lymphatic: Negative for swollen nodes, abnormal bleeding, and unusual bruising. 15:46 Skin: Positive for cellulitis, erythema, swelling. Exam: 15:46 Constitutional: This is a well developed, well nourished patient who is awake, alert, kdr and in no acute distress. Head/Face: Normocephalic, atraumatic. 15:46 Skin: cellulitis, that is minimal, on the dorsum of right foot. 15:50 Vital Signs: 10:29 BP 119 / 84; Pulse 95; Resp 18; Temp 98.3; Pulse Ox 100% ; Weight 61.23 kg; Height 5 ap3 ft. 1 in. (154.94 cm); 10:29 Body Mass Index 25.51 (61.23 kg, 154.94 cm) ap3 MDM: 12:15 Patient medically screened. kdr 15:50 Data reviewed: vital signs, nurses notes, lab test result(s), radiologic studies. kdr Counseling: I had a detailed discussion with the patient and/or guardian regarding: the historical points, exam findings, and any diagnostic results supporting the discharge/admit diagnosis, lab results, radiology results, the need for outpatient follow up. Administered Medications: No medications were administered Disposition Summary: 05/24/22 12:15 Discharge Ordered Location: Home kdr Problem: an ongoing problem kdr Symptoms: have improved kdr Condition: Stable kdr Diagnosis - Cellulitis of right lower limb - Foot kdr Followup: kdr - With: Private Physician - When: 2 - 3 days - Reason: If symptoms return, Further diagnostic work-up, Recheck today's complaints, Continuance of care, Re-evaluation by your physician Discharge Instructions: - Discharge Summary Sheet kdr - Cellulitis, Adult, [id number] kdr Forms: - Medication Reconciliation Form kdr - Thank You Letter kdr - Antibiotic Education kdr Prescriptions: - Cephalexin 500 mg Oral Capsule - take 1 capsule by ORAL route every 8 hours for 7 days; 21 capsule; Refills: 0, kdr Product Selection Permitted Signatures: Tommy Bone MD MD kdr Kat Castillo RN RN ap3
[2022-05-24 12:42] VITALS: BP 119/84; TEMP 98.3; O2SAT 100
== END 2022-05-24 12:22 | disposition home or self-care (01) ==
LOC: ER 10:24
DX: L03.115 Cellulitis of right lower limb (principal); W57.XXXA Bitten or stung by nonvenomous insect and other nonvenomous arthropods, initial encounter; F17.210 Nicotine dependence, cigarettes, uncomplicated
CPT/HCPCS: 99283

== ENCOUNTER 2023-03-20 20:58 | Emergency (ER) | payer OTHER, SELFPAY ==
--- OUTSIDE RECORDS SUMMARY | 2023-03-20 21:01 | XMS REPORT | Continuity of Care Document ---
:1985 Author Organization [facility] t Address [address] [place] [address] Care Team Providers Name Role Phone PCP, PATIENT DOES NOT HAVE A Primary Care Physician UnavailAbdifatah Jones Attending Clinician Unavailable JIMBO CAMPA Attending Clinician Unavailable Jimbo Campa MD Attending Clinician Doctor Unassigned, [place] Attending Clinician Unavailable Kehinde Ramirez Attending Clinician Kehinde MCGILL Attending Clinician Unavailable Sandhya Renner APN Attending Clinician SANDHYA RENNER Attending Clinician Unavailable Paco Oakley MD Attending [...] Date Clinician NO KNOWN [facility]ergy [facility] NO KNOWN Drug Active Univers [facility] ity of [facility] Social History Social Habit Start Date Stop Date Quantity Comments Source Exposure to Not sure [facility] SARS-CoV-2 (event) Medica l [place] Sex Assigned At [birth year] [facility] Medical 00:00:00 00:00:00 Center Smoking Status Start Date Stop Date Source Unknown if ever smoked [facility] Medications Ordered Filled Start Stop Current Ordering Indication Dosage Frequency Signature Comments Components Source Medication Medication Date Date Medication? Clinician (SIG) Name Name sulfamethox Yes [id number] 1{tbl} Take 1 Univers azole-trime 1-17 tablet by ity of thoprim 00:00: mouth [place] 800-160 mg 00 every 12 Medic al per tablet (twelve) Branc h hours. ibuprofen Yes [id number] 800mg Take 1 Univers 800 mg 1-17 [id number] tablet by ity of tablet 00:00: mouth [place] 00 every 8 Medical (eight) Branch hours as needed for Pain (scale 4-6) or Temp > 38.5 C. cephALEXin Yes [id number] 500mg Take 1 Univers (KEFLEX) 1-17 capsule by ity o f 500 mg 00:00: mouth 4 [place] capsule 00 (four) Medical times Branch daily. cephALEXin No 500mg 500 mg, Un jareth (KEFLEX) 7-17 - Oral, ity of capsule 500 01:30: 00:31 ONCE, 1 [place] mg 00 :00 dose, Fri Medical 05/04/21 at Branch 2030, PRIMITIVO
Re ason for Anti-Infec tive: Documented Infection< br>Documen jn Infection Site: Skin / Soft Tissue
Duration of Therapy: 10 days ibuprofen Yes [id number] 600mg Take 1 U nivers 600 mg 7-16 tablet by ity of tablet 00:00: mouth [place] 00 every 6 Medical (six) Branch hours as needed for Pain (scale 4-6). ibuprofen Yes [id number] 600mg Take 1 U nivers 600 mg 7-16 tablet by ity of tablet 00:00: mouth [place] 00 every 6 Medical (six) Branch hours as needed for Pain (scale 4-6). ibuprofen Yes [id number] 600mg Take 1 U nivers 600 mg 7-16 tablet by ity of tablet 00:00: mouth [place] 00 every 6 Medical (six) Branch hours as needed for Pain (scale 4-6). cephALEXin 2020- No [id number] 500mg Take 1 Univers (KEFLEX) 7-16 07-27 [...] Clindamyci n use: cellulitis clindamycin 2020- No [id number] 450mg Take 3 Univers 150 mg 7-13 07-24 capsules ity of capsule 00:00: 04:59 by mouth 3 [place] as 00 :00 (three) Medical times Branch daily for 10 days. sulfamethox 2019-0 Yes [id number] 2{tbl} Take 2 Univers azole-trime 2-15 tablets by it y of thoprim 00:00: mouth [place] 800-160 mg 00 every 12 Medic al per tablet (twelve) Branc h hours. hydrocortis 2019-0 Yes [id number] Apply to Univers one 2.5 % 2-15 affected ity of cream 00:00: area(s) 2 (two) Medical times Branch daily. methylPREDN 2020-0 Yes [id number] Take by Univers ISolone 4 2-15 mouth ity of mg tablets 00:00: SEE-INSTRU [place] 00 CTIONS. Medical follow Branch package directions sulfamethox 2019-0 Yes [id number] 2{tbl} Take 2 Univers azole-trime 2-15 tablets by it y of thoprim 00:00: mouth [place] 800-160 mg 00 every 12 Medic al per tablet (twelve) Branc h hours. hydrocortis 2020-0 Yes [id number] Apply to Univers one 2.5 % 2-15 affected ity of cream 00:00: area(s) 2 [place] [address] (two) Medical times Branch daily. methylPREDN 2020-0 Yes [id number] Take by Univers ISolone 4 2-15 mouth ity of mg tablets 00:00: SEE-INSTRU [place] 00 CTIONS. Medical follow Branch package directions sulfamethox 2020-0 Yes [id number] 2{tbl} Take 2 Univers azole-trime 2-15 tablets by it y of thoprim 00:00: mouth [place] 800-160 mg 00 every 12 Medic al per tablet (twelve) Branc h hours. hydrocortis 2020-0 Yes [id number] Apply to Univers one 2.5 % 2-15 affected ity of cream 00:00: area(s) 2 [place] (two) Medical times Branch daily. methylPREDN 2020-0 Yes [id number] Take by Univers ISolone 4 2-15 mouth ity of mg tablets 00:00: SEE-INSTRU [place] 00 CTIONS. Medical follow Branch package directions sulfamethox 2020-0 Yes [id number] 2{tbl} Take 2 Univers azole-trime 2-15 tablets by it y of thoprim 00:00: mouth [place] 800-160 mg 00 every 12 Medic al per tablet (twelve) Branc h hours. hydrocortis 2020-0 Yes [id number] Apply to Univers one 2.5 % 2-15 affected ity of cream 00:00: area(s) 2 [place] (two) Medical times Branch daily. methylPREDN 2020-0 Yes [id number] Take by Univers ISolone 4 2-15 mouth ity of mg tablets 00:00: SEE-INSTRU [place] 00 CTIONS. Medical follow Branch package directions sulfamethox 2020-0 Yes [id number] 2{tbl} Take 2 Univers azole-trime 2-15 tablets by it y of thoprim 00:00: mouth [place] 800-160 mg 00 every 12 Medic al per tablet (twelve) Branc h hours. hydrocortis 2020-0 Yes [id number] Apply to Univers one 2.5 % 2-15 affected ity of cream 00:00: area(s) 2 [place] 00 (two) Medical times Branch daily. methylPREDN 2019-0 Yes [id number] Take by Univers ISolone 4 2-15 mouth ity of mg tablets 00:00: SEE-INSTRU [place] 00 CTIONS. Medical follow Branch package directions cephALEXin 2020- No [id number] 500mg Take 1 Univers 500 mg 2-15 02-26 capsule by ity of capsule 00:00: 05:59 [...] as needed for Pain (scale 4-6). cephALEXin 2017- Yes 500mg Take 1 Univ ers (KEFLEX) 0-22 capsule by ity o f 500 mg 00:00: mouth 4 [place] capsule 00 (four) Medical times Branch daily. traMADOL 2017- Yes 50mg Take 1 Univers (ULTRAM) 50 [...] 2021-11-05 08:53:00 118 mm[Hg] Univer sity of [facility] Diastolic blood 2021-11-05 08:53:00 75 mm[Hg] Unive rsity of [facility] Heart rate 2021-11-05 08:53:00 92 /min Universi ty [facility] Oxygen saturation in 2021-11-05 08:53:00 100 /min University of Arterial blood by [place] [employer] Pulse oximetry Branch Body temperature 2021-11-05 07:28:00 36.67 Precious Univ ersity [facility] Respiratory rate 2021-11-05 07:28:00 20 /min Univ ersity [facility] Body weight 2021-11-05 07:28:00 56.[address] [facility] BMI 2021-11-05 07:28:00 23.62 kg/m2 Universi ty [facility] Systolic blood 2021-05-05 00:00:00 135 mm[Hg] Univer sity of [facility] Diastolic blood 2021-05-05 00:00:00 91 mm[Hg] Unive rsity of [facility] Heart rate 2021-05-05 00:00:00 111 /min Universi ty [facility] Body temperature 2021-05-05 00:00:00 36.78 Precious Univ ersity [facility] Respiratory rate 2021-05-05 00:00:00 16 /min Univ ersity of [facility] Body weight 2021-05-05 00:00:00 [address] [facility] BMI 2021-05-05 00:00:00 23.62 kg/m2 Universi ty [facility] Oxygen saturation in 2021-05-05 00:00:00 99 /min University of Arterial blood by [employer] Pulse oximetry Branch HEIGHT 2020-06-12 00:00:00 154.9 [...] /min University of Arterial blood by [place] [employer]ike Pulse oximetry Branch Systolic blood 2020-05-01 [...] 97 /min University of Arterial blood by [employer] heike Pulse oximetry Branch Systolic blood 2019-12-04 21:54:00 131 mm[Hg] Univer sity of pressure [place] [facility] Diastolic blood 2019-12-04 21:54:00 89 mm[Hg] Unive rsity of pressure [place] [facility] Heart rate 2019-12-04 21:54:00 96 /min Universi ty of [place] [facility] Body temperature 2019-12-04 21:54:00 36.78 Precious Univ ersity [facility] Respiratory rate 2019-12-04 21:54:00 18 /min Univ ersity of [facility] Oxygen saturation in 2019-12-04 21:54:00 100 /min University of Arterial blood by [facility] Pulse oximetry Branch Body weight 2019-12-04 19:44:00 68.04 kg Universi ty [facility] BMI 2019-12-04 19:44:00 28.34 kg/m2 Universi ty [facility] Systolic blood 2019-12-04 21:54:00 131 mm[Hg] Univer sity of pressure [facility] Diastolic blood 2019-12-04 21:54:00 89 mm[Hg] Unive rsity of pressure [facility] Heart rate 2019-12-04 21:54:00 96 /min Universi ty [facility] Body temperature 2019-12-04 21:54:00 36.78 [facility] 2019-12-04 21:54:00 18 /min [facility] [place] [facility] O[facility] saturation in 2019-12-04 21:54:00 100 /min University of Arterial blood by [facility] Pulse oximetry Branch Body weight 2019-12-04 19:44:00 68.04 kg Universi ty [facility] BMI 2019-12-04 19:44:00 28.34 kg/m2 [facility] Procedures Procedure Date / Time Performed Performing Clinician Sour e URINALYSIS 2021-11-05 07:58:00 Jimbo Campa [facility] POCT TEST 2021-11-05 07:58:00 Jmibo Campa [facility] CONSENT/REFUSAL FOR 2021-11-05 07:20:05 Doctor Unassigned, No Un [facility] [place] DIAGNOSIS AND Name Medical Branch TREATMENT URINALYSIS 2021-05-05 00:28:00 Kehinde Mcgill [place] o f [facility] NOTICE OF PRIVACY 2021-05-04 23:51:32 Doctor Unassigned, No Univ ersity [facility] PRACTICES Name Medical Branch CONSENT/REFUSAL FOR 2021-05-04 23:51:08 Doctor Unassigned, No [facility] [place] DIAGNOSIS AND Name Medical Branch TREATMENT Plan of Care Planned Activity Planned Date Details Comments Source Future Scheduled 2023-06-[address] [facility] Test 00:00:00 (Season Ended) [code Medical Center = INFLUENZA VACCINE (Season Ended)] Future Scheduled 2022-10-[address] [facility] Test 00:00:00 (12+) [code = Medical Center DEPRESSION SCREENING (12+)] Future Scheduled [address] [facility] Test 00:[facility]:00 malignant neoplasm of Medica l Center cervix (procedure) [code = 343419667] Future Scheduled 2004 DTAP/TDAP/TD VACCINES [facility] Test 00:00:00 (1 - Tdap) [code = Medical C enter DTAP/TDAP/TD VACCINES (1 - Tdap)] Future Scheduled 2003 HEPATITIS C SCREENING [facility] Test 00:00:00 [code = HEPATITIS C Medical Center SCREENING] Future Scheduled [address] [facility] Test 00:00:00 Counseling and Medical Cente r Screening (12+) [code = Tobacco Cessation Counseling and Screening (12+)] Future Scheduled 1985 COVID-19 VACCINE (#1) [facility] Test 00:00:00 [code = COVID-[address] VACCINE (#1)] Encounters Start End Encounter Admission Attending Care Care Encounter Source Date/Time Date/Time Type Type Clinicians Facility Department ID 2023-02-05 Outpatient ASHER STERLING [id number] [facility] 10:46:17 Formerly named [facility]9 [facility] 2023-02-05 2023-02-05 Outpatient ASHER Villeda CHSánchez [id number] [facility] 00:00:00 00:00:00 [facility] [place] 2021-11-05 2021-11-05 Emergency X [facility] ERT [id number] Univers 01:32:00 02:59:00 JIMBO bernstein [facility] 2021-11-05 2021-11-05 Emergency [facility] [id number] Univers 01:32:00 02:59:00 Jimbo [facility] [id number] day [facility] [id number] [facility] [id number] [place] [address] Branch 2021-11-05 2021-11-05 Orders Doctor MARLON [id number] Univers 00:00:00 00:00:00 Only Unassigned, JUNIOR [id number] ity of [place] [facility] 4.2.7.2.686 [place] [id number] [facility] 009 Branch 2021-05-04 2021-05-04 Emergency Kehinde Mcgill [facility] [id number] Univers 18:58:00 20:28:00 Blessing [place] [id number] i ty [place]2.[place] [id number] [facility] 08 Branch 2021-05-04 2021-05-04 Emergency X Kehinde MCGILL [facility] ERT [id number] Univers 18:58:00 20:28:[address] [facility] 2020-06-12 2020-06-12 Emergency ER [facility] Emergency [id number] [facility] 17:39:00 17:39:00 2020-04-30 2020-05-01 Emergency Renner, TRAUMA [id number] 23:17:08 00:49:00 Sandhya FREEMAN [id number] [id number] 2020-04-30 2020-05-01 Emergency Renner, TRAU[place] [id number] Univers 23:17:08 00:49:00 Sandhya FREEMAN [id number] [place] [id number] [facility] 014 Branch 2020-04-30 2020-04-30 Emergency X RENNER, [facility] ERT [id number] Univers 23:17:08 23:17:[address] [facility] 2020-03-21 2020-03-21 Emergency X [facility] ERT [id number] Univers 11:28:00 11:28:[address] [facility] 2019-12-04 2019-12-04 Emergency Morrical, TRAUMA [id number] 13:46:09 17:21:00 Paco FREEMAN [id number] [id number] 014 2019-12-04 2019-12-04 Emergency Morrical, TRAU[place] [id number] Univers 13:46:09 17:21:00 [facility] [id number] ity of 4.2.7.2.686 Pedro agarwal [id number] [address] Results Test Description Test Time Test Comments Results Result Comments Source POCT TEST 2021-11-05 07:58:00 Test Item Value Reference Range Interpretation Comme nts POCT PREG (test code = 1605) negative On board controls acceptable with C Line (test code = 3574) present POCT PREG LOT # (test code = 3575) [id number] POCT PREG TEST DATE (test code = 3576) 2022-12-17 Lab Interpretation (test code = 22457-5) Normal [facility] 01:06:22 Test Item Value Reference Range Interpretation Comments APPEARANCE (test code = Clear Clear 6937468157) COLOR (test code = Ashley Yellow A 1129776498) PH (test code = 4.8-8.0 3123188368) SP GRAVITY (test code = 1.003-1.030 3029618238) GLU U QUAL (test code = Normal Normal 2764912429) BLOOD (test code = Negative Negative 9652719667) KETONES (test code = 5 mg/dL Negative A 3562618691) PROTEIN (test code = Negative Negative 2887-8) UROBILIN (test code = Normal Normal 8146136300) BILIRUBIN (test code = Negative Negative 3582419122) NITRITE (test code = Negative Negative 4907674923) LEUK CRUZ (test code = Negative Negative 2728641512) RBC/HPF (test code = See_Comment [Autom ated message] 4682500357) The system [employer] generated this result transmitted ref erence range: 0 - 3 HP F. The reference range was not used to int erpret this result as normal/abnormal . WBC/HPF (test code = See_Comment [Autom ated message] 0561717304) The system [employer] generated this result transmitted ref erence range: 0 - 5 HP F. The reference range was not used to int erpret this result as normal/abnormal . BACTERIA (test code = Negative Negative 5265136092) MUCOUS (test code = Moderate Negative LPF A 4348829355) SQ EPITH (test code = HPF 6676920292) Lab Interpretation (test Abnormal code = 30092-1) [facility]
--- NOTE | 2023-03-20 22:16 | RAD REPORT ---
EXAM DESCRIPTION: Lc Single View03/20/2023 10:10 pm CLINICAL HISTORY: weakness COMPARISON: No comparisons TECHNIQUE: Portable AP view of the chest. FINDINGS: The lungs are clear. No pneumothorax or effusion. The cardiomediastinal contours are unre markable. IMPRESSION: No acute cardiopulmonary process.
[2023-03-20 23:05] LABS: Hematocrit 41.8 % (36.0-45.0); MCV 90.7 fL (80-100); MPV 8.5 fL (7.6-11.3); RBC Red Blood Cell Count 4.61 M/uL (3.86-4.86)
[2023-03-20 23:06] LABS: SARS-CoV-2 Antigen Rapid Res Negative (Negative)
[2023-03-20 23:34] LABS: BUN Blood Urea Nitrogen 16 mg/dL (7-18); Bicarbonate 26 mEq/L (21-32); Glomerular Filtration Rate 100 ml/min (=/>90); Glucose Level 124 mg/dL (74-106); Sodium Level 135 mEq/L (136-145)
[2023-03-20 23:41] LABS: Magnesium 2.2 mg/dL (1.6-2.4); Potassium 4.2 mEq/L (3.5-5.1); Troponin High Sensitivity < 3.0 pg/mL (<58.9)
[2023-03-20 23:46] LABS: Blood Morphology Comment NOT SEEN (NOT SEEN); Platelet Estimate ADEQ
[2023-03-21] MEDS ORDERED: ONDANSETRON 4 MG/2 ML VIAL ONE (00:09)
[2023-03-21] MEDS ORDERED: NA CHLORIDE 0.9% 1,000 ML ONE ×2 (00:09→01:15)
[2023-03-21 02:02] LABS: Barbiturates NEGATIVE (NEGATIVE); Benzodiazepines NEGATIVE (NEGATIVE); Cocaine NEGATIVE (NEGATIVE); METHAMPHETAM POSITIVE (NEGATIVE); Methadone NEGATIVE (NEGATIVE); Opiates NEGATIVE (NEGATIVE); Phencyclidine NEGATIVE (NEGATIVE); THC Cannibis NEGATIVE (NEGATIVE)
[2023-03-21 02:05] LABS: Specific Gravity 1.023 (1.005-1.030); Urine Bacteria None Seen /HPF (<20); Urine Bilirubin NEGATIVE (Negative); Urine Blood Negative (Negative); Urine Clarity Clear (Clear); Urine Color Yellow (Yellow); Urine Glucose NEGATIVE (Negative); Urine Mucus Slight /HPF (None Seen); Urine Protein TRACE (Negative); Urine RBC None Seen /HPF (None Seen); Urine Urobilinogen Normal (Normal); Urine pH 7.5 (5.0-7.0)
[2023-03-21 02:08] LABS: Specific Gravity 1.023 (1.005-1.030)
--- NOTE | 2023-03-21 02:21 | ER ---
Nurse's Notes [facility] Name: Alison Morelos Age: 37 yrs Sex: Female : 1985 Arrival Date: 03/20/2023 Time: 20:58 Bed 15 Private MD: Diagnosis: Nausea;Volume depletion, unspecified;Adverse effect of amphetamines, initial encounter;Other malaise and fatigue Presentation: 03/20 21:26 Chief complaint: Patient states: i feel like i was drugged. like someone gave me iw heroin. im nauseous and all i want to do is sleep X3 days. Coronavirus screen: Client denies travel out of the [place] in the last 14 days. At this time, the client does not indicate any symptoms associated with coronavirus-19. Ebola Screen: No symptoms or risks identified at this time. Initial Sepsis Screen: Does the patient meet any 2 criteria? No. Patient's initial sepsis screen is negative. Does the patient have a suspected source of infection? No. Patient's initial sepsis screen is negative. Risk Assessment: Do you want to hurt yourself or someone else? Patient reports no desire to harm self or others. Onset of symptoms is unknown. 21:26 Method Of Arrival: Wheelchair iw 21:26 Acuity: TRACI 3 iw Triage Assessment: 21:30 General: Appears in no apparent distress. uncomfortable, Behavior is flat. Pain: iw Complains of pain in back and abdomen. EENT: No deficits noted. Neuro: Ivy Agitation-Sedation Scale (RASS): -1 Drowsy Level of Consciousness is awake, obeys commands, Oriented to person, place, time, situation. Cardiovascular: No deficits noted. Respiratory: No deficits noted. Airway is patent Respiratory effort is even, unlabored, Respiratory pattern is regular, symmetrical. GI: Abdomen is round non-distended, Reports lower abdominal pain, upper abdominal pain, nausea, vomiting. : No deficits noted. No signs and/or symptoms were reported regarding the genitourinary system. Derm: No deficits noted. No signs and/or symptoms reported regarding the dermatologic system. Skin is intact, is healthy with good turgor, Skin is dry, Skin is normal, Skin temperature is warm. Musculoskeletal: Circulation, motion, and sensation intact. Range of motion: intact in all extremities. 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 - Social history:: Smoking status: Patient reports the use of cigarette tobacco products, smokes one pack cigarettes per day. Patient/guardian denies using alcohol, street drugs. Screenin/02 00:49 Abuse screen: Denies threats or abuse. Nutritional screening:. vc1 00:49 [facility] ED Fall Risk Assessment (Adult) History of falling in the last 3 months, vc1 including since admission No falls in past 3 months (0 pts) Confusion or Disorientation No (0 pts) Intoxicated or Sedated No (0 pts) Impaired Gait Yes (1 pt) Mobility Assist Device Used No (0 pt) Altered Elimination No (0 pt) Score/Fall Risk Level 0 - 2 = Low Risk Oriented to surroundings, Maintained a safe environment, Educated pt \T\ family on fall prevention, incl call for assistance when getting out of bed. Nutritional screening: Has had N/V for 3 or more days. Tuberculosis screening: No symptoms or risk factors identified. Assessment: 03/20 21:34 General: Appears uncomfortable, Behavior is calm, cooperative. Pain: Complains of pain ha1 in abdomen Pain currently is 3 out of 10 on a pain scale. Quality of pain is described as crampy. Neuro: Level of Consciousness is awake, alert, obeys commands, Oriented to person, place, time, situation, Reports weakness. Cardiovascular: Capillary refill < 3 seconds Patient's skin is warm and dry. Respiratory: Airway is patent Respiratory effort is even, unlabored, Respiratory pattern is regular, symmetrical. GI: Abdomen is flat, non-distended, Reports lower abdominal pain, nausea, vomiting. 22:00 Reassessment: No changes from previously documented assessment. Patient and/or family vc1 updated on plan of care and expected duration. Pain level reassessed. 23:00 Reassessment: No changes from previously documented assessment. Patient and/or family vc1 updated on plan of care and expected duration. Pain level reassessed. 03/21 00:15 Reassessment: Patient and/or family updated on plan of care and expected duration. Pain ha1 level reassessed. Patient is alert, oriented x 3, equal unlabored respirations, skin warm/dry/pink. 01:10 Reassessment: Patient and/or family updated on plan of care and expected duration. Pain ha1 level reassessed. Patient is alert, oriented x 3, equal unlabored respirations, skin warm/dry/pink. 02:30 Reassessment: Patient and/or family updated on plan of care and expected duration. Pain ha1 level reassessed. Patient is alert, oriented x 3, equal unlabored respirations, skin warm/dry/pink. Vital Signs: 03/20 21:26 BP 117 / 89; Pulse 49; Resp 17 S; Temp 98.7(A); Pulse Ox 100% on R/A; Weight 63.5 kg iw (R); Height 5 ft. 1 in. (R); 22:16 BP 124 / 81; Pulse 49; Resp 16 S; Pulse Ox 100% ; ha1 03/21 00:15 BP 112 / 72; Pulse 52; Resp 18 S; Pulse Ox 100% on R/A; ha1 01:15 BP 112 / 72; Pulse 52; Resp 16 S; Pulse Ox 52% on R/A; ha1 02:30 BP 118 / 85; Pulse 62; Resp 18 S; Pulse Ox 100% on R/A; ha1 03/20 21:26 Body Mass Index 26.45 (63.50 kg, 154.94 cm) iw ED Course: 03/20 21:02 Patient arrived in ED. ag3 21:25 Dustin Coy PA is PHCP. cp 21:25 Dustin Freitas MD is Attending Physician. cp 21:30 Triage completed. iw 21:30 Arm band placed on left wrist. iw 21:55 Inserted saline lock: 20 gauge in right antecubital area, using aseptic technique. ha1 ,using aseptic technique. IV inserted by NELSON Oconnell Blood collected. 22:00 Malina Luis RN is Primary Nurse. ha1 22:00 Patient has correct armband on for positive identification. Bed in low position. Call vc1 light in reach. Client placed on continuous cardiac and pulse oximetry monitoring. NIBP monitoring applied. 22:12 XRAY Chest (1 view) In Process Unspecified. EDMS 22:15 EKG done, by ED staff, reviewed by Dustin GRAJEDA. 03/21 01:43 UDS Sent. ha1 01:43 PREGU Sent. ha1 01:43 Urine W/Microscopic (UAM) Sent. ha1 02:50 No provider procedures requiring assistance completed. IV discontinued, intact, ha1 bleeding controlled, No redness/swelling at site. Pressure dressing applied. Administered Medications: 00:10 Drug: NS 0.9% IV 1000 ml Route: IV; Rate: 1 bolus; Site: right antecubital; kl 02:49 Follow up: Response: No adverse reaction; IV Status: Completed infusion; IV Intake: ha1 1000ml 00:10 Drug: Ondansetron IVP 4 mg Route: IVP; Site: right antecubital; kl 00:30 Follow up: Response: No adverse reaction ha1 01:08 Drug: NS 0.9% IV 1000 ml Route: IV; Rate: 1 bolus; Site: right antecubital; ha1 02:49 Follow up: Response: No adverse reaction; IV Status: Completed infusion; IV Intake: ha1 1000ml Medication: 00:50 VIS not applicable for this client. vc1 Intake: 02:49 IV: 1000ml; Total: 1000ml. ha1 02:49 IV: 1000ml; Total: 2000ml. ha1 Outcome: 02:21 Discharge ordered by MD. cp 02:51 Discharged to home via wheelchair, with family. ha1 02:51 Condition: stable 02:51 Discharge instructions given to patient, family, Instructed on discharge instructions, follow up and referral plans. medication usage, Demonstrated understanding of instructions, follow-up care, medications, Prescriptions given X 1. 02:51 Patient left the ED. ha1 Signatures: Dispatcher [employer] EDMS Catrachita Drake RN RN kl Williams, Irene, RN RN iw Page, Corey, PA PA cp Gomez, Alice ag3 Marsh, Wendy wm Calcote, Vanessa, RN RN vc1 Malina Luis RN RN ha1
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
[2023-03-21 03:00] VITALS: TEMP 98.7
[2023-03-21 03:19] VITALS: BP 118/85; O2SAT 100
--- NOTE | 2023-03-21 13:46 | EKG ---
Test Date: 2023-03-20 Test Time: 22:10:56 Body Specialist: MEASUREMENT RESULTS: Intervals: Rate: 47 GA: 120 QRSD: 84 QT: 480 QTc: 424 [place]: P: 63 GA: 120 QRS: 56 T: 44 INTERPRETIVE STATEMENTS: Sinus bradycardia Otherwise normal ECG Compared to ECG 08/11/2016 20:58:38 Sinus rhythm no longer present Short GA interval no longer present Electronically Signed On 03-21-23 13:45:28 CDT by Uday Pettit
== END 2023-03-21 02:51 | disposition home or self-care (01) ==
LOC: ER 20:58
DX: E86.9 Volume depletion, unspecified (principal); T43.625A Adverse effect of amphetamines, initial encounter; R53.81 Other malaise; R53.83 Other fatigue; F17.210 Nicotine dependence, cigarettes, uncomplicated; Z20.822 Contact with and (suspected) exposure to COVID-19
CPT/HCPCS: 96361; 93005; 85025; 81001; 80048; 36415; 83735; 81025; 84484; 80307; 87804 ×2; 71045; 96374; 99284; 87811; J2405; J7030 ×2

== ENCOUNTER 2023-04-28 18:05 | Emergency (ER) | payer OTHER ==
--- OUTSIDE RECORDS SUMMARY | 2023-04-28 18:09 | XMS REPORT | Continuity of Care Document ---
:1985 Author Organization [facility] t Address [address] [place]. [address] [place] [address] Care Team Providers Name Role Phone No, Pcp [facility] Primary Care Physician Unavailable Abdifatah Villeda Attending Clinician Unavailable JIMBO EUBANKS Attending Clinician Unavailable Jimbo Eubanks MD Attending Clinician Doctor Unassigned, [place] Attending Clinician Unavailable Kehinde Ramirez Attending Clinician Kehinde MCGILL Attending Clinician Unavailable Sandhya Shepard APN Attending Clinician SANDHYA SHEPARD Attending Clinician Unavailable Paco Oakley MD Attending Clinician Payers Payer Name Policy Type Policy Number Effective Date Expiration Date S [facility] [place] PENDING PENDING 2021 00:00:00 Problems Condition [...] Date Clinician NO KNOWN Allergy Active [facility] NO KNOWN Drug Active Univers ALLERGIE Class ity of S [facility] Social History Social Habit Start Date Stop Date Quantity Comments Source Exposure to Not sure [facility] SARS-CoV-2 (event) Medica l [place] Sex Assigned At [birth year] [facility] Medical 00:00:00 00:00:00 Center Smoking Status Start Date Stop Date Source Unknown if ever smoked [facility] Medications Ordered Filled Start Stop Current Ordering Indication Dosage Frequency Signature Comments Components Source Medication Medication Date Date Medication? Clinician (SIG) Name Name sulfamethox Yes [id number] 1{tbl} Take 1 Univers azole-trime 1-17 tablet by ity of thoprim 00:00: mouth [place] 800-160 mg 00 every 12 Medic al per tablet (twelve) Branc h hours. ibuprofen Yes [id number] 800mg Take 1 Univers 800 mg 1-17 [id number] tablet by ity of tablet 00:00: mouth [place] 00 every 8 Medical (eight) Branch hours as needed for Pain (scale 4-6) or Temp > 38.5 C. cephALEXin Yes [id number] 500mg Take 1 Univers (KEFLEX) 1-17 capsule [...]
Duration of Therapy: 10 days ibuprofen Yes [id number] 600mg Take 1 U nivers 600 mg 7-16 tablet by ity of tablet 00:00: mouth [place] 00 every 6 Medical (six) Branch hours as needed for Pain (scale 4-6). ibuprofen Yes [id number] 600mg Take 1 U nivers 600 mg 7-16 tablet by ity of tablet 00:00: mouth [place] 00 every 6 Medical (six) Branch hours as needed for Pain (scale 4-6). ibuprofen Yes [id number] 600mg Take 1 U nivers 600 mg 7-16 tablet by ity of tablet 00:00: mouth [place] 00 every 6 Medical (six) Branch hours as needed for Pain (scale 4-6). cephALEXin 2020- No [id number] 500mg Take 1 Univers (KEFLEX) 7-16 07-27 [...] Clindamyci n use: cellulitis clindamycin 2020- No [id number] 450mg Take 3 Univers 150 mg 7- 07-24 capsules ity of capsule 00:00: 04:59 by mouth 3 [place] as 00 :00 (three) Medical times Branch daily for 10 days. methylPREDN 2019-0 Yes [id number] Take by Univers ISolone 4 2-15 mouth ity of mg tablets 00:00: [place]INSTRU [place] 00 CTIONS. Medical follow Branch package directions sulfamethox 2020-0 Yes [id number] 2{tbl} Take 2 Univers azole-trime 2-15 tablets by it y of thoprim 00:00: mouth [place] 800-160 mg 00 every 12 Medic al per tablet (twelve) Branc h hours. hydrocortis 2020-0 Yes [id number] Apply to Univers one 2.5 % 2-15 affected ity of cream 00:00: area(s) 2 [place] 00 (two) Medical times Branch daily. methylPREDN 2020-0 Yes [id number] Take by Univers ISolone 4 2-15 mouth ity of mg tablets 00:00: [place]-INSTRU [place] 00 CTIONS. Medical follow Branch package directions sulfamethox 2020-0 Yes [id number] 2{tbl} Take 2 Univers azole-trime 2-15 tablets by it y of thoprim 00:00: mouth [place] 800-160 mg 00 every 12 Medic al per tablet (twelve) Branc h hours. hydrocortis 2020-0 Yes [id number] Apply to Univers one 2.5 % 2-15 affected ity of cream 00:00: area(s) 2 [place] [address] (two) Medical times Branch daily. methylPREDN 2020-0 Yes [id number] Take by Univers ISolone 4 2-15 mouth ity of mg tablets 00:00: SEE-INSTRU [place] 00 CTIONS. Medical follow Branch package directions sulfamethox 2020-0 Yes [id number] 2{tbl} Take 2 Univers azole-trime 2-15 tablets by it y of thoprim 00:00: mouth [place] 800-160 mg 00 every 12 Medic al per tablet (twelve) Branc h hours. hydrocortis 2020-0 Yes [id number] Apply to Univers one 2.5 % 2-15 affected ity of cream 00:00: area(s) [address] [place] [address] (two) Medical times Branch daily. methylPREDN 2020-0 Yes [id number] Take by Univers ISolone 4 2-15 mouth ity of mg tablets 00:00: SEE-INSTRU [place] 00 CTIONS. Medical follow Branch package directions sulfamethox 2020-0 Yes [id number] 2{tbl} Take 2 Univers azole-trime 2-15 tablets by it y of thoprim 00:00: mouth [place] 800-160 mg 00 every 12 Medic al per tablet (twelve) Branc h hours. hydrocortis 2020-0 Yes [id number] Apply to Univers one 2.5 % 2-15 affected ity of cream 00:00: area(s) 2 [place] [address] (two) Medical times Branch daily. methylPREDN 2020-0 Yes [id number] Take by Univers ISolone 4 2-15 mouth ity of mg tablets 00:00: SEE-INSTRU [place] 00 CTIONS. Medical follow Branch package directions sulfamethox 2020-0 Yes [id number] 2{tbl} Take 2 Univers azole-trime 2-15 tablets by it y of thoprim 00:00: mouth [place] 800-160 mg 00 every 12 Medic al per tablet (twelve) Branc h hours. hydrocortis 2019-0 Yes [id number] Apply to Univers one 2.5 % 2-15 affected ity of cream 00:00: area(s) 2 [place] 00 (two) Medical times Branch daily. cephALEXin 0 2020- No [id number] 500mg Take 1 Univers 500 mg 2-15 [...] 08:53:00 118 mm[Hg] Univer sity of pressure [facility] Diastolic blood 2021-11-05 08:53:00 75 mm[Hg] Unive rsity of [facility] Heart rate 2021-11-05 08:53:00 92 /min Universi ty of [facility] Oxygen saturation in 2021-11-05 08:53:00 100 /min University of Arterial blood by [place] [employer] [facility] Pulse oximetry Branch Body temperature 2021-11-05 07:28:00 36.67 Precious Univ ersity of [facility] Respiratory rate 2021-11-05 07:28:00 20 /min Univ ersity of [facility] Body weight 2021-11-05 07:28:00 56.7 kg Universi ty of [facility] BMI 2021-11-05 07:28:00 23.62 kg/m2 Universi ty of [facility] Branch Systolic blood 2021-05-05 00:00:00 135 mm[Hg] Univer sity of [facility] Diastolic blood 2021-05-05 00:00:00 91 mm[Hg] Unive rsity of [facility] Heart rate 2021-05-05 00:00:00 111 /min Universi ty of [facility] Branch Body temperature 2021-05-05 00:00:[address] [facility] ersity of [facility] Branch Respiratory rate 2021-05-05 00:00:00 16 /min Univ ersity of [facility] Body weight 2021-05-05 00:00:00 56.7 kg Universi ty of [facility] BMI 2021-05-05 00:00:00 23.62 kg/m2 Universi ty [facility] Oxygen saturation in 2021-05-05 00:00:00 99 /min University of Arterial blood by [place] [employer] [facility] Pulse oximetry Branch HEIGHT 2020-06-12 00:00:00 154.9 cm WEIGHT 2020-06-12 00:00:00 58.968 kg Systolic blood 2020-05-01 04:16:00 128 mm[Hg] Univer sity of pressure [place] [facility] Diastolic blood 2020-05-01 04:16:00 95 mm[Hg] Unive rsity of pressure [place] [facility] Heart rate 2020-05-01 04:16:00 95 /min Universi ty of [place] [facility] Body temperature 2020-05-01 04:16:00 36.94 Precious Univ ersity of [place] [facility] Respiratory rate 2020-05-01 04:16:00 16 /min Univ ersity of [place] [facility] Body weight 2020-05-01 04:16:00 58.999 kg Universi ty of [place] [facility] BMI 2020-05-01 04:16:00 24.58 kg/m2 Universi ty of [place] [facility] Oxygen saturation in 2020-05-01 04:16:00 97 /min University of Arterial blood by [facility] heike Pulse oximetry Branch Systolic blood 2020-05-01 04:16:00 128 mm[Hg] Univer sity of pressure [place] [facility] Diastolic blood 2020-05-01 04:16:00 95 mm[Hg] Unive rsity of pressure [place] [facility] Heart rate 2020-05-01 04:16:00 95 /min Universi ty of [place] [facility] Body temperature 2020-05-01 04:16:00 36.94 Precious Univ ersity of [place] [facility] Respiratory rate 2020-05-01 04:16:00 16 /min Univ ersity of [place] [facility] Body weight 2020-05-01 04:16:00 58.999 kg Universi ty of [place] [facility] BMI 2020-05-01 04:16:00 24.58 kg/m2 Universi ty of [place] [facility] Oxygen saturation in 2020-05-01 04:16:00 97 /min University of Arterial blood by [place] [employer] [place] Pulse oximetry Branch Systolic blood 2019-12-04 21:54:00 131 mm[Hg] Univer sity of pressure [place] [facility] Diastolic blood 2019-12-04 21:54:00 89 mm[Hg] Unive rsity of pressure [place] [facility] Heart rate 2019-12-04 21:54:00 96 /min Universi ty of [place] [facility] Body temperature 2019-12-04 21:54:00 36.78 Precious Univ ersity of [place] [facility] Respiratory rate 2019-12-04 21:54:00 18 /min Univ ersity of [facility] Oxygen saturation in 2019-12-04 21:54:00 100 /min University of Arterial blood by [facility] Pulse oximetry Branch Body weight 2019-12-04 19:44:00 68.04 kg Universi ty [facility] BMI 2019-12-04 19:44:00 28.34 kg/m2 Universi ty [facility] Systolic blood 2019-12-04 21:54:00 131 mm[Hg] Univer sity of pressure [facility] Diastolic blood 2019-12-04 21:54:00 89 mm[Hg] Unive rsity of pressure [facility] Heart rate 2019-12-04 21:54:00 96 /[facility] 2019-12-04 21:54:[address] [facility] 2019-12-04 21:54:00 18 /min [facility] O[facility] in 2019-12-04 21:54:00 100 /min University of Arterial blood by [facility] Pulse oximetry Branch Body weight 2019-12-04 19:44:00 68.04 kg Universi ty [facility] BMI 2019-12-04 19:44:00 28.34 kg/m2 [facility] Procedures Procedure Date / Time Performed Performing Clinician Sour e URINALYSIS 2021-11-05 07:58:00 Jimbo Eubanks [facility] POCT TEST 2021-11-05 07:58:00 Jimbo Eubanks [facility] CONSENT/REFUSAL FOR 2021-11-05 07:20:05 Doctor Unassigned, No Un iversity of [place] DIAGNOSIS AND Name Medical Branch TREATMENT URINALYSIS 2021-05-05 00:28:00 Kehinde Mcgill [place] [facility] NOTICE OF PRIVACY 2021-05-04 23:51:32 Doctor Unassigned, No Univ ersity of [place] PRACTICES Name Medical Branch CONSENT/REFUSAL FOR 2021-05-04 23:51:08 Doctor Unassigned, No Un [facility]ity of [place] DIAGNOSIS AND Name Medical Branch TREATMENT Plan of Care Planned Activity Planned Date Details Comments Source Future Scheduled 2023-06-[address] [facility] Test 00:00:00 (Season Ended) [code Medical Center = INFLUENZA VACCINE (Season Ended)] Future Scheduled 2023-06-[address] [facility] Test 00:00:00 (#1) [code = Medical Center Influenza Vaccine (#1)] Future Scheduled 2022-10-[address] [facility] Test 00:00:00 (12+) [code = Medical Center DEPRESSION SCREENING (12+)] Future Scheduled 2022-10-[address] [facility] Test 00:00:00 (12+) [code = Medical Center DEPRESSION SCREENING (12+)] Future Scheduled [address] [facility] Test 00:[facility]:00 malignant neoplasm of [facility] cervix (procedure) [code = 843169758] Future Scheduled [address] [facility] Test 00:00:00 malignant neoplasm of [facility] cervix (procedure) [code = 538664012] Future Scheduled 2004 DTAP/TDAP/TD VACCINES [facility] Test 00:00:00 (1 - Tdap) [code = Medical C enter DTAP/TDAP/TD VACCINES (1 - Tdap)] Future Scheduled 2004 DTAP/TDAP/TD VACCINES [facility] Test 00:00:00 (1 - Tdap) [code = Medical C enter DTAP/TDAP/TD VACCINES (1 - Tdap)] Future Scheduled 2003 HEPATITIS C SCREENING [facility] Test 00:00:00 [code = HEPATITIS C Medical Center SCREENING] Future Scheduled 2003 HEPATITIS C [facility]CRE[facility]ING [facility] Test 00:00:00 [code = HEPATITIS C Medical Center SCREENING] Future Scheduled [address] [facility] Test 00:00:00 Counseling and Medical Cente r Screening (12+) [code = Tobacco Cessation Counseling and Screening (12+)] Future Scheduled [address] [facility] Test 00:00:00 Counseling and Medical Cente r Screening (12+) [code = Tobacco Cessation Counseling and Screening (12+)] Future Scheduled 1985 COVID-19 VACCINE (#1) [facility] Test 00:00:00 [code = COVID-[address] VACCINE (#1)] Future Scheduled 1985 COVID-19 VACCINE (#1) [facility] Emma [facility]ior Test 00:00:00 [code = COVID-[address] VACCINE (#1)] Encounters Start End Encounter Admission Attending Care Care Encounter Source Date/Time Date/Time Type Type Clinicians Facility Department ID 2023-02-05 Outpatient CHW CHW [id number] [facility] 10:46:17 0419 [facility] 2023-02-05 2023-02-05 Outpatient Christiana Sánchez W [id number] [facility] 00:00:00 00:00:00 [facility] 2021-11-05 2021-11-05 [id number] Univers 01:32:00 02:59:00 JIMBO ity [facility] 2021-11-05 2021-11-05 [facility] [id number] Univers 01:32:00 02:59:00 Jimbo Christiana LENNOX [id number] ity of [place] 4.2.7.2.686 [facility] [id number] [place] [id number] [place] 2021-11-05 2021-11-05 Orders Doctor MARLON [id number] Univers 00:00:00 00:00:00 Only Unassigned, JUNIOR [id number] ity of [place] [facility] 4.2.7.2.686 [place] [id number] [facility] 009 Branch 2021-05-04 2021-05-04 Emergency Kehinde Mcgill [facility] [id number] Univers 18:58:00 20:28:00 Blessing Martinez [id number] i ty of [place] 4.2.7.2.686 [facility] [id number] [facility] 084 Branch 2021-05-04 2021-05-04 Emergency X Kehinde MCGILL [facility] ERT [id number] Univers 18:58:00 20:28:00 ity [facility] 2020-06-12 2020-06-12 Emergency ER SLE Emergency [id number] SLE 17:39:00 17:39:00 2020-04-30 2020-05-01 Emergency Shepard, TRAUMA [id number] 23:17:08 00:49:00 Sandhya FREEMAN [id number] 4.2.7.2.686 [id number] 2020-04-30 2020-05-01 Emergency Shepard, TRAUMA [id number] Univers 23:17:08 00:49:00 Sandhya [place] [id number] [id number] [address] 2020-04-30 2020-04-30 Emergency X DEVYN [facility] ERT [id number] Univers 23:17:08 23:17:08 SANDHYA ity [facility] 2020-03-21 2020-03-21 Emergency X [facility] ERT [id number] Univers 11:28:00 11:28:00 ity [facility] 2019-12-04 2019-12-04 Emergency Morrical, TRAUMA [id number] 13:46:09 17:21:00 Paco O [place] [id number] [id number] [id number] 014 2019-12-04 2019-12-04 Emergency Morrical, TRAUMA [id number] Univers 13:46:09 17:21:00 Paco O [place] [id number] [place] [id number] [address] Results Test Description Test Time Test Comments Results Result Comments Source POCT TEST 2021-11-05 07:58:00 Test Item Value Reference Range Interpretation Comme nts POCT PREG (test code = 1605) negative On board controls acceptable with C Line (test code = 3574) present POCT PREG LOT # (test code = 3575) [id number] POCT PREG TEST DATE (test code = 3576) 2022-12-17 Lab Interpretation (test code = 02461-8) [facility]22 Test Item Value Reference Range Interpretation Comments APPEARANCE (test code = Clear Clear [id number]) COLOR (test code = Ashley Yellow A 6069673316) PH (test code = 4.8-8.0 3259725753) SP GRAVITY (test code = 1.003-1.030 6439001166) GLU U QUAL (test code = Normal Normal 3445714274) BLOOD (test code = Negative Negative 3697789878) KETONES (test code = 5 mg/dL Negative A 8924289285) PROTEIN (test code = Negative Negative 2887-8) UROBILIN (test code = Normal Normal 2962408945) BILIRUBIN (test code = Negative Negative 5885029240) NITRITE (test code = Negative Negative 0513916845) LEUK CRUZ (test code = Negative Negative 7255356327) RBC/HPF (test code = See_Comment [Autom ated message] 1663952080) The system [employer] generated this result transmitted ref erence range: 0 - 3 HP F. The reference range was not used to int erpret this result as normal/abnormal . WBC/HPF (test code = See_Comment [Autom ated message] 9862797639) The system [employer] generated this result transmitted ref erence range: 0 - 5 HP F. The reference range was not used to int erpret this result as normal/abnormal . BACTERIA (test code = Negative Negative 4776707406) MUCOUS (test code = Moderate Negative LPF A 2340990874) SQ EPITH (test code = HPF 2656729356) Lab Interpretation (test Abnormal code = 25144-8) [facility]
--- NOTE | 2023-04-28 18:55 | RAD REPORT ---
EXAM DESCRIPTION: CT - [id number] - 04/28/2023 6:47 pm CLINICAL HISTORY: Trauma, head and neck injury. Headache;Pain COMPARISON: No comparisons TECHNIQUE: Axial 5 mm thick images of the head were obtained. Axial 2 mm thick images of the cervical spine were obtained with sagittal and coronal reconstruction images generated and reviewed. All CT scans are performed using dose optimization technique as appropriate and may include automated exposure control or mA/KV adjustment according to patient size. FINDINGS: CT HEAD WITHOUT CONTRAST: No acute hemorrhage, hydrocephalus or extra-axial collection is identified.No areas of brain edema or midline shift. The paranasal sinuses and mastoids are clear.The calvarium is intact. CT CERVICAL SPINE WITHOUT CONTRAST: No fracture or subluxation.No prevertebral soft tissues swelling is identified. IMPRESSION: No acute intracranial or cervical spine findings.
--- NOTE | 2023-04-28 18:57 | EDPHYS ---
Physician Documentation [facility] Name: Alison Morelos Age: 37 yrs Sex: Female : 1985 Arrival Date: 04/28/2023 Time: 18:05 Bed DIS3 Private MD: ED Physician Dustin Freitas HPI: 04/28 18:52 This 37 yrs old Female presents to ER via Ambulatory with complaints of Head marielena Injury-Adult. 18:52 The patient or guardian reports abrasion, pain, swelling, tenderness. The complaints marielena affect the right eye. Context of injury: The problem was sustained at work. Onset: The symptoms/episode began/occurred just prior to arrival. Associated signs and symptoms: The patient has no apparent associated signs or symptoms, Loss of consciousness: This patient did not experience any loss of consciousness. Severity of symptoms: At their worst the symptoms were mild, in the emergency department the symptoms are unchanged. The patient has not experienced similar symptoms in the past. Historical: - Allergies: 18:19 No Known Allergies; bp - PMHx: 18:19 TBI; bp - PSHx: 18:19 back; hip; neck; Tonsillectomy; bp - Immunization history:: Adult Immunizations up to date. - Social history:: Smoking status: Patient denies any tobacco usage or history of. ROS: 18:53 Constitutional: Negative for fever, chills, and weight loss, Eyes: Negative for injury, marielena pain, redness, and discharge, ENT: Negative for injury, pain, and discharge, Neck: Negative for injury, pain, and swelling, Cardiovascular: Negative for chest pain, palpitations, and edema, Respiratory: Negative for shortness of breath, cough, wheezing, and pleuritic chest pain, Abdomen/GI: Negative for abdominal pain, nausea, vomiting, diarrhea, and constipation, Back: Negative for injury and pain, : Negative for injury, bleeding, discharge, and swelling, MS/Extremity: Negative for injury and deformity, Skin: Negative for injury, rash, and discoloration, Psych: Negative for depression, anxiety, suicide ideation, homicidal ideation, and hallucinations, Allergy/Immunology: Negative for hives, rash, and allergies, Endocrine: Negative for neck swelling, polydipsia, polyuria, polyphagia, and marked weight changes, Hematologic/Lymphatic: Negative for swollen nodes, abnormal bleeding, and unusual bruising. 18:53 Neuro: Positive for headache, of the right eye. Exam: 18:53 Constitutional: This is a well developed, well nourished patient who is awake, alert, marielena and in no acute distress. Eyes: Pupils equal round and reactive to light, extra-ocular motions intact. Lids and lashes normal. Conjunctiva and sclera are non-icteric and not injected. Cornea within normal limits. Periorbital areas with no swelling, redness, or edema. ENT: Nares patent. No nasal discharge, no septal abnormalities noted. Tympanic membranes are normal and external auditory canals are clear. Oropharynx with no redness, swelling, or masses, exudates, or evidence of obstruction, uvula midline. Mucous membranes moist. Neck: Trachea midline, no thyromegaly or masses palpated, and no cervical lymphadenopathy. Supple, full range of motion without nuchal rigidity, or vertebral point tenderness. No Meningismus. Chest/axilla: Normal chest wall appearance and motion. Nontender with no deformity. No lesions are appreciated. Cardiovascular: Regular rate and rhythm with a normal S1 and S2. No gallops, murmurs, or rubs. Normal PMI, no JVD. No pulse deficits. Respiratory: Lungs have equal breath sounds bilaterally, clear to auscultation and percussion. No rales, rhonchi or wheezes noted. No increased work of breathing, no retractions or nasal flaring. Abdomen/GI: Soft, non-tender, with normal bowel sounds. No distension or tympany. No guarding or rebound. No evidence of tenderness throughout. Back: No spinal tenderness. No costovertebral tenderness. Full range of motion. Skin: Warm, dry with normal turgor. Normal color with no rashes, no lesions, and no evidence of cellulitis. MS/ Extremity: Pulses equal, no cyanosis. Neurovascular intact. Full, normal range of motion. Neuro: Awake and alert, GCS 15, oriented to person, place, time, and situation. Cranial nerves II-XII grossly intact. Motor strength 5/5 in all extremities. Sensory grossly intact. Cerebellar exam normal. Normal gait. 18:53 Head/face: Noted is ecchymosis, that is mild, of the right eye, hematoma, that is mild, of the right eye. Vital Signs: 18:14 BP 149 / 98; Pulse 76; Resp 16; Temp 98.4; Pulse Ox 100% ; bp [place] Coma Score: 18:14 Eye Response: spontaneous(4). Motor Response: obeys commands(6). Verbal Response: bp oriented(5). Total: 15. 18:52 Eye Response: spontaneous(4). Motor Response: obeys commands(6). Verbal Response: marielena oriented(5). Total: 15. 18:54 Eye Response: spontaneous(4). Motor Response: obeys commands(6). Verbal Response: marielena oriented(5). Total: 15. MDM: 18:24 Patient medically screened. marielena 18:54 Differential diagnosis: Contusion of Hematoma on Laceration of Intracranial bleed- marielena Concussion without LOC. Data reviewed: vital signs, nurses notes, radiologic studies, CT scan. Consideration of Admission/Observation Escalation of care including admission/observation considered. I considered the following discharge prescriptions or medication management in the emergency department Medications were administered in the Emergency Department. See MAR. Test considered but Not performed: MRI: no mri brain. Care significantly affected by the following chronic conditions: tbi. 04/28 18:24 Order name: CT Head C Spine; Complete Time: 18:57 marielena 04/28 18:47 Order name: CT Head C Spine marielena 04/28 18:24 Order name: Ice pack; Complete Time: 19:06 marielena Administered Medications: 19:14 Drug: Swpamvos-Oqheqmcvot-Ouhppfkzu Topical Ointment 1 application {Note: right brow.} kl Route: Topical; Site: right eye; Disposition Summary: 04/28/23 18:57 Discharge Ordered Location: Home marielena Problem: new marielena Symptoms: have improved marielena Condition: Stable marielena Diagnosis - Unspecified injury of head, initial encounter - right brow contusion marielena Followup: marielena - With: Private Physician - When: 2 - 3 days - Reason: Recheck today's complaints, Continuance of care, Re-evaluation by your physician Discharge Instructions: - Discharge Summary Sheet marielena - Head Injury, Adult marielena - Hematoma marielena - Hematoma, [id number] marielena - Head Injury, Adult, [id number] marielena Forms: - Work release form kl - Medication Reconciliation Form marielena - Thank You Letter marielena - Antibiotic Education marielena - Prescription Opioid Use marielena - Patient Portal [email or web address] marielena Signatures: Dispatcher [employer] EDCatrachita Knox, RN RN Dustin Bruno MD MD cha Peltier, Brian, NELSON RN bp
--- NOTE | 2023-04-28 18:57 | ER ---
Nurse's Notes [facility] Name: Alison Morelos Age: 37 yrs Sex: Female : 1985 Arrival Date: 04/28/2023 Time: 18:05 Bed DIS3 Private MD: Diagnosis: Unspecified injury of head, initial encounter-right brow contusion Presentation: 04/28 18:14 Chief complaint: Patient states: R BROW HEMATOMA 2/2 WORK INJURY, NO LOC, NO VISUAL bp DISTURBANCE. Coronavirus screen: At this time, the client does not indicate any symptoms associated with coronavirus-19. Ebola Screen: No symptoms or risks identified at this time. Mechanism of Injury: The problem was sustained at work, resulted from a direct blow. Initial Sepsis Screen: Does the patient meet any 2 criteria? No. Patient's initial sepsis screen is negative. Does the patient have a suspected source of infection? No. Patient's initial sepsis screen is negative. Risk Assessment: Do you want to hurt yourself or someone else? Patient reports no desire to harm self or others. 18:14 Method Of Arrival: Ambulatory bp 18:14 Acuity: TRACI 3 bp Triage Assessment: 18:19 General: Appears in no apparent distress. Behavior is calm, cooperative, appropriate bp for age. Pain: Complains of pain in right eye. EENT: No deficits noted. Neuro: Level of Consciousness is awake, alert, obeys commands, Reports headache. Cardiovascular: No deficits noted. Respiratory: No deficits noted. GI: No signs and/or symptoms were reported involving the gastrointestinal system. : No signs and/or symptoms were reported regarding the genitourinary system. Derm: No deficits noted. Musculoskeletal: No deficits noted. Historical: - Allergies: 18:19 No Known Allergies; bp - PMHx: 18:19 TBI; bp - PSHx: 18:19 back; hip; neck; Tonsillectomy; bp - Immunization history:: Adult Immunizations up to date. - Social history:: Smoking status: Patient denies any tobacco usage or history of. Screenin:15 [facility] ED Fall Risk Assessment (Adult) History of falling in the last 3 months, kl including since admission Yes- single mechanical fall (1 pt) Confusion or Disorientation No (0 pts) Intoxicated or Sedated No (0 pts) Impaired Gait No (0 pts) Mobility Assist Device Used No (0 pt) Altered Elimination No (0 pt) Score/Fall Risk Level 0 - 2 = Low Risk Oriented to surroundings, Maintained a safe environment. Abuse screen: Denies threats or abuse. Nutritional screening: No deficits noted. Tuberculosis screening: No symptoms or risk factors identified. Assessment: 19:14 Neuro: No deficits noted. Level of Consciousness is awake, alert, obeys commands, kl Oriented to person, place, time, situation, Gait is steady, Speech is normal, Facial symmetry appears normal, Pupils are PERRLA. Respiratory: No deficits noted. GI: No deficits noted. No signs and/or symptoms were reported involving the gastrointestinal system. : No deficits noted. No signs and/or symptoms were reported regarding the genitourinary system. Vital Signs: 18:14 BP 149 / 98; Pulse 76; Resp 16; Temp 98.4; Pulse Ox 100% ; bp [place] Coma Score: 18:14 Eye Response: spontaneous(4). Motor Response: obeys commands(6). Verbal Response: bp oriented(5). Total: 15. 18:52 Eye Response: spontaneous(4). Motor Response: obeys commands(6). Verbal Response: marielena oriented(5). Total: 15. 18:54 Eye Response: spontaneous(4). Motor Response: obeys commands(6). Verbal Response: marielena oriented(5). Total: 15. ED Course: 18:06 Patient arrived in ED. rg4 18:19 Triage completed. bp 18:19 Arm band placed on. bp 18:24 Dustin Freitas MD is Attending Physician. marielena 18:49 CT Head C Spine In Process Unspecified. EDMS 18:54 CT Head C Spine In Process Unspecified. EDMS 19:17 No provider procedures requiring assistance completed. Patient did not have IV access kl during this emergency room visit. Administered Medications: 19:14 Drug: Qafdokna-Qmosrwsjbz-Pkqtoheyo Topical Ointment 1 application {Note: right brow.} kl Route: Topical; Site: right eye; Medication: 19:14 VIS not applicable for this client. kl Outcome: 18:57 Discharge ordered by . marielena 19:17 Discharged to home 19:17 Condition: good 19:17 Discharge instructions given to 19:17 Instructed on discharge instructions, follow up and referral plans. Demonstrated understanding of instructions, follow-up care, Prescriptions given X 19:17 Patient left the ED. kl Signatures: Dispatcher [employer] Catrachita Zimmerman RN RN kl Anderson, Corey, MD MD cha Garcia, Rubi rg4 Bernardo Roach RN RN bp
[2023-04-28 19:52] VITALS: BP 149/98; TEMP 98.4; O2SAT 100
== END 2023-04-28 19:17 | disposition home or self-care (01) ==
LOC: ER 18:05
DX: S00.211A Abrasion of right eyelid and periocular area, initial encounter (principal); R51.9 Headache, unspecified
CPT/HCPCS: 70450; 72125; 99283